=== PATIENT | female | born 1960 | race Caucasian/White ===

== ENCOUNTER 2020-07-22 14:02 | Inpatient (IN) | payer SELFPAY ==
[2020-07-22 17:37] VITALS: BMI 22.3
[2020-07-22] MEDS ORDERED: Morphine 4 MG/ML VIAL SLOW IVP PRN (17:53)
[2020-07-22] MEDS ORDERED: Dextrose 5% in Water 1,000 ML IV PRN (17:53)
[2020-07-22] MEDS ORDERED: Morphine 2 MG/ML VIAL SLOW IVP PRN (17:53)
[2020-07-22] MEDS ORDERED: Ondansetron PF 4 MG/2 ML Vial IVP PRN (17:53)
[2020-07-22] MEDS ORDERED: Promethazine HCl 25 MG/ML VIAL IM PRN (17:53)
[2020-07-22] MEDS ORDERED: Dextrose 50% Abboject 50 ML SYRINGE SLOW IVP PRN (17:53)
[2020-07-22] MEDS: Sodium Chloride 0.9% 1,000 ML IV SCH ×2 (18:00→21:10)
[2020-07-22] MEDS ORDERED: Cyclobenzaprine 10 MG TAB PO PRN (18:03)
[2020-07-22] MEDS ORDERED: traMADol HCl 50 MG TAB PO PRN ×2 (18:06)
[2020-07-22] MEDS ORDERED: Ibuprofen 200 MG TAB PO PRN (18:28)
[2020-07-22] MEDS ORDERED: Acetaminophen 325 MG TAB PO SCH ×2 (18:30→21:00)
--- NOTE | 2020-07-22 20:16 | HP ---
REQUESTING PROVIDER: [facility]. ATTENDING PHYSICIAN: Dr. Azevedo. CONSULTS: Orthopedic Surgery, Dr. Nice. CHIEF COMPLAINT: Fall from ladder, approximately 3 feet with delayed presentation; right knee pain. HISTORY OF PRESENT ILLNESS: This is a 60-year-old female who was on a ladder putting up Dre lights yesterday evening when she fell to the ground. The patient denies feeling weak or dizzy or lightheaded prior to falling. Patient did drink alcohol prior to climbing on the ladder. The patient also does report methamphetamine use. The patient denies any loss of consciousness. The patient states that she was home alone when this happened and did not think that her leg was broke. She thought she just had a sprain. The patient was unable to ambulate after falling. The patient presented to the [facility] the next day as she had persistent pain. The patient states that she took a muscle relaxer for the pain last night. The patient was evaluated at [facility] and found to have a comminuted displaced fracture of the proximal tibia and fibula. The patient was transferred to [facility] for definitive care. REVIEW OF SYSTEMS: A 10-point review of systems is negative unless otherwise indicated in the above HPI. PAST MEDICAL HISTORY: Cerebrovascular accident one year ago, reports occasional speech deficit, coronary artery disease, stent placement x1, hyperlipidemia, high cholesterol, and hypertension. PAST SURGICAL HISTORY: Denies. ALLERGIES: IODINE. MEDICATIONS: 1. Coreg 6.25 mg b.i.d. 2. Atorvastatin 20 mg daily. 3. Plavix 75 mg once a day. 4. Prilosec 20 mg daily. 5. Spironolactone 25 mg once a day. 6. Aspirin 81 mg once a day. 7. Folic acid daily. 8. Vitamin B daily. SOCIAL HISTORY: Drinks 3 to 4 wine coolers a day, smokes almost one pack a day, methamphetamine and marijuana use. OBJECTIVE: VITAL SIGNS: Temperature 98.6, pulse 100, respirations 16, SpO2 of 92% on 2 L nasal cannula, blood pressure 132/78. GENERAL: Middle-age female, older than stated age, awake and alert, no distress. HEENT: Mucous membranes moist. Head is atraumatic and normocephalic. Trachea midline, midface stable, oropharynx exam normal. NECK: No cervical spine tenderness, normal range of motion of neck, trachea midline. RESPIRATORY: Respirations are even and nonlabored. Bilateral breath sounds clear. No wheezing, rales, or rhonchi. CARDIAC: Regular rate, regular rhythm. No murmurs. No pedal edema. ABDOMEN: Soft, nontender, nondistended. PELVIS: Stable, no tenderness. EXTREMITIES: Moves all extremities, neurovascularly intact x4. Right lower extremity in a knee immobilizer. NEUROLOGIC: GCS 15, no focal deficits. LABORATORY DATA: WBC 11.5, RBC 4.38, hemoglobin 13.4, hematocrit 41.8, platelets 225. Sodium 136, potassium 3.8, chloride 99, BUN 12, creatinine 0.84, estimated GFR 69, glucose 118, calcium 9.4, AST 18, ALT 15, alkaline phos 96. CK 134, albumin 4.0. Urinalysis unremarkable. Toxicology, positive for opioids, amphetamines, and methamphetamines. DIAGNOSTIC DATA: Cervical spine CT; impression, no evidence of acute cervical fracture. Right knee x-ray; impression, comminuted displaced fracture of proximal tibia and fibula. Chest x-ray; impression, cardiomegaly, nipple shadows versus pulmonary parenchymal masses. Recommend a repeat chest x-ray with nipple markers. Brain CT; impression, no evidence of acute intracranial abnormality. ASSESSMENT: 1. Status post fall from ladder, approximately 3 feet with delayed presentation. 2. Right proximal tibia-fibula fracture. 3. Acute traumatic pain. 4. History of polysubstance abuse, coronary artery disease, cerebrovascular accident, and hypotension. PLAN: Admit to the surgical floor. Heart healthy diet. N.p.o. after midnight with medications and sips of water. Maintenance IV fluids, normal saline at 100 mL an hour. Orthopedic Surgery likely will take the patient to the OR tomorrow for repair of her right proximal tib-fib fracture. We will have PT and OT evaluate and treat postop. We will place a rehab screen just in case the patient needs additional rehab. Pain control. The plan was discussed with the attending. The plan was discussed with the patient who agrees. Job ID: [id number]
[2020-07-22] MEDS: Famotidine 20 MG TAB PO SCH (21:10)
[2020-07-22] MEDS: Senokot S 8.6-50 MG TAB PO SCH (21:11)
[2020-07-23] MEDS: Acetaminophen 325 MG TAB PO SCH ×5 (02:01→20:26)
[2020-07-23] MEDS ORDERED: Morphine 2 MG/ML VIAL SLOW IVP PRN (02:11)
--- NOTE | 2020-07-23 04:29 | PRG ---
DATE OF SERVICE: SUBJECTIVE: The patient was seen this evening during rounds. She was lying in bed, resting comfortably and asleep with no signs of acute distress. Nursing reported no acute events. OBJECTIVE: VITAL SIGNS: Temperature 98.3, pulse 88, respirations 14, oxygen saturation 92% on 2 L nasal cannula, and blood pressure 124/74. GENERAL: Well-appearing elderly female, lying in bed, resting comfortably and asleep with no signs of acute distress. PULMONARY: Equal chest rise and fall. No signs of acute respiratory distress. ASSESSMENT: 1. Status post fall from ladder. 2. Right tib-fib fracture. 3. History of coronary artery disease, cardiac stents, hypertension, methamphetamine use, alcohol abuse, and previous cerebrovascular accident. PLAN: Continue n.p.o. with normal saline at 100 an hour. Start Serax, multivitamins, thiamine, and folic acid. Start scheduled nebs. The patient is pending OR tomorrow with Dr. Nice. Job ID: [id number]
[2020-07-23 05:36] LABS: #Basophils 0.1 thou/uL (0.0-0.2); #Eosinphils 0.5 thou/uL (0.0-0.7); #Lymphocytes 2.5 thou/uL (1.20-3.40); #Monocytes 0.8 thou/uL (0.11-0.59); #Neutrophils 6.8 thou/uL (1.40-6.50); %Basophils 0.7 % (0.0-1.0); %Eosinophils 4.9 % (0.0-10.0); %Lymphocytes 23.3 % (21.0-51.0); %Monocytes 7.4 % (0.0-10.0); %Neutrophils 63.6 % (42.0-75.0); Hemoglobin 10.9 g/dL (12.0-16.0); Mean Corpuscular HGB CONC 33.3 g/dL (32.0-36.0); Mean Corpuscular Hemoglobin 32.3 pg (27.0-31.0); Mean Corpuscular Volume 96.9 fL (78.0-98.0); Mean Platelet Volume 8.6 fL (7.4-10.4); Platelet Count 175 thou/uL (130-400); RBC Distribution Width 11.7 % (11.5-14.5); Red Blood Cell (RBC) Count 3.38 mill/uL (4.20-5.40); White Blood Cell (WBC) Count 10.7 thou/uL (4.8-10.8)
[2020-07-23 05:38] LABS: Prothrombin Time 13.5 sec (12.0-14.7)
[2020-07-23 05:39] LABS: PTT 37.7 sec (22.9-36.1)
[2020-07-23 05:52] LABS: Phosphorus 2.6 mg/dL (2.3-4.7)
[2020-07-23 05:55] LABS: Anion Gap 11 mmol/L (10-20); BUN (Urea Nitrogen) 10 mg/dL (9.8-20.1); Calc. Creatinine Clearance 62 mL/min (70-130); Calcium 8.1 mg/dL (7.8-10.44); Carbon Dioxide 23 mmol/L (23-31); Chloride 106 mmol/L (98-107); Estimated GFR-MDRD 74; Glucose 106 mg/dL (80-115); Magnesium 1.8 mg/dL (1.6-2.6); Potassium 4.2 mmol/L (3.5-5.1); Sodium 136 mmol/L (136-145)
[2020-07-23] MEDS: Oxazepam 10 MG CAP PO SCH ×3 (06:28→20:26)
[2020-07-23] MEDS ORDERED: Magnesium 2 GM/50 ML 2 GM in Premix Bag 1 BAG IVPB SCH (07:30)
[2020-07-23] MEDS ORDERED: Potassium Phosphate 9 MMOL in Sodium Chloride 0.9% 100 ML IVPB SCH (07:30)
[2020-07-23] MEDS ORDERED: CEFAZOLIN 2 GM in Premix Bag 1 BAG IVPB SCH (07:45)
[2020-07-23] MEDS ORDERED: Sodium Phosphate 30 MMOL in Sodium Chloride 0.9% 250 ML 250 ML IVPB SCH (08:00)
--- NOTE | 2020-07-23 08:16 | CON ---
DATE OF CONSULTATION: 07/23/2020 This is Jory Godinez PA-C dictating a report for William Nice MD. REQUESTING PHYSICIAN: Trauma Services. CONSULTING PHYSICIAN: William Niec MD REASON FOR CONSULTATION: Right tibial plateau fracture. HISTORY OF PRESENT ILLNESS: This is a 60-year-old female who presented to the [facility] yesterday after a fall from a ladder while putting up Dre lights the previous day on 07/21/2020. The patient states she was drinking alcohol prior to climbing on the ladder and then fell. She believed at the time that she had a knee sprain, but was unable to ambulate. She also reports methamphetamine use. The patient denied any loss consciousness or head injury. Workup in the [place] [facility] revealed a right tibial plateau fracture. The patient was transferred to our facility for higher level of care and orthopedic surgery. Currently, at bedside, the patient does answer all questions. She is drowsy and falls asleep quickly. Much of her history has been obtained from records due to this. PAST MEDICAL HISTORY: Cerebrovascular accident one year ago, occasional speech deficit, coronary artery disease, stent placement x1, hyperlipidemia, high cholesterol, and hypertension. PAST SURGICAL HISTORY: The patient denies. ALLERGIES: IODINE. FAMILY HISTORY: Unavailable. SOCIAL HISTORY: The patient states that she lives at home with a sibling and a nephew. She ambulates independently. She does report half pack per day smoking history and 2 to 3 wine coolers per day. Also reports methamphetamine abuse. REVIEW OF SYSTEMS: Ten-point review of systems conducted and otherwise negative except for stated above. PHYSICAL EXAMINATION: VITAL SIGNS: Show current vital signs including temperature of 98, pulse of 75, respiratory rate of 14, O2 saturation of 96% on 2 L nasal cannula, and blood pressure 108/68. GENERAL: The patient is awake. She is drowsy at this time. She does follow commands and answer questions. She is in no apparent distress. HEENT: Head is normocephalic and atraumatic. NECK: Supple. Trachea midline. LUNGS: Breathing is nonlabored. EXTREMITIES: Evaluation of the patient's bilateral lower extremity shows the right lower extremity to be in a knee immobilizer. This was opened for evaluation of her skin and swelling. Skin is intact of the lower extremity. She does have minimal to moderate soft tissue swelling without any ecchymosis or fracture blistering at this time. She is able to move her ankle and foot. Distal neurovascular status intact. Dorsalis pedis pulses are present and palpable. Range of motion, not assessed. Log roll evaluation of the hip intact without any hip pain. Left lower extremity and bilateral upper extremity show to be atraumatic. No signs of obvious deformity or injury. RADIOGRAPHIC IMAGING: Available for review today taken yesterday in the [place] facility of the right knee shows evidence of a proximal tibia fracture of the plateau. This is comminuted with displacement. Slightly depressed on the lateral aspect. ASSESSMENT: Status post fall from ladder with right tibial plateau fracture. PLAN: At this point, the patient has been n.p.o. overnight. We will plan for surgical intervention this afternoon in order to restore her anatomic alignment and promote function and mobility. We will plan for ORIF right proximal tibia. The patient is admitted to the Trauma Service. Postoperatively, she will return to her room for pain control and physical therapy. She will be nonweightbearing postoperatively. Plan of care discussed with the patient today. She verbalized understanding and is amenable to this plan of care. Job ID: [id number] [facility]
[2020-07-23] MEDS ORDERED: Sodium Phosphate 20 MMOL, Magnesium Sulfate 2 GM in Sodium Chloride 0.9% 250 ML 250 ML IVPB SCH ×2 (08:45→18:00)
[2020-07-23] MEDS: Polyethylene Glycol 3350 17 GM Packet PO SCH (09:00)
[2020-07-23] MEDS ORDERED: FLU VACC QS2020-21(6MOS UP)/PF 60 MCG/0.5 ML SYRINGE IM ONE (09:00)
[2020-07-23] MEDS: Folic Acid 1 MG TAB PO SCH (09:00)
[2020-07-23] MEDS: Multivitamin W/ Minerals 1 TAB PO SCH (09:00)
[2020-07-23] MEDS: Famotidine 20 MG TAB PO SCH ×2 (09:00→20:27)
[2020-07-23] MEDS ORDERED: Magnesium Sulfate 2 GM in Sodium Chloride 0.9% 100 ML IVPB SCH (09:00)
[2020-07-23] MEDS: Thiamine 100 MG TAB PO SCH (09:01)
[2020-07-23] MEDS: Senokot S 8.6-50 MG TAB PO SCH ×2 (09:01→20:26)
[2020-07-23] MEDS ORDERED: PHENYLEPHRINE-NS 100 MCG/ML 10 ML SYRINGE ONE (11:29)
[2020-07-23] MEDS ORDERED: Lidocaine 1% PF 5 ML VIAL ONE (11:29)
[2020-07-23] MEDS ORDERED: Bupivacaine HCl 0.5%/Epinephrine 1:200,000/PF 30 ml Vial ONE (11:29)
[2020-07-23] MEDS ORDERED: PROPOFOL 200 MG/20 ML VIAL ONE (11:29)
[2020-07-23] MEDS ORDERED: Dexamethasone 20 MG/5 ML VIAL ONE (11:29)
--- NOTE | 2020-07-23 11:30 | RAD ---
EXAM: Chest 2 views: HISTORY: Bilateral lower lobe infiltrates versus nipple shadows. COMPARISON: 07/22/2020 FINDINGS: There is a normal-sized cardiomediastinal silhouette. Nipple marker is seen on the right. No definit e left nipple marker is seen. Opacity projecting over both lung bases are not in the region of the nipple marker on the right and appears more medial than the breast shadow suggesting that the abnorma lity is not a nipple shadow on the left. Trace pleural effusions may be present. Degenerative changes are seen in the spine. IMPRESSION: Bibasilar infiltrates
[2020-07-23 12:10] LABS: SARS-CoV-2 NAA Rapid Test Not Detected (NotDetected)
[2020-07-23] MEDS: traMADol HCl 50 MG TAB PO SCH ×2 (12:31→17:07)
[2020-07-23] MEDS ORDERED: Fentanyl 100 MCG/2 ML VIAL ONE ×2 (13:01→15:05)
[2020-07-23] MEDS ORDERED: Ondansetron HCl/PF 4 MG/2 ML Vial IVP PRN (14:46)
[2020-07-23] MEDS ORDERED: Promethazine HCl 25 MG/ML VIAL SLOW IVP PRN (14:46)
[2020-07-23] MEDS ORDERED: Promethazine HCl 25 MG/ML VIAL IM PRN (14:46)
--- NOTE | 2020-07-23 15:12 | RAD ---
RIGHT KNEE: 07/23/20 Two fluoroscopic images are presented from OR. INDICATIONS: Open reduction and internal fixation with fluoroscopic imaging. FINDINGS/IMPRESSION: these images show fixation of the proximal tibia with plate and screws. POS: [facility]
[2020-07-23] MEDS: Sodium Chloride 0.9% 1,000 ML IV SCH (15:28)
--- NOTE | 2020-07-23 17:59 | OP ---
DATE OF PROCEDURE: 07/23/2020 PROCEDURE PERFORMED: Open reduction and internal fixation of right proximal tibial plateau fracture. PREOPERATIVE DIAGNOSIS: Right lateral tibial plateau fracture with split and depression. POSTOPERATIVE DIAGNOSIS: Right lateral tibial plateau fracture with split and depression. COMPLICATIONS: None. ESTIMATED BLOOD LOSS: 100 mL. TANK CARPENTER: Jose Nino PA-C IMPLANTS: Synthes proximal tibial plateau plate 3.5 mm with multiple locking and nonlocking screws. INDICATIONS: Ms. Young is a 60-year-old female who has fallen and fractured her right proximal tibial plateau. She has been indicated for open reduction and internal fixation of the proximal tibia to restore anatomic alignment and promote healing. Risks have been reviewed in detail. She has elected to proceed with the operation. Goal of surgery is to promote healing in an anatomic fashion and prevent posttraumatic complications. DESCRIPTION OF PROCEDURE: Ms. Young was identified in the preoperative holding area. Her correct extremity was marked. She was carried to the operating room. She was positioned supine. General anesthesia was induced. A multidisciplinary time-out was performed. The right lower extremity was prepped and draped in a sterile fashion. We began the procedure with anterolateral approach to the proximal tibia. We dissected down through the subcutaneous tissues to the fascia, which was opened. We then exposed the underlying tibial plateau. The fascia was elevated proximally and distally. We exposed the underlying fracture. We elevated the tibial plateau laterally. At this point, we exposed the underlying joint and thoroughly irrigated. There was some comminution and depressed fragments. These were elevated back into their anatomic position with a hemostat. We held these with K-wire fixation. We then reduced the main fracture fragment with the lateral split. This was held with a reduction clamp. We applied a lateral plate. We held this again with a K-wire for stability. Next, we placed a distal screw followed by multiple locking screws proximally and distally, this locked the plate to the bone and held our reduction. We maintained anatomic reduction. At this point, we took final images. We thoroughly irrigated with copious lavage. We then repaired the perimeniscal tissues back to the proximal tibia plateau and then completed a layered closure. A sterile dressing was applied. The patient was taken to the recovery room in good condition. The behavioral modification assistant surgeon was responsible for positioning the patient, preparing the injured extremity, applying the tourniquet, and assisting in preparation for surgery. The behavioral modification assistant was instrumental in reducing the injured limb by applying traction and reduction maneuvers as well as holding retractors and reduction tools. The behavioral modification assistant also was instrumental in assisting in exposure throughout the operation using appropriate retractors. The behavioral modification assistant participated in closure of the operative site as well as dressing application and splint application. Job ID: [id number]
--- NOTE | 2020-07-23 18:44 | PRG ---
DATE OF SERVICE: 07/23/2020 SUBJECTIVE: The patient was seen during morning rounds with Dr. Azevedo. The patient is awake, alert, in no distress. The patient has been n.p.o. after midnight with plans for Orthopedic Surgery to repair her right proximal tibial plateau fracture. The patient's pain is well controlled at this time. OBJECTIVE: VITAL SIGNS: Blood pressure 142/84, temperature 98.2, pulse 68, respirations 16, SpO2 of 96% on 2 L nasal cannula. GENERAL: Middle-age female, appears comfortable, in no acute distress. PULMONARY: Good inspiratory and expiratory effort, respirations are even and nonlabored. CARDIAC: Regular rate, regular rhythm, no pedal edema. ABDOMEN: Soft, nontender, nondistended. EXTREMITIES: Moves all extremities, neurovascularly intact x4, right lower extremity in a knee immobilizer. NEUROLOGIC: No focal deficits. LABORATORY DATA: WBC 10.7, RBC 3.38, hemoglobin 10.9, hematocrit 32.8. PT 13.5, INR 1.0, aPTT 37.7. Sodium 136, potassium 4.2, chloride 106, BUN 10, creatinine 0.79, estimated GFR 74, glucose 106, calcium 8.1, phosphorus 2.6, magnesium 1.8. DIAGNOSTICS: There are no new diagnostics to review today. ASSESSMENT: 1. Status post fall from ladder. 2. Right tibial plateau fracture. 3. History of coronary artery disease, cardiac stents, hypertension, methamphetamine abuse, alcohol abuse, and previous cerebrovascular accident. PLAN: Regular diet as tolerated. Pain control and supportive care. Physical and Occupational Therapy to evaluate and treat postop. We will place a rehab screen as the patient may likely need additional physical therapy. We will continue alcohol withdrawal medications. The plan was discussed with the patient, who agrees. The patient was seen by Dr. Azevedo. Job ID: [id number]
[2020-07-23] MEDS: Fenofibrate Nanocrystallized 145 MG TAB PO SCH (20:25)
[2020-07-23] MEDS: CEFAZOLIN 2 GM in Premix Bag 1 BAG IVPB SCH (20:27)
[2020-07-24] MEDS: traMADol HCl 50 MG TAB PO SCH ×5 (00:27→23:58)
--- NOTE | 2020-07-24 02:54 | PRG ---
DATE OF SERVICE: 07/23/2020 SUBJECTIVE: The patient was seen this evening during rounds. She is lying in bed, resting comfortably and asleep with no signs of acute distress. Nursing reported no acute events. OBJECTIVE: VITAL SIGNS: Temperature 97.7, pulse 93, respirations 19, oxygen saturation 95% on room air, and blood pressure 126/76. ASSESSMENT: 1. Status post fall from ladder, on Plavix. 2. Right proximal tibial plateau fracture, status post repair. 3. History of coronary artery disease, cardiac stents, hypertension, polysubstance abuse, and cerebrovascular accident. PLAN: Continue current diet and pain regimen. Continue physical and occupational therapy. Continue supportive care. The patient is pending discharge to acute rehab facility. Job ID: [id number]
[2020-07-24] MEDS: Acetaminophen 325 MG TAB PO SCH ×4 (04:31→21:46)
[2020-07-24 05:25] LABS: Hemoglobin 10.9 g/dL (12.0-16.0); Mean Corpuscular HGB CONC 31.2 g/dL (32.0-36.0); Mean Corpuscular Hemoglobin 30.3 pg (27.0-31.0); Mean Platelet Volume 9.1 fL (7.4-10.4); Platelet Count 188 thou/uL (130-400); RBC Distribution Width 11.9 % (11.5-14.5); Red Blood Cell (RBC) Count 3.61 mill/uL (4.20-5.40); White Blood Cell (WBC) Count 11.7 thou/uL (4.8-10.8)
[2020-07-24] MEDS: Oxazepam 10 MG CAP PO SCH ×3 (05:38→21:47)
[2020-07-24] MEDS: CEFAZOLIN 2 GM in Premix Bag 1 BAG IVPB SCH (05:39)
[2020-07-24 05:58] LABS: Anion Gap 11 mmol/L (10-20); BUN (Urea Nitrogen) 9 mg/dL (9.8-20.1); Calc. Creatinine Clearance 69 mL/min (70-130); Calcium 8.5 mg/dL (7.8-10.44); Carbon Dioxide 26 mmol/L (23-31); Chloride 104 mmol/L (98-107); Estimated GFR-MDRD 83; Glucose 116 mg/dL (80-115); Magnesium 2.2 mg/dL (1.6-2.6); Phosphorus 3.4 mg/dL (2.3-4.7); Sodium 137 mmol/L (136-145)
[2020-07-24] MEDS: Lisinopril/Hydrochlorothiazide 20 mg/12.5 mg Tablet PO SCH (08:32)
[2020-07-24] MEDS: Famotidine 20 MG TAB PO SCH (08:32)
[2020-07-24] MEDS: Senokot S 8.6-50 MG TAB PO SCH ×2 (08:33→21:45)
[2020-07-24] MEDS: Polyethylene Glycol 3350 17 GM Packet PO SCH (08:33)
[2020-07-24] MEDS: Multivitamin W/ Minerals 1 TAB PO SCH (08:33)
[2020-07-24] MEDS: Thiamine 100 MG TAB PO SCH (08:33)
[2020-07-24] MEDS: Folic Acid 1 MG TAB PO SCH (08:33)
[2020-07-24] MEDS: Enoxaparin Sodium 40 MG/0.4 ML SYRINGE SC SCH (11:16)
[2020-07-24] MEDS: Gabapentin 300 MG CAP PO SCH ×2 (14:32→21:47)
--- NOTE | 2020-07-24 18:42 | PRG ---
DATE OF SERVICE: 07/24/2020 SUBJECTIVE: The patient was seen during morning rounds with Dr. Azevedo. Awake, alert, sitting up in bed. The patient is in moderate distress due to pain in her right leg. The patient also reports some pain to her right foot. The patient has no obvious deformities and has good range of motion. A sputum culture was obtained yesterday, which reveals normal respiratory rio. The patient continues to have a chronic cough. The patient is postop day #1 status post open reduction and internal fixation of her right proximal tibial plateau fracture. The patient is only able to pull 1000 mL on her incentive spirometer. OBJECTIVE: VITAL SIGNS: Temperature 98.6, pulse 92, respirations 18, SpO2 of 97% on 2 L nasal cannula, blood pressure 164/86, repeat later in the day 117/65. GENERAL: Middle-age female, moderate distress due to pain. PULMONARY: Good inspiratory and expiratory effort, respirations are even and nonlabored, chronic productive cough. CARDIAC: Regular rate, regular rhythm. No pedal edema. ABDOMEN: Soft, nontender, nondistended. EXTREMITIES: Moves all extremities. Neurovascularly intact x4. Right lower extremity is in a splint. Pain to right foot, no obvious injuries and good range of motion. NEUROLOGIC: No focal deficits. LABORATORY DATA: WBC 11.7, RBC 3.61, hemoglobin 10.9, hematocrit 35.0, platelets 188. Sodium 137, potassium 4.0, BUN 9, creatinine 0.71, estimated GFR 83, glucose 116, calcium 8.5, phosphorus 3.4, magnesium 2.2. DIAGNOSTICS: No new diagnostics to review today. ASSESSMENT: 1. Status post fall from ladder. 2. Right tibial plateau fracture, postop day #1. Status post open reduction and internal fixation. 3. History of coronary artery disease, cardiac stents. 4. Hypertension. 5. Methamphetamine abuse. 6. Alcohol abuse. 7. Previous cerebrovascular accident. PLAN: Continue diet as tolerated. Continue aggressive pulmonary toilet with the use incentive spirometer every hour while awake. Increase pain regimen. We will add gabapentin 300 mg 3 times a day. We will also start patient on chemical VTE prophylaxis. We will continue physical and occupational therapy. Unfortunately, patient has no insurance and this will be difficult to get the patient placed into rehab. The patient is nonweightbearing, right lower extremity. We will have the patient work with physical therapy and once the patient is safe ambulating, the patient can be discharged home. The plan was discussed with the patient who agrees. The patient was examined by Dr. Azevedo. Job ID: [id number]
[2020-07-24] MEDS: Fenofibrate Nanocrystallized 145 MG TAB PO SCH (21:46)
--- NOTE | 2020-07-25 02:06 | PRG ---
DATE OF SERVICE: 07/25/2020 SUBJECTIVE: The patient was seen this evening during rounds. She was lying in bed, resting comfortably and asleep with no signs of acute distress. OBJECTIVE: VITAL SIGNS: Temperature 98, pulse 99, respirations 18, oxygen saturation 93% on room air, and blood pressure 146/89. ASSESSMENT: 1. Status post fall from ladder, on Plavix. 2. Right proximal tibial plateau fracture, status post repair. 3. History of coronary artery disease, cardiac stents, hypertension, polysubstance abuse, and cerebrovascular accident. PLAN: Continue current diet and pain regimen. Continue physical and occupational therapy. The patient is pending discharge home when safe, but she has no insurance. She is ready for discharge whenever deemed appropriate by Physical Therapy. Job ID: [id number]
[2020-07-25] MEDS: Acetaminophen 325 MG TAB PO SCH ×5 (03:22→21:25)
[2020-07-25] MEDS: traMADol HCl 50 MG TAB PO SCH ×3 (04:24→18:26)
[2020-07-25] MEDS: Oxazepam 10 MG CAP PO SCH ×3 (06:07→21:24)
[2020-07-25 06:14] LABS: Hemoglobin 10.1 g/dL (12.0-16.0); Mean Corpuscular Hemoglobin 32.3 pg (27.0-31.0); Mean Platelet Volume 8.9 fL (7.4-10.4); Platelet Count 202 thou/uL (130-400); RBC Distribution Width 12.1 % (11.5-14.5); Red Blood Cell (RBC) Count 3.14 mill/uL (4.20-5.40); White Blood Cell (WBC) Count 11.3 thou/uL (4.8-10.8)
[2020-07-25] MEDS: Lisinopril/Hydrochlorothiazide 20 mg/12.5 mg Tablet PO SCH (08:13)
[2020-07-25] MEDS: Folic Acid 1 MG TAB PO SCH (08:13)
[2020-07-25] MEDS: Senokot S 8.6-50 MG TAB PO SCH ×2 (08:13→21:24)
[2020-07-25] MEDS: Multivitamin W/ Minerals 1 TAB PO SCH (08:13)
[2020-07-25] MEDS: Gabapentin 300 MG CAP PO SCH ×3 (08:13→21:53)
[2020-07-25] MEDS: Thiamine 100 MG TAB PO SCH (08:13)
[2020-07-25] MEDS: Polyethylene Glycol 3350 17 GM Packet PO SCH (08:14)
[2020-07-25] MEDS: Enoxaparin Sodium 40 MG/0.4 ML SYRINGE SC SCH (08:14)
[2020-07-25] MEDS ORDERED: traMADol HCl 50 MG TAB PO PRN (10:55)
[2020-07-25] MEDS: Bisacodyl 10 MG SUPP PR SCH ×2 (11:36→18:28)
--- NOTE | 2020-07-25 13:51 | PRG ---
DATE OF SERVICE: 07/25/2020 SUBJECTIVE: Ms. Young is a 60-year-old female, who is postop day 2 for an ORIF of right tibia and fibular fracture after a fall from a ladder. The patient reports her right knee is in a lot of pain and does not feel that her pain is well controlled. Otherwise, she is eating well and comfortable on room air. She has not had a bowel movement, but she is passing gas. OBJECTIVE: VITAL SIGNS: Temperature 97.7, pulse 98, respirations 18, O2 saturation 92 on room air, and blood pressure 119/77. GENERAL: Middle-aged female, comfortable in bed. PULMONARY: Good inspiratory and expiratory effort. Respirations are even and nonlabored. CARDIAC: Regular rate and rhythm. Moderate edema of right foot. ABDOMEN: Soft, nontender, and nondistended. EXTREMITIES: Moving all extremities well. Right lower extremity is in a splint. NEUROLOGICAL: No focal deficits. LABORATORY DATA: White blood count is 11.3, hemoglobin is 10.1, hematocrit is 30.7, and platelets are 202. ASSESSMENT: 1. Status post fall from ladder. 2. Right tibial plateau fracture postop day 2, status post open reduction and internal fixation. 3. History of coronary artery disease and cardiac stents. 4. Hypertension. 5. Methamphetamine use. 6. Alcohol abuse. 7. Previous cerebrovascular accident. PLAN: 1. Increase the patient's tramadol from 50 mg b.i.d. to 100 mg b.i.d. 2. The patient does not have insurance, will likely not be approved for rehab placement. The patient will continue to work with PT and OT and we will await their evaluation for when she may be stable to be discharged home. The patient was seen and evaluated by Dr. Azevedo during morning rounds. Discussed plan and care with the patient and family, who are in agreement. Job ID: [id number]
[2020-07-25] MEDS ORDERED: Amoxicillin/Potassium Clav 875 MG TAB PO SCH (17:00)
[2020-07-25] MEDS: Amoxicillin/Potassium Clav 875 MG TAB PO SCH (21:24)
[2020-07-25] MEDS: Fenofibrate Nanocrystallized 145 MG TAB PO SCH (21:24)
[2020-07-26] MEDS: traMADol HCl 50 MG TAB PO SCH ×3 (02:02→12:21)
[2020-07-26] MEDS: Acetaminophen 325 MG TAB PO SCH ×3 (05:32→14:31)
[2020-07-26] MEDS: Oxazepam 10 MG CAP PO SCH ×2 (06:28→14:31)
[2020-07-26] MEDS: Lisinopril/Hydrochlorothiazide 20 mg/12.5 mg Tablet PO SCH (09:33)
[2020-07-26] MEDS: Senokot S 8.6-50 MG TAB PO SCH (09:33)
[2020-07-26] MEDS: Multivitamin W/ Minerals 1 TAB PO SCH (09:34)
[2020-07-26] MEDS: Thiamine 100 MG TAB PO SCH (09:35)
[2020-07-26] MEDS: Gabapentin 300 MG CAP PO SCH ×2 (09:35→14:31)
[2020-07-26] MEDS: Folic Acid 1 MG TAB PO SCH (09:35)
[2020-07-26] MEDS: Polyethylene Glycol 3350 17 GM Packet PO SCH (09:35)
[2020-07-26] MEDS: Amoxicillin/Potassium Clav 875 MG TAB PO SCH (09:35)
[2020-07-26] MEDS: Enoxaparin Sodium 40 MG/0.4 ML SYRINGE SC SCH (09:35)
[2020-07-26] MEDS: Bisacodyl 10 MG SUPP PR SCH (09:36)
[2020-07-26 11:33] VITALS: BP 121/73; TEMP 97.9
--- NOTE | 2020-07-26 14:41 | DIS ---
DATE OF ADMISSION: 07/22/2020 DATE OF DISCHARGE: 07/26/2020 DISCHARGE ATTENDING: Dr. Azevedo. CONSULTS: Orthopedic Surgery, Dr. Nice. PROCEDURES: On 07/22/2020, open reduction and internal fixation for right proximal tibial plateau fracture by Dr. Nice. PRIMARY DIAGNOSES: 1. Status post fall from ladder, approximately 3 feet with delayed presentation. 2. Right proximal tibia plateau fracture. 3. Acute traumatic pain secondary to injury. 4. Pneumonia, positive culture, presumptive strep pneumoniae, treated with Augmentin. SECONDARY DIAGNOSES: 1. History of polysubstance abuse. 2. Coronary artery disease. 3. Cerebral vascular accident. 4. Hypertension. DISCHARGE MEDICATIONS: 1. Acetaminophen 650 mg p.o. q.6 hours. Please continue with medications. 2. Amoxicillin 875 mg p.o. q.12 hours for nine days, #17. 3. Flexeril 10 mg p.o. 3 times a day p.r.n. muscle spasms, #20, no refills. 4. Gabapentin 300 mg p.o. q.6 hours three times a day as needed for pain, #60 with one refill. 5. Fenofibrate 145 mg p.o. at bedtime. 6. Ibuprofen 400 mg p.o. q.8 hours p.r.n. breakthrough pain. 7. Lisinopril/hydrochlorothiazide 20 mg/12.5 mg one tablet p.o. daily. 8. Multivitamin daily. 9. Senokot and MiraLAX as needed for constipation. 10. Tramadol 50 mg q.6 hours 1 to 2 tabs p.r.n. pain #60 with one refill. 11. Vitamin C 1000 mg p.o. daily. 12. Dulcolax suppository as needed for constipation. 13. Calcium carbonate/vitamin D3 one tablet daily. 14. Potassium gluconate 500 mg p.o. daily. 15. No discontinued medications. HISTORY OF PRESENT ILLNESS AND HOSPITAL COURSE: This is a 60-year-old female who was on a ladder putting up [place] lights the evening before presenting to the emergency room when she fell, landing on the ground. The patient denied feeling weak, dizzy, or lightheaded prior to falling. The patient did report consuming alcohol prior to climbing the ladder. The patient also does report methamphetamine use. The patient denies any loss of consciousness. The patient states that she had right leg pain after falling, but thought it was just a sprain. The patient continued to drink to help with pain control and decided to be seen the next morning as she continued to have pain and difficulty ambulating. The patient presented to the [facility] the next morning in which she was examined and found to have a left proximal tibial plateau fracture. The patient also states that she took muscle relaxers the night before for the pain. The patient was transferred to [facility] for definitive care. The patient did have some pain control issues preop and postop. The patient reported a chronic productive cough. She smokes daily. Sputum cultures were obtained and the patient had presumptive strep pneumoniae and was treated with Augmentin. The patient eventually was able to ambulate using a walker. Ideally, the patient would have benefitted from rehab, but unfortunately patient is uninsured. The patient did have an extended length of stay for additional physical therapy. On the day of discharge, the patient's vital signs were stable and her exam was unremarkable including cardiopulmonary and GI exam. The patient was deemed safe for discharge home with family. DISPOSITION: Stable. DISCHARGE INSTRUCTIONS: 1. Location: Home. 2. Diet: Regular diet as tolerated. 3. Activity: Orthopedic limitations, nonweightbearing. Left lower extremity with a knee immobilizer in place at all times. The patient is to use a walker to ambulate. 4. Follow up: Follow up with Dr. Nice [facility] in 2 weeks. Follow up with primary care physician within seven days. No need to follow up with Trauma Services, Dr. Azevedo. Please call for any questions. The plan was discussed with the patient who agrees. The prescription monitoring program was accessed and appropriate. This is just a summary of the patient's hospital visit. Please see the entire chart for details. Job ID: [id number]
== END 2020-07-26 15:37 | disposition home or self-care (01) | DRG 492 ==
LOC: SURG B 14:02 → OBSVTOIN 17:53
PROVIDERS: ADMIT Surgery; ATTEND Surgery
PROC: 0QSG04Z Reposition Right Tibia with Internal Fixation Device, Open Approach (ICD-10-PCS; principal; 2020-07-23)
DX: S82.141A Displaced bicondylar fracture of right tibia, initial encounter for closed fracture (principal); J13 Pneumonia due to Streptococcus pneumoniae; Z20.828 Contact with and (suspected) exposure to other viral communicable diseases; W11.XXXA Fall on and from ladder, initial encounter; I25.10 Atherosclerotic heart disease of native coronary artery without angina pectoris; E78.5 Hyperlipidemia, unspecified; E78.00 Pure hypercholesterolemia, unspecified; I10 Essential (primary) hypertension; F15.10 Other stimulant abuse, uncomplicated; F10.10 Alcohol abuse, uncomplicated; Z23 Encounter for immunization; Z91.041 Radiographic dye allergy status; Z79.899 Other long term (current) drug therapy; I69.328 Other speech and language deficits following cerebral infarction; Z95.5 Presence of coronary angioplasty implant and graft
CPT/HCPCS: 36415; 71046; 76000; 80048; 83735; 84100; 85025; 85027; 85610; 85730; 87070; 87077; 87186; 87205; 94640; C1713; J0690; J1100; J1650; J2270; J2704; J3010; J3475; J3490; J7050; J7620; U0002

== ENCOUNTER 2020-08-11 21:54 | Inpatient (IN) | payer SELFPAY ==
--- NOTE | 2020-08-11 22:40 | RAD ---
XR Chest 1 View Portable History: Shortness of breath Comparison: Radiograph August 22, 2020 Findings: Partially resolved lower lobe airspace opacities. New right upper lobe airspace opacity. No pneumothorax. No effusion. Heart size is similar. Impression: Partial resolution of lower lobe with the right upper lobe airspace opacity can be seen w ith organizing pneumonia.
[2020-08-11 23:11] LABS: Anion Gap 18 mmol/L (10-20); Carbon Dioxide 27 mmol/L (23-31); Chloride 96 mmol/L (98-107); Potassium 5.2 mmol/L (3.5-5.1); Sodium 136 mmol/L (136-145)
[2020-08-11 23:13] LABS: BUN (Urea Nitrogen) 34 mg/dL (9.8-20.1); Bilirubin, Total 0.5 mg/dL (0.2-1.2); Calc. Creatinine Clearance 0 mL/min (70-130); Calcium 9.9 mg/dL (7.8-10.44); Glucose 107 mg/dL (80-115); Protein, Total 8.2 g/dL (5.8-8.1)
[2020-08-11 23:14] LABS: ALT (SGPT) 11 U/L (8-55); AST (SGOT) 20 U/L (5-34); Alkaline Phosphatase 154 U/L (40-110); Globulin 4.2 g/dL (2.4-3.5)
[2020-08-11] MEDS ORDERED: Piperacillin/Tazobactam 4.5 GM VIAL ONE (23:14)
[2020-08-11 23:20] LABS: Hemoglobin 11.9 g/dL (12.0-16.0); Mean Corpuscular Hemoglobin 30.1 pg (27.0-31.0); Mean Corpuscular Volume 93.8 fL (78.0-98.0); Red Blood Cell (RBC) Count 3.95 mill/uL (4.20-5.40); White Blood Cell (WBC) Count 20.6 thou/uL (4.8-10.8)
[2020-08-11 23:22] LABS: Manual Diff?? YES; Mean Corpuscular HGB CONC 32.1 g/dL (32.0-36.0); Mean Platelet Volume 8.1 fL (7.4-10.4); Platelet Count 526 thou/uL (130-400); RBC Distribution Width 11.9 % (11.5-14.5)
[2020-08-11 23:24] LABS: Band 36 % (5-11); Eosinophils 5 % (0-10); Lymphocytes 5 % (21-51); Metamyelocyte 1 % (0-0); Monocytes 2 % (0-10); Neutrophil 51 % (42-75)
[2020-08-11 23:27] LABS: MDiff Complete? YES
--- NOTE | 2020-08-11 23:56 | CT ---
CTA Angio Chest W WO Con History: Dyspnea Comparison: Radiograph chest same day. Findings: CT angiogram chest performed after the intravenous administration of contrast. 3-D renderin g provided. No proximal segmental pulmonary arterial filling defect. Small volume pericardial fluid. Moderate sli ding hiatal hernia. Reactive mediastinal lymph nodes. Abnormal right upper lobe parenchymal opacity with some foci of stefanie tral necrosis. Mild tubular bronchiectasis left lower lobe with peripheral consolidation and likely developing scar. Mild right lower lobe bronchiectasis. No pneumothorax. Thoracic spine is intact. Old right-sided rib fractures. No new acute rib fracture. Impression: 1. No pulmonary embolism. 2. Right upper lobe pneumonia with small foci of central necrosis. 3. Moderate left lower lobe tubular bronchiectasis with inspissated peripheral debris and developing scar likely sequelae of healing response to recent pneumonia. 4. Mild tubular bronchiectasis right lower lobe. 5. Follow-up radiograph after treatment recommended. Given the central necrosis in close proximity of the right upper lobe pneumonia with the adjacent bronchi, bronchoscopic evaluation may be beneficial. 6. Moderate hiatal hernia.
[2020-08-12] MEDS ORDERED: Lorazepam 2 MG/ML VIAL ONE (00:37)
[2020-08-12] MEDS ORDERED: Succinylcholine 200 MG/10 ml SYRINGE FS ONE (00:40)
[2020-08-12] MEDS ORDERED: Fentanyl 100 MCG/2 ML VIAL ONE (01:03)
[2020-08-12] MEDS ORDERED: Midazolam HCl 2 mg/2 ml Vial ONE (01:08)
[2020-08-12] MEDS ORDERED: Electrolyte Replacement Protocol 1 EACH IVPB PRN (01:17)
[2020-08-12] MEDS ORDERED: Acetaminophen 325 MG Suppository PR PRN (01:17)
[2020-08-12] MEDS ORDERED: Acetaminophen 650 MG Suppository ONE ×2 (01:27→01:38)
[2020-08-12] MEDS ORDERED: Vancomycin 1 GM/200 ML BAG ONE (01:27)
[2020-08-12] MEDS ORDERED: methylPREDNISolone Sod Succ/PF 125 MG/2 ML VIAL ONE (01:27)
[2020-08-12] MEDS ORDERED: Ventilator Sedation Protocol 1 EACH FS SCH (01:30)
[2020-08-12] MEDS ORDERED: VANCOMYCIN IVPB PRN (01:36)
[2020-08-12 01:45] LABS: Actual Bicarbonate (HCO3a) 21.5 mEq/L (22-28); Analyzer IN Cardio ER; Base Excess (BEa) -6.1 mEq/L (-2.0 to +3.0); CO2 Tension 52.6 mmHg (35.0-45.0); Calcium, Ionized (arterial) 1.14 mmol/L (1.12-1.30); Carboxyhemoglobin (COHb) 0.3 gm% (0.0-3.0); Hemoglobin (Hb) 10.4 g/dL (12.0-16.0); O2 Tension (PaO2), arterial 130.6 mmHg (> 80.0); Potassium - ABG Lab 4.72 mmol/L (3.70-5.30)
[2020-08-12] MEDS ORDERED: Lorazepam 2 MG/ML VIAL SLOW IVP PRN (01:45)
[2020-08-12] MEDS ORDERED: DISCONTINUE PREVIOUS NARCOTIC PAIN MEDICATIONS AND BENZODIAZEPINES FS SCH (01:45)
[2020-08-12] MEDS ORDERED: Fentanyl BOLUS 250 ML IVPB PRN (01:45)
[2020-08-12] MEDS ORDERED: Morphine 2 MG/ML VIAL SLOW IVP PRN (01:45)
[2020-08-12] MEDS ORDERED: Cefepime 2 GM in Sodium Chloride 0.9% 100 ML IVPB SCH (01:45)
[2020-08-12] MEDS ORDERED: Propofol BOLUS 1,000 MG/100 ML VIAL IV PRN (01:45)
--- NOTE | 2020-08-12 01:49 | PDOC.BPN ---
- Brief Progress Note [id number] HP dictated
[2020-08-12] MEDS ORDERED: Norepinephrine 8 MG/0.9% NS 250 ML ONE (02:10)
[2020-08-12 02:47] LABS: SARS-CoV-2 NAA Rapid Test Not Detected (NotDetected)
[2020-08-12 03:33] LABS: Bilirubin Negative (Negative); Blood, Urine Negative (Negative); Clarity Clear (Clear); Glucose, Urine (Dipstick) Normal (Negative); Ketone, Urine Negative (Negative); Leukocyte Negative Leu/uL (Negative); Nitrite Negative (Negative); Protein, Urine (Dipstick) 20 mg/dL (Neg-Trace); Urobilinogen Normal mg/dL (Less than 2)
[2020-08-12 03:36] LABS: Lactic Acid 1.8 mmol/L (0.5-2.2)
[2020-08-12 03:36] LABS: Specific Gravity, Urine 1.046 (1.002-1.036)
[2020-08-12 03:47] LABS: Vancomycin, Trough 30.8 ug/mL
[2020-08-12 04:15] LABS: Lactic Acid 0.9 mmol/L (0.5-2.2)
--- NOTE | 2020-08-12 04:55 | HP ---
CHIEF COMPLAINT: Shortness of breath and chest pain. HISTORY OF PRESENT ILLNESS: Ms. Young is a 60-year-old female with past medical history of polysubstance abuse as per records, coronary artery disease, CVA, hypertension, presented to the emergency room with shortness of breath, left posterior chest pain, generalized weakness for the last few days. The patient was recently admitted to the hospital after she had a fractured tibia and fibula surgery, and developed pneumonia. The patient was discharged on amoxicillin. The patient reports that she has had shortness of breath since she was discharged from the hospital on July 26. She denies nausea, vomiting, diarrhea, abdominal pain, fever, or chills. While in the emergency room, patient's respiratory condition deteriorated, became more hypoxic with increased work of breathing, requiring the patient to be intubated and mechanically ventilated. No further history can be obtained at this time. Currently, patient is intubated and sedated. PAST MEDICAL HISTORY: As mentioned above in history of present illness. PAST SURGICAL HISTORY: Tib-fib surgery. PAST PSYCHIATRIC HISTORY: Anxiety. SOCIAL HISTORY: The patient currently uses drugs, abuses marijuana, abuses methamphetamine. The patient also currently smokes half pack a day. Denies alcohol use as per records. FAMILY HISTORY: Reviewed and noncontributory. ALLERGIES: ALLERGIC TO IODINE. HOME MEDICATIONS: See home medication reconciliation form for updated medications. REVIEW OF SYSTEMS: Unable to obtain. The patient is currently intubated, sedated, mechanically ventilated. PHYSICAL EXAMINATION: GENERAL: The patient is intubated and sedated, mechanically ventilated. VITAL SIGNS: Current vital signs on ventilator, blood pressure is 100/60, pulse is 130, respiratory rate is 22, oxygen saturation is 96% on the ventilator, temperature 99.2. HEAD AND NECK: Normocephalic. Neck is supple. CHEST: Coarse bilateral breath sounds/bilateral expiratory wheeze. HEART: S1, S2. Regular. Tachycardic. ABDOMEN: Soft. Bowel sounds present. NEURO: Intubated, sedated, unable to assess. EXTREMITIES: The right knee is immobilized, recent surgery. PSYCH: Unable to assess. EXTREMITIES: No clubbing or cyanosis. LABORATORY DATA/IMAGING: As mentioned above in history of present illness. CTA of the chest showed right upper lobe pneumonia with small foci of central necrosis. No pulmonary embolism. There is moderate left lower tubular bronchiectasis and also mild tubular bronchiectasis in right lower lobe. Troponin 0.01. Sodium 136, potassium 5.2, BUN is 34, creatinine 1.1. WBC 20.6, hemoglobin 11.9, platelets 526. ASSESSMENT: 1. Acute hypoxic respiratory failure. 2. Pneumonia? Healthcare associated/community-acquired? 3. Sepsis secondary to pneumonia. 4. History of polysubstance abuse. 5. Recent orthopedic surgery/recent trauma. 6. History of coronary artery disease. 7. History of cerebrovascular accident. PLAN: 1. Admit to CCU. 2. Continue full ventilator support. 3. Septic workup done in the ED. 4. Broad-spectrum IV antibiotics. 5. Bronchodilators as needed. 6. IV steroids. 7. Keep n.p.o. for now. 8. Consult Pulmonary/Water Taxi Operator for critical care/vent management. 9. Reconcile home medications. 10. DVT prophylaxis as appropriate. 11. GI prophylaxis as appropriate. 12. The patient's condition is critical. 13. Expected length of stay, 3 midnights or more. Job ID: [id number]
[2020-08-12] MEDS: Sodium Chloride 0.9% 1,000 ML IV SCH ×2 (06:12→14:22)
[2020-08-12] MEDS: Azithromycin 500 MG in Sodium Chloride 0.9% 250 ML 250 ML IVPB SCH (06:12)
[2020-08-12] MEDS: methylPREDNISolone Sod Succ 40 MG VIAL IVP SCH ×3 (06:41→17:10)
[2020-08-12 07:49] LABS: Actual Bicarbonate (HCO3a) 19.2 mEq/L (22-28); Base Excess (BEa) -4.9 mEq/L (-2.0 to +3.0); CO2 Tension 32.2 mmHg (35.0-45.0); Calcium, Ionized (arterial) 1.16 mmol/L (1.12-1.30); Carboxyhemoglobin (COHb) 0.1 gm% (0.0-3.0); Hemoglobin (Hb) 10.4 g/dL (12.0-16.0); O2 Tension (PaO2), arterial 114.6 mmHg (> 80.0); pH, Arterial 7.39 (7.35-7.45)
[2020-08-12 07:50] LABS: Puncture Site LRA
--- NOTE | 2020-08-12 07:54 | RAD ---
Portable frontal chest radiograph: 08/12/2020 COMPARISON: 08/11/2020 HISTORY: Dyspnea, shortness of breath FINDINGS: New endotracheal tube in proper position. There is a nasogastric tube present, distal tip p roximal to the gastroesophageal junction. Nasogastric tube should be advanced. Worsening linear opacity in the medial left base suggests left lower lobe infectious pneumonitis or aspiration with pr obable associated bronchiectasis. Focal opacity in the right perihilar region noted, slightly worsened, better assessed on CT examination performed 08/11/2020. Supine imaging limits assessment for pneumothorax and pleural fluid. IMPRESSION: Nonspecific focal opacity in the right perihilar region and increased linear density in t he medial left base. Lines and tubes as detailed above. Recommend advancing the nasogastric tube.
[2020-08-12] MEDS: Famotidine/PF 20 mg/2ml Vial SLOW IVP SCH (08:02)
[2020-08-12] MEDS ORDERED: Heparin 5,000 UNITS/ML VIAL SC SCH (09:00)
[2020-08-12] MEDS ORDERED: Norepinephrine 8 MG/0.9% NS 250 ML IVPB SCH (09:45)
[2020-08-12] MEDS ORDERED: Nicotine 21 MG PATCH TOP SCH (12:00)
[2020-08-12] MEDS: Cefepime 2 GM in Sodium Chloride 0.9% 100 ML IVPB SCH (14:26)
[2020-08-12] MEDS: fentaNYL Citrate/PF 2,000 MCG in Sodium Chloride 0.9% 60 ML IV SCH (15:29)
[2020-08-12 16:19] LABS: Amphetamine Not Detected (NotDetected); Barbiturates Screen Not Detected (NotDetected); Benzodiazepine Screen Detected (NotDetected); Cocaine Metabolite Screen Not Detected (NotDetected); Medtox Control Line Valid? VALID (VALID); Medtox Reader # READER 4; Methadone Not Detected (NotDetected); Methamphetamine Detected (NotDetected); Opiate Screen Not Detected (NotDetected); Oxycodone Screen Not Detected (NotDetected); Phencyclidine (PCP) Not Detected (NotDetected); THC/Cannabinoid Screen Not Detected (NotDetected); Tricyclic Screen Not Detected (NotDetected)
[2020-08-12 16:23] LABS: Anion Gap 13 mmol/L (10-20); BUN (Urea Nitrogen) 24 mg/dL (9.8-20.1); Calc. Creatinine Clearance 78 mL/min (70-130); Calcium 8.6 mg/dL (7.8-10.44); Carbon Dioxide 20 mmol/L (23-31); Chloride 108 mmol/L (98-107); Glucose 134 mg/dL (80-115); Magnesium 1.6 mg/dL (1.6-2.6); Potassium 4.2 mmol/L (3.5-5.1); Sodium 137 mmol/L (136-145)
[2020-08-12 16:27] LABS: Troponin I 0.875 ng/mL (< 0.028)
[2020-08-12] MEDS ORDERED: Magnesium 2 GM/50 ML 2 GM in Premix Bag 1 BAG IVPB SCH (16:45)
[2020-08-12] MEDS ORDERED: Enoxaparin Sodium 60 MG/0.6 ML SYRINGE SC SCH (17:00)
[2020-08-12] MEDS: Propofol 1,000 MG/100 ML VIAL IV PRN (17:09)
[2020-08-12] MEDS ORDERED: Aspirin 325 MG TAB PO SCH (17:15)
--- NOTE | 2020-08-12 18:49 | PDOC.HOSPP ---
- Subjective Encounter Date: 08/12/20 Encounter Time: 14:00 Subjective: Patient was seen and examined in ICU. She was intubatedcould not communicate. She was admitted on account of pneumonia and started antibiotics. Nurse called me to inform me that she was having bigeminy Ordered troponin 0.87 from 0.013 at presentation. Magnesium was also slightly result 1.6. Started on aspirin and Lovenox Replace magnesium Consulted cardiology. Patient had oozing from the site of femoral line. Platelets were above 500,000 in a.m.repeat CBC We will however continue with Lovenox and aspirin follow-up for NSTEMI Monitor. - Objective Vital Signs & Weight: Vital Signs (12 hours) Temp Pulse Resp Pulse Ox 08/12/20 18:00 20 08/12/20 16:00 20 08/12/20 14:00 20 08/12/20 13:51 93 08/12/20 12:00 20 08/12/20 10:58 93 08/12/20 10:00 20 08/12/20 08:00 20 99 08/12/20 07:38 75 08/12/20 07:00 99.8 F H Weight Admit Weight 128 lb Weight 128 lb 8.472 oz Most Recent Monitor Data Heart Rate from ECG 66 NIBP 101/61 NIBP BP-Mean 74 Respiration from ECG 20 SpO2 98 I&O: 08/11/20 08/12/20 08/13/20 06:59 06:59 06:59 Intake Total 1229.5 Output Total 60 760 Balance -60 469.5 Result Diagrams: 08/11/20 22:31 08/12/20 15:49 Hospitalist ROS - Medication Medications: Active Medications Generic Name Dose Route Start Last Admin Trade Name Freq PRN Reason Stop Dose Admin Aspirin 325 mg 08/12/20 17:15 08/12/20 17:43 Aspirin 325 Mg Tab PO 08/12/20 19:15 325 mg NOW MARCUS Administration Enoxaparin Sodium 60 mg 08/12/20 17:00 08/12/20 17:43 Enoxaparin Sodium 60 Mg/0.6 Ml Syringe SC 08/12/20 19:00 60 mg NOW MARCUS Administration Famotidine 20 mg 08/12/20 09:00 08/12/20 08:02 Famotidine/Pf 20 Mg/2ml Vial SLOW IVP 20 mg 0900 MARCUS Administration Fentanyl Citrate 2,000 mcg/ 100 mls @ 0 mls/hr 08/12/20 01:15 08/12/20 15:29 Sodium Chloride IV 09/11/20 01:15 100 mls INF MARCUS Administration Protocol Per Protocol Cefepime HCl 2 gm/ Sodium 100 mls @ 200 mls/hr 08/12/20 14:00 08/12/20 14:26 Chloride IVPB 100 mls 0200,1400 MARCUS Administration Azithromycin 500 mg/ Sodium 250 mls @ 250 mls/hr 08/12/20 01:30 08/12/20 06:12 Chloride IVPB Not Given Q24HR MARCUS Sodium Chloride 1,000 mls @ 75 mls/hr 08/12/20 01:30 08/12/20 14:22 Normal Saline 0.9% IV 1,000 mls .[id number] MARCUS Administration Methylprednisolone Sodium Succinate 40 mg 08/12/20 06:00 08/12/20 17:10 Methylprednisolone Sod Succ 40 Mg Vial IVP 40 mg Q6HR MARCUS Administration Nicotine 21 mg 08/12/20 12:00 08/12/20 12:43 Nicotine 21 Mg Patch TOP 21 mg Q24HR MARCUS Administration Propofol 1,000 mg 08/12/20 01:45 08/12/20 17:09 Propofol 1,000 Mg/100 Ml Vial IV 09/11/20 01:45 1,000 mg INF PRN Administration TO ACHIEVE GOAL RASS Protocol
--- NOTE | 2020-08-12 19:07 | CON ---
DATE OF CONSULTATION: 08/12/2020 HISTORY OF PRESENT ILLNESS: Nicky Young is a 60-year-old female who was intubated in the emergency department. She was in the hospital last month here, but has not been in the hospital before that. She apparently fell off a ladder at that time and was reported as using methamphetamine and alcohol prior to falling off the ladder. She had a tib-fib displaced fracture. According to those records, she drinks 3 to 4 wine coolers a day and smokes a pack a day. Uses methamphetamine and marijuana. She was hospitalized from the and was discharged on the . She did have a chest x-ray during that admission that showed actually bibasilar infiltrates. She was discharged on Augmentin for 9 more days after discharge. It appears from reviewing all records that she has had a CVA in the past. She has a history of hypertension. She has a history of coronary artery disease. FAMILY HISTORY: Negative for lung disease in early age according to old records. REVIEW OF SYSTEMS: Not obtainable. PHYSICAL EXAMINATION: VITAL SIGNS: Heart rate is 93, blood pressure 104/66, respiratory rate is 20, FiO2 is at 40%. HEENT: Pupils are reactive. Sclerae are anicteric. NECK: Supple. LUNGS: Remarkable for distant breath sounds with prolonged expiratory phase. HEART: Regular rhythm. S1 and S2 are normal. ABDOMEN: Soft and nontender without guarding or masses. EXTREMITIES: Without clubbing, cyanosis, or edema. ASSESSMENT AND PLAN: Chest CT is reviewed showing a small area of alveolar infiltrate with central necrosis. It is not very large. This would not explain her shortness of breath. It is more likely that her shortness of breath would be related to an airway issue such as chronic obstructive pulmonary disease or asthma given her prolonged expiratory phase. I will repeat a drug screen while she is here. We will continue with mechanical ventilation for now. She is not weanable today, but we will reassess her in the morning. Looking at her blood gas, her pH is 7.39, pCO2 is 32, and pO2 is 114. She did not have an acid-base disorder on presentation that would explain tachypnea. She did have a high serum protein and globulin. There is no lab for comparison with regard to this well, but I will doubt that is secondary to intravascular volume depletion with her drinking and drug history. We will follow the other physicians caring for. CRITICAL CARE TIME: 30 minutes. Job ID: [id number] MTDD
[2020-08-12 21:44] LABS: Critical Call Chem Troponin I RESULT DECREASING; Troponin I 0.776 ng/mL (< 0.028)
[2020-08-12 22:15] LABS: Band 27 % (5-11); Hemoglobin 9.5 g/dL (12.0-16.0); Lymphocytes 9 % (21-51); MDiff Complete? YES; Mean Corpuscular Hemoglobin 30.8 pg (27.0-31.0); Mean Corpuscular Volume 96.5 fL (78.0-98.0); Mean Platelet Volume 8.2 fL (7.4-10.4); Neutrophil 64 % (42-75); Platelet Count 418 thou/uL (130-400); RBC Distribution Width 11.9 % (11.5-14.5); Red Blood Cell (RBC) Count 3.08 mill/uL (4.20-5.40)
--- NOTE | 2020-08-12 22:26 | CON ---
DATE OF CONSULTATION: HISTORY OF PRESENT ILLNESS: Nicky Roe is a 60-year-old white female who currently is intubated and sedated in the ICU. History is obtained from reviewing her recent admission. She apparently has coronary artery disease and stent placement x1; although, no particulars regarding when that was done are available. She also had history of cerebrovascular accident one year ago. She was admitted here on July 22 after she fell off a ladder while putting up [place] lights. She went to the [place] ER the next day due to persistent pain and found to have a comminuted displaced fracture of the proximal tibia and fibula. She then underwent open reduction, internal fixation of the right proximal tibial plateau fracture. It is of note that she was on Plavix 75 daily and aspirin 81 daily. However, neither one of those medications were on her discharge medicine list. She was discharged on July 26. Also during that admission, she did develop pneumonia and was treated with antibiotics. She then presented early this morning again to the emergency room complaining of increased shortness of breath. She also had some left posterior chest pain. In emergency room, her respiratory status deteriorated. She became more hypoxic and was intubated and is currently sedated. She currently is on norepinephrine and propofol. PAST MEDICAL HISTORY: Cerebrovascular accident 1 year ago, history of coronary artery disease with stent placement, unknown date, hypercholesterolemia, hypertension. OPERATIONS: ORIF of right proximal tibial plateau fracture. Coronary artery stent placement. MEDICATIONS: 1. Augmentin 875 mg b.i.d. 2. Dulcolax p.r.n. 3. Flexeril 10 mg t.i.d. p.r.n. 4. Fenofibrate 145 at bedtime. 5. Gabapentin 300 t.i.d. 6. Ibuprofen 400 q.8 hours p.r.n. 7. Lisinopril/hydrochlorothiazide daily. 8. Potassium gluconate 500 mg daily. 9. Senokot. 10. Ultram. 11. (Also of note is that she was on carvedilol 6.25 b.i.d. when first admitted and this was not on her discharge medicine list). ALLERGIES: IODINE, UNKNOWN REACTION. SOCIAL HISTORY: She smokes one pack per day. She uses methamphetamine and marijuana. Drinks 3-4 wine coolers per day. REVIEW OF SYSTEMS: Unobtainable. PHYSICAL EXAMINATION: VITAL SIGNS: Blood pressure 104/64, pulse of 71, occasional PVCs. HEENT: PERRL. NECK: Supple. CHEST: Clear. CARDIAC: S1 and S2 normal without any S3, S4, or murmurs. ABDOMEN: Normal bowel sounds without tenderness. EXTREMITIES: Reveal no clubbing, cyanosis, or edema. NEUROLOGICAL: Patient is sedated. LABORATORY DATA: Initial EKG revealed sinus tachycardia, 134 per minute with anterior infarction, low voltage. Subsequent EKG reveals normal sinus rhythm with low voltage and new anterolateral T-wave changes consistent with ischemia. Hemoglobin 11.9, hematocrit 37.1, white count 20,600, platelets 526. Ph 7.39, pCO2 32.2, PO2 114.6. Sodium 137, potassium 4.2, chloride 108, carbon dioxide 20, BUN 24, creatinine 0.69. Troponin I is up to 0.875. IMPRESSION: 1. Acute hypoxic respiratory failure. 2. Possible pneumonia with sepsis related to this. 3. History of polysubstance abuse with methamphetamines in the urine. 4. History of coronary artery disease status post stent placement. She was on aspirin and Plavix at the time of her admission with her leg fracture and apparently this was never restarted at time of discharge. 5. New anterolateral T changes consistent with ischemia, NSTEMI type 1. 6. Hypertension 7. Hypercholesterolemia 8. Smoker. 9. History of cerebrovascular accident. PLAN: Aspirin has been restarted, also restart her on Plavix since I am uncertain when her coronary artery stent was placed. Once we are able to get a better history, we will try to get records from when she had her CVA as well as when she had coronary artery stent placed. She will continue with broad-spectrum antibiotics. Echocardiogram has been ordered. Job ID: [id number] [facility]
--- NOTE | 2020-08-13 00:03 | PDOC.EVN ---
Event Note - Event Note Event Note: Nursing reports bleeding from femoral central line site, oral cavity and NGT. Patient intubated, on levophed, VSS. Patient on LMWH 1mg/kg and ASA. Hold anticoagulation, check DIC panel, T&S. Recent H/H drop 2 points compared to previous day. Will recheck H/H at 0100. Discussed with Dr. Spangler.
[2020-08-13 00:18] LABS: Fibrinogen 572 mg/dL (253-463); INR-International Normal Ratio 1.3
[2020-08-13 00:19] LABS: D-Dimer Test 1.59 *mcg/mL (0.27-0.43)
[2020-08-13 00:42] LABS: FSP-Qualitative Normal (Normal)
[2020-08-13 00:46] LABS: Platelet Count 409 thou/uL (130-400)
[2020-08-13 00:49] LABS: Puncture Site LRA; pH, Arterial 7.23 (7.35-7.45)
[2020-08-13] MEDS: Propofol 1,000 MG/100 ML VIAL IV PRN (01:05)
[2020-08-13] MEDS: methylPREDNISolone Sod Succ 40 MG VIAL IVP SCH ×5 (01:06→23:32)
[2020-08-13] MEDS: Azithromycin 500 MG in Sodium Chloride 0.9% 250 ML 250 ML IVPB SCH (01:45)
[2020-08-13 01:55] LABS: Troponin I 0.816 ng/mL (< 0.028)
[2020-08-13] MEDS ORDERED: Vancomycin 1 GM in Premix Bag 1 BAG IVPB SCH (02:00)
[2020-08-13] MEDS: Cefepime 2 GM in Sodium Chloride 0.9% 100 ML IVPB SCH ×2 (04:17→14:00)
[2020-08-13 05:03] LABS: ALT (SGPT) 9 U/L (8-55); AST (SGOT) 22 U/L (5-34); Albumin 2.9 g/dL (3.4-4.8); Alkaline Phosphatase 121 U/L (40-110); Anion Gap 13 mmol/L (10-20); BUN (Urea Nitrogen) 25 mg/dL (9.8-20.1); Bilirubin, Total 0.2 mg/dL (0.2-1.2); Calc. Creatinine Clearance 74 mL/min (70-130); Carbon Dioxide 21 mmol/L (23-31); Chloride 107 mmol/L (98-107); Globulin 3.2 g/dL (2.4-3.5); Glucose 157 mg/dL (80-115); Potassium 4.1 mmol/L (3.5-5.1); Protein, Total 6.1 g/dL (6.0-8.3); Sodium 137 mmol/L (136-145)
[2020-08-13 05:36] LABS: Hemoglobin 9.2 g/dL (12.0-16.0); Mean Corpuscular Hemoglobin 31.4 pg (27.0-31.0); Mean Corpuscular Volume 98.2 fL (78.0-98.0); Mean Platelet Volume 8.6 fL (7.4-10.4); Platelet Count 389 thou/uL (130-400); RBC Distribution Width 11.9 % (11.5-14.5); Red Blood Cell (RBC) Count 2.92 mill/uL (4.20-5.40); White Blood Cell (WBC) Count 25.5 thou/uL (4.8-10.8)
[2020-08-13 05:51] LABS: Band 40 % (5-11); Lymphocytes 4 % (21-51); MDiff Complete? YES; Monocytes 1 % (0-10); Neutrophil 55 % (42-75)
[2020-08-13] MEDS: Sodium Chloride 0.9% 1,000 ML IV SCH ×2 (06:36→17:55)
--- NOTE | 2020-08-13 08:02 | RAD ---
Portable frontal chest radiograph: 08/13/2020 COMPARISON: 08/12/2020 HISTORY: Ventilated CCU patient FINDINGS: Focal opacity in the right perihilar region persists. There is hazy linear increased densit y again noted within the left lung base as well. Endotracheal tube and nasogastric tube are unchanged. IMPRESSION: No significant interval change. Continued follow-up to resolution advised.
[2020-08-13 08:15] LABS: Base Excess (BEa) 0.4 mEq/L (-2.0 to +3.0); CO2 Tension 34.7 mmHg (35.0-45.0); Calcium, Ionized (arterial) 1.23 mmol/L (1.12-1.30); Carboxyhemoglobin (COHb) 0.3 gm% (0.0-3.0); Hemoglobin (Hb) 9.5 g/dL (12.0-16.0); O2 Tension (PaO2), arterial 136.8 mmHg (> 80.0); Potassium - ABG Lab 4.05 mmol/L (3.70-5.30); pH, Arterial 7.46 (7.35-7.45)
[2020-08-13 08:16] LABS: Puncture Site LRA
[2020-08-13 08:18] LABS: ALV-art Gradient 105.025 mmHg (0-20)
[2020-08-13] MEDS: fentaNYL Citrate/PF 2,000 MCG in Sodium Chloride 0.9% 60 ML IV SCH ×2 (08:26→23:12)
[2020-08-13] MEDS ORDERED: Enoxaparin Sodium 60 MG/0.6 ML SYRINGE SC SCH (09:00)
[2020-08-13] MEDS: Famotidine/PF 20 mg/2ml Vial SLOW IVP SCH ×2 (09:00→20:55)
[2020-08-13] MEDS ORDERED: Aspirin 81 mg Enteric Coated Tablet PO SCH ×2 (09:00)
[2020-08-13] MEDS ORDERED: Aspirin 325 MG TAB PO SCH (09:00)
[2020-08-13 17:24] LABS: Hemoglobin 8.3 g/dL (12.0-16.0)
--- NOTE | 2020-08-13 17:25 | PDOC.HOSPP ---
- Subjective Encounter Date: 08/13/20 Encounter Time: 11:00 Subjective: Patient was seen and examined in bed. She remained in ICU on ventilator support. She had oozing of blood from her right groin catheter placement site and threw him off overnight. DIC panel ordered and were all negative. Her Lovenox was stopped as well as aspirin - Objective Vital Signs & Weight: Vital Signs (12 hours) Temp Pulse Resp Pulse Ox 08/13/20 14:00 14 08/13/20 13:41 70 08/13/20 12:00 98.9 F 14 08/13/20 10:39 74 08/13/20 10:00 14 08/13/20 09:00 98.8 F 08/13/20 08:09 73 08/13/20 08:00 14 100 08/13/20 06:00 20 Weight Admit Weight 128 lb Weight 126 lb 8.725 oz Most Recent Monitor Data Heart Rate from ECG 74 NIBP 115/65 NIBP BP-Mean 81 Respiration from ECG 18 SpO2 99 I&O: 08/12/20 08/13/20 08/14/20 06:59 06:59 06:59 Intake Total 2606.5 Output Total 60 2305 515 Balance -60 301.5 -515 Result Diagrams: 08/13/20 14:13 08/13/20 04:10 Hospitalist ROS - Medication Medications: Active Medications Generic Name Dose Route Start Last Admin Trade Name Freq PRN Reason Stop Dose Admin Albuterol/Ipratropium 3 ml 08/12/20 19:00 08/13/20 13:41 Ipratropium/Albuterol Sulfate 3 Ml Neb NEB 3 ml [id number] MARCUS Administration Fentanyl Citrate 2,000 mcg/ 100 mls @ 0 mls/hr 08/12/20 01:15 08/13/20 08:26 Sodium Chloride IV 09/11/20 01:15 100 mls INF MARCUS Administration Protocol Per Protocol Cefepime HCl 2 gm/ Sodium 100 mls @ 200 mls/hr 08/12/20 14:00 08/13/20 04:17 Chloride IVPB 100 mls 0200,1400 MARCUS Administration Azithromycin 500 mg/ Sodium 250 mls @ 250 mls/hr 08/12/20 01:30 08/13/20 01:45 Chloride IVPB 250 mls Q24HR MARCUS Administration Sodium Chloride 1,000 mls @ 75 mls/hr 08/12/20 01:30 08/13/20 06:36 Normal Saline 0.9% IV 1,000 mls .[id number] MARCUS Administration Vancomycin HCl 1 gm/ Device 200 mls @ 200 mls/hr 08/13/20 02:00 08/13/20 01:06 IVPB 200 mls 0200 MARCUS Administration Lorazepam 2 mg 08/12/20 01:45 08/13/20 11:02 Lorazepam 2 Mg/Ml Vial SLOW IVP 09/11/20 01:45 2 mg Q1H PRN Administration Breakthrough agitation Methylprednisolone Sodium Succinate 40 mg 08/12/20 06:00 08/13/20 12:35 Methylprednisolone Sod Succ 40 Mg Vial IVP 40 mg Q6HR MARCUS Administration Propofol 1,000 mg 08/12/20 01:45 08/13/20 01:05 Propofol 1,000 Mg/100 Ml Vial IV 09/11/20 01:45 1,000 mg INF PRN Administration TO ACHIEVE GOAL RASS Protocol - Exam General - other findings: Patient in bed, on ventilator support. Eye: anicteric sclera Eye - other findings: Pupils reactive bilaterally Heart: RRR, no murmur, no gallops Respiratory - other findings: Mechanical breath sounds bilaterally, occasional wheezing. No event Gastrointestinal: soft, non-distended, normal bowel sounds Extremities: no cyanosis, no clubbing, no edema Extremities - other findings: Catheter site right groin oozing blood Neurological - other findings: Patient obtunded on ventilator Psychiatric - other findings: Unable to assess Hosp A/P - Plan This is a 60-year-old female patient recent admission on account of right lower limb fracture status post surgery, presents with worsening shortness of breath and admitted for severe pneumonia required intubation. She also has a history of CVA and CAD status post stenting. On 08/12/2020 while on intubation in ICU she developed bigeminy and troponins were elevatedwas started on Lovenox and aspirin however these have been discontinued on account of bleeding. Acute hypoxic respiratory failure Secondary to pneumonia PE ruled out with CTA Continue on ventilator support Appreciate pulmonology input Pneumonia Continue antibioticsazithromycin and cefepime and vancomycin Pulmonology following. NSTEMI Bigeminy with elevated troponin a day ago Echocardiogram shows an akinetic wall motion Started on Lovenox however discontinued account of increasing bleeding. Aspirin was also discontinued Cardiology following. Bleeding Patient bleeding from right groin femoral access Also bleeding noted from mouth She does not appear to be coagulopathic however Hold Lovenox and monitor. GI consulted for possible GI bleed evaluation. Right lower limb fracture Status post ORIF We will consult orthopedics once stable History of CVA Continue monitoring Carotid artery disease Status post stenting Awaiting transfer of information CODE STATUSto be discussed. VTE prophylaxisSCD on account of bleeding
--- NOTE | 2020-08-13 18:53 | PRG ---
DATE OF SERVICE: 08/13/2020 SUBJECTIVE: Nicky Young remains mechanically ventilated. She has been oozing from all puncture sites. Surprisingly, yesterday her coags were normal. I have given her plasma today. She has had bleeding in her mouth, bleeding from her femoral line. She has an adequate number of platelets. OBJECTIVE: LUNGS: Remarkable for coarse equal breath sounds. HEART: Regular rhythm. ABDOMEN: Soft. Her hemodynamics are stable. IMPRESSION: 1. Pneumonia. 2. Probable chronic obstructive pulmonary disease. 3. Apparently, the family has relayed to the nursing staff that she is an extremely heavy drinker. She has been told in the past that if she does not quit drinking, she is not going to live another year. We are at a one year point from when she was told that. She was given Lovenox yesterday, which may have contributed to her oozing. Hopefully, the plasma will help. She will continue with steroids and nebulizer treatments. Steroid dosing will be decreased in the morning and we will continue to make slow changes in ventilatory support. Blood cultures are negative. I see no reason to continue vancomycin. Critical care time, 30 minutes. Job ID: [id number]
[2020-08-13 19:45] LABS: Hemoglobin 6.9 g/dL (12.0-16.0)
[2020-08-14 00:17] LABS: Hemoglobin 7.9 g/dL (12.0-16.0)
[2020-08-14] MEDS: Cefepime 2 GM in Sodium Chloride 0.9% 100 ML IVPB SCH ×2 (00:39→14:21)
[2020-08-14 02:08] LABS: Vancomycin, Trough 7.4 ug/mL
--- NOTE | 2020-08-14 04:20 | CON ---
DATE OF CONSULTATION: 08/13/2020 REASON FOR CONSULTATION: GI bleeding. HISTORY OF PRESENT ILLNESS: Ms. Nicky Young is a 60-year-old female seen in the ER last night with dyspnea on chest pain. Since admission, the patient was seen by Dr. Vance Galicia and Dr. Maksim See. Apparently, she was in respiratory failure and respiratory distress and was intubated. She is on the ventilator. She had an NG tube, which is draining dark blood. Also, nurse has been suctioning the throat very frequently. There was fresh blood clots. Not very sure if the blood is coming from the mouth or if she has some upper GI bleeding. The patient's history is not available. The patient apparently was seen here three weeks ago with fracture of the right tibia and fibula and had a surgery by Dr. Nice. I was not able to obtain medical history. Apparently, one of the nurses spoke to her daughter and daughter told the nurses that she has had coronary stent placement a few months ago at [place]. She also was told to have liver cirrhosis and also stopped drinking. Apparently, the patient is drinking very heavily and as per daughter, she continues to drink heavy alcohol. There is no history of GI bleeding before she came to the hospital. There is also history of polysubstance abuse in the past. She has history of coronary artery disease, CVA, hypertension, etc. The patient had a colonoscopy in 2016, and has had polyps removed. Her vital signs are actually stable. Her pulse is 86, blood pressure 148/78. Her lab data shows anemia. The hemoglobin on admission 11.9, hematocrit 37.1, platelet count 526,000, WBC 20,600, it has been dropping down slowly. The most recent hemoglobin has dropped to 6.9 tonight. She has had no melena. No relevant history overall. MEDICAL ILLNESSES: 1. Hypertension. 2. Coronary artery disease. 3. CVA. 4. Colon polyp. 5. History of coronary stent placement few months ago in [place]. 6. Liver cirrhosis for the family. 7. History of recent fracture of the right leg and surgery. 8. History of anxiety. SOCIAL HISTORY: As per admitting history and physical, apparently she uses methamphetamine and also uses drugs like marijuana, etc. She smoked half a packet of cigarettes per day. As per daughter, she has history of chronic alcohol abuse. ALLERGIES: IODINE. REVIEW OF SYSTEMS: Unfortunately, 12-point system review could not be obtained. PHYSICAL EXAMINATION: GENERAL: She is on the ventilator, sedated. VITAL SIGNS: Stable as mentioned earlier. HEENT: Conjunctivae clear. CARDIOVASCULAR: Normal heart sounds. LUNGS: Clear to auscultation. ABDOMEN: Soft and nondistended. Abdomen is nontender. EXTREMITIES: In the right leg, she has leg stabilizer and some screws. CLINICAL IMPRESSION: 1. Gastrointestinal bleeding, etiology unclear, possibilities include esophageal varices, erosive gastritis, bleeding ulcer, etc. 2. Pneumonia. 3. Possible chronic obstructive pulmonary disease. 4. Hypertension. 5. Status post cerebrovascular accident recovery. 6. Coronary artery disease, status post stent placement few months ago. 7. History of liver cirrhosis for the family. PLAN: 1. Continue to follow the labs. 2. Transfuse p.r.n. 3. Emergent EGD tonight and I will make further recommendations. As per the consult by Dr. Galicia, she has possible anterolateral T-wave changes consistent with ischemia and possibly non-STEMI type 1. Job ID: [id number]
[2020-08-14] MEDS: Propofol 1,000 MG/100 ML VIAL IV PRN ×2 (04:46→19:00)
--- NOTE | 2020-08-14 04:46 | OP ---
DATE OF PROCEDURE: 08/13/2020 OPERATIVE PROCEDURE: Esophagogastroduodenoscopy. PREOPERATIVE DIAGNOSIS: Suspected gastrointestinal bleeding as she has had constant suctioning of throat with blood clots and fresh blood coming up. The NG tube also showed some coffee-ground material. POSTOPERATIVE DIAGNOSES: 1. Normal esophageal mucosa. No heme staining noted. No esophageal varices seen. 2. She had a distal esophageal ring nonobstructing. 3. Gastric polyps and polyps in the duodenum. There was no fresh blood or any active bleeding seen in the stomach. Although, she had diffuse coating of the gastric mucosa, some coffee-ground material. DESCRIPTION OF PROCEDURE: The patient was already on the ventilator. She was given a propofol bolus at 10 cc increment. Total was 30 cc. A bite block was placed. The patient on the left lateral position. A [employer]ax videogastroscope under direct vision passed down the oropharynx, past the GE junction into the stomach. The esophageal mucosa appears completely normal. There was no heme staining seen. There was no coffee-ground coating of the mucosa seen. There was no esophageal varices seen. The GE junction showed an esophageal ring nonobstructing. Upon entering the stomach, the patient was found to have diffuse coating of the gastric mucosa with coffee-ground material. There were some clots seen. There was no fresh blood seen. Water was irrigated and washed . There were some gastric polyps on the gastric body. The incisura angularis, gastric antrum, and duodenum, descending colon, no pathology. She had some duodenal polyp. The scope was carefully withdrawn and examination of the posterior pharynx does show some fresh blood and clots. IMPRESSION: Bleeding appears to be more from the oral cavity and posterior pharynx. RECOMMENDATION: 1. Consider ENT input. 2. Her blood count has been dropping down to 6.9 from 11. We plan to transfuse 2 units of packed RBCs today and let us check the blood count tomorrow morning. Job ID: [id number]
[2020-08-14 05:06] LABS: ALT (SGPT) 9 U/L (8-55); AST (SGOT) 14 U/L (5-34); Alkaline Phosphatase 87 U/L (40-110); Anion Gap 12 mmol/L (10-20); BUN (Urea Nitrogen) 25 mg/dL (9.8-20.1); Bilirubin, Total 0.3 mg/dL (0.2-1.2); Calc. Creatinine Clearance 83 mL/min (70-130); Calcium 8.8 mg/dL (7.8-10.44); Carbon Dioxide 25 mmol/L (23-31); Cardiac Risk 4.8 (Less than 4.5); Chloride 108 mmol/L (98-107); Cholesterol 158 mg/dl (< 200 Desired); Globulin 2.8 g/dL (2.4-3.5); Glucose 121 mg/dL (80-115); HDL Cholesterol 33 mg/dL (>60 Neg Risk); LDL Cholesterol, Calculated 98 mg/dL; Potassium 4.3 mmol/L (3.5-5.1); Protein, Total 5.8 g/dL (6.0-8.3); Sodium 141 mmol/L (136-145); Triglycerides 133 mg/dL (Less than 150)
[2020-08-14] MEDS: methylPREDNISolone Sod Succ 40 MG VIAL IVP SCH ×4 (05:14→23:05)
[2020-08-14 05:39] LABS: Band 20 % (5-11); Hemoglobin 8.9 g/dL (12.0-16.0); Lymphocytes 4 % (21-51); MDiff Complete? YES; Mean Corpuscular HGB CONC 34.3 g/dL (32.0-36.0); Mean Corpuscular Hemoglobin 32.5 pg (27.0-31.0); Mean Corpuscular Volume 94.7 fL (78.0-98.0); Mean Platelet Volume 8.9 fL (7.4-10.4); Monocytes 6 % (0-10); Myelocyte 1 % (0-0); Neutrophil 69 % (42-75); Platelet Count 248 thou/uL (130-400); RBC Distribution Width 11.8 % (11.5-14.5); Red Blood Cell (RBC) Count 2.75 mill/uL (4.20-5.40); White Blood Cell (WBC) Count 18.7 thou/uL (4.8-10.8)
[2020-08-14 07:51] LABS: Actual Bicarbonate (HCO3a) 23.6 mEq/L (22-28); CO2 Tension 38.2 mmHg (35.0-45.0); Calcium, Ionized (arterial) 1.26 mmol/L (1.12-1.30); Carboxyhemoglobin (COHb) 0.3 gm% (0.0-3.0); Hemoglobin (Hb) 7.5 g/dL (12.0-16.0); O2 Tension (PaO2), arterial 61.2 mmHg (> 80.0); Potassium - ABG Lab 4.11 mmol/L (3.70-5.30); pH, Arterial 7.41 (7.35-7.45)
[2020-08-14 08:01] LABS: Puncture Site RRA
[2020-08-14] MEDS: Famotidine/PF 20 mg/2ml Vial SLOW IVP SCH ×2 (09:00→20:08)
--- NOTE | 2020-08-14 09:08 | RAD ---
PORTABLE CHEST: Date: 08/14/2020 HISTORY: Respiratory distress. FINDINGS: Endotracheal and NG tubes remain in satisfactory position. Right upper lobe parenchymal changes are s table as compared to the prior exam. IMPRESSION: Essentially stable chest. POS: ABI
[2020-08-14] MEDS: Sodium Chloride 0.9% 1,000 ML IV SCH ×2 (12:00→23:06)
[2020-08-14] MEDS ORDERED: Vecuronium 10 MG VIAL IV SCH (13:00)
[2020-08-14 13:12] LABS: Hemoglobin 8.3 g/dL (12.0-16.0)
[2020-08-14] MEDS: fentaNYL Citrate/PF 2,000 MCG in Sodium Chloride 0.9% 60 ML IV SCH (14:31)
--- NOTE | 2020-08-14 17:02 | PRG ---
DATE OF SERVICE: 08/14/2020 SUBJECTIVE: Hannah remains mechanically ventilated. Her upper airway bleeding has apparently stopped. Dr. Swann assisted with this and appreciate that. OBJECTIVE: VITAL SIGNS: Blood pressure 118/67, heart rate 67, and respiratory rates in the teens. LUNGS: Distant and clear. HEART: Regular rhythm. ABDOMEN: Soft. EXTREMITIES: Without asymmetry. DIAGNOSTIC STUDIES: Chest x-ray shows persistent right upper lobe infiltrate. She underwent endoscopy today, showing no varices. She did have polyps in her duodenum and her stomach. No bleeding was identified. White count 18.7, hemoglobin 8.9 this morning and 8.3 this afternoon, and platelets 248. Electrolytes are unremarkable, creatinine 0.6. IMPRESSION: 1. Respiratory failure secondary to pneumonia and chronic obstructive pulmonary disease. 2. History of heavy alcohol use. 3. Upper airway bleeding, now stopped after Nose and Throat evaluation. 4. Tib-fib fracture after falling off a ladder. 5. Drug screen positive for methamphetamines again this admission. PLAN: Continue ventilatory support with slow weaning. Critical care time 35 min. Job ID: [id number] MTDD
--- NOTE | 2020-08-14 19:13 | PDOC.HOSPP ---
- Subjective non-verbal - Objective Vital Signs & Weight: Vital Signs (12 hours) Temp Pulse Resp BP Pulse Ox 08/14/20 19:00 98.8 F 08/14/20 18:43 66 111/64 08/14/20 18:00 14 08/14/20 16:00 98.5 F 14 08/14/20 14:55 67 118/67 08/14/20 14:00 14 08/14/20 12:01 82 98/52 L 08/14/20 12:00 98.5 F 14 08/14/20 10:00 14 08/14/20 08:00 14 99 08/14/20 07:41 68 98/54 L Weight Admit Weight 128 lb Weight 132 lb 11.492 oz Most Recent Monitor Data Heart Rate from ECG 66 NIBP 108/62 NIBP BP-Mean 77 Respiration from ECG 14 SpO2 98 I&O: 08/13/20 08/14/20 08/15/20 06:59 06:59 06:59 Intake Total 2606.5 3356 1102 Output Total 2305 1755 295 Balance 301.5 1601 807 Result Diagrams: 08/14/20 12:45 08/14/20 04:00 Hospitalist ROS - Medication Medications: Active Medications Generic Name Dose Route Start Last Admin Trade Name Freq PRN Reason Stop Dose Admin Albuterol/Ipratropium 3 ml 08/12/20 19:00 08/14/20 18:41 Ipratropium/Albuterol Sulfate 3 Ml Neb NEB 3 ml [id number] MARCUS Administration Famotidine 20 mg 08/13/20 21:00 08/14/20 09:00 Famotidine/Pf 20 Mg/2ml Vial SLOW IVP 20 mg BID MARCUS Administration Fentanyl Citrate 2,000 mcg/ 100 mls @ 0 mls/hr 08/12/20 01:15 08/14/20 14:31 Sodium Chloride IV 09/11/20 01:15 100 mls INF MARCUS Administration Protocol Per Protocol Cefepime HCl 2 gm/ Sodium 100 mls @ 200 mls/hr 08/12/20 14:00 08/14/20 14:21 Chloride IVPB 100 mls 0200,1400 MARCUS Administration Sodium Chloride 1,000 mls @ 75 mls/hr 08/12/20 01:30 08/14/20 12:00 Normal Saline 0.9% IV 1,000 mls .[id number] MARCUS Administration Norepinephrine Bitartrate 250 mls @ 0 mls/hr 08/12/20 09:45 08/13/20 17:56 Levophed IVPB 250 mls INF MARCUS Administration Protocol Titrate Lorazepam 2 mg 08/12/20 01:45 08/13/20 11:02 Lorazepam 2 Mg/Ml Vial SLOW IVP 09/11/20 01:45 2 mg Q1H PRN Administration Breakthrough agitation Methylprednisolone Sodium Succinate 40 mg 08/12/20 06:00 08/14/20 18:05 Methylprednisolone Sod Succ 40 Mg Vial IVP 40 mg Q6HR MARCUS Administration Propofol 1,000 mg 08/12/20 01:45 08/14/20 19:00 Propofol 1,000 Mg/100 Ml Vial IV 09/11/20 01:45 1,000 mg INF PRN Administration TO ACHIEVE GOAL RASS Protocol - Exam General Appearance: NAD General - other findings: Intubated and sedated Heart: RRR, no murmur, no gallops, no rubs, normal peripheral pulses Respiratory: CTAB, no wheezes, no rales, no ronchi, normal chest expansion Gastrointestinal: soft, non-tender, non-distended, normal bowel sounds, no palpable masses, no hepatomegaly, no splenomegaly, no bruit Extremities: no cyanosis, no clubbing, no edema Extremities - other findings: Right knee brace Hosp A/P (1) Acute respiratory failure with hypoxia Code(s): J96.01 - ACUTE RESPIRATORY FAILURE WITH HYPOXIA Status: Acute (2) Oral bleeding Code(s): K13.79 - OTHER LESIONS OF ORAL MUCOSA Status: Acute (3) Tibial plateau fracture, right Code(s): S82.141A - DISPLACED BICONDYLAR FRACTURE OF RIGHT TIBIA, INIT Status: Acute (4) NSTEMI (non-ST elevated myocardial infarction) Code(s): I21.4 - NON-ST ELEVATION (NSTEMI) MYOCARDIAL INFARCTION Status: Acute (5) Carotid stenosis Code(s): I65.29 - OCCLUSION AND STENOSIS OF UNSPECIFIED CAROTID ARTERY Status: Acute (6) History of CVA (cerebrovascular accident) Code(s): Z86.73 - PRSNL HX OF TIA (TIA), AND CEREB INFRC W/O RESID DEFICITS Status: Acute (7) Pneumonia Code(s): J18.9 - PNEUMONIA, UNSPECIFIED ORGANISM Status: Acute (8) Coagulopathy Status: Acute - Plan This is a 60-year-old female patient recent admission on account of right lower limb fracture status post surgery, presents with worsening shortness of breath and admitted for severe pneumonia required intubation. She also has a history of CVA and CAD status post stenting. On 08/12/2020 while on intubation in ICU she developed bigeminy and troponins were elevatedwas started on Lovenox and aspirin however these have been discontinued on account of bleeding. Acute hypoxic respiratory failure Secondary to pneumonia PE ruled out with CTA Continue on ventilator support Appreciate pulmonology input Pneumonia Continue antibioticsazithromycin and cefepime and vancomycin Pulmonology following. NSTEMI Bigeminy with elevated troponin a day ago Echocardiogram shows an akinetic wall motion Started on Lovenox however discontinued account of increasing bleeding. Aspirin was also discontinued Cardiology following. Bleeding Patient bleeding from right groin femoral access Also bleeding noted from mouth She does not appear to be coagulopathic however Hold Lovenox and monitor. GI consulted and EGD performed. Negative findings for oral bleeding. ENT consulted. Exam revealed no specific source of the oral bleeding. Oral bleeding stopped on 08/14/2020. Right lower limb fracture Status post ORIF We will consult orthopedics once stable History of CVA Continue monitoring Carotid artery disease Status post stenting Awaiting transfer of information CODE STATUSto be discussed. VTE prophylaxisSCD on account of bleeding
[2020-08-15] MEDS: Cefepime 2 GM in Sodium Chloride 0.9% 100 ML IVPB SCH ×2 (01:04→14:37)
[2020-08-15] MEDS: methylPREDNISolone Sod Succ 40 MG VIAL IVP SCH ×3 (05:23→18:08)
[2020-08-15] MEDS: fentaNYL Citrate/PF 2,000 MCG in Sodium Chloride 0.9% 60 ML IV SCH ×2 (05:23→21:54)
[2020-08-15] MEDS: Propofol 1,000 MG/100 ML VIAL IV PRN ×3 (05:34→21:56)
[2020-08-15 05:37] LABS: Band 8 % (5-11); Hemoglobin 8.4 g/dL (12.0-16.0); Lymphocytes 6 % (21-51); MDiff Complete? YES; Mean Corpuscular HGB CONC 32.8 g/dL (32.0-36.0); Mean Corpuscular Volume 94.7 fL (78.0-98.0); Monocytes 5 % (0-10); Neutrophil 81 % (42-75); Platelet Count 249 thou/uL (130-400); Platelet Morphology Comment Appears Adequate; RBC Distribution Width 12.4 % (11.5-14.5); Red Blood Cell (RBC) Count 2.71 mill/uL (4.20-5.40)
[2020-08-15 05:41] LABS: ALT (SGPT) 7 U/L (8-55); AST (SGOT) 10 U/L (5-34); Albumin 2.9 g/dL (3.4-4.8); Alkaline Phosphatase 83 U/L (40-110); Anion Gap 12 mmol/L (10-20); BUN (Urea Nitrogen) 28 mg/dL (9.8-20.1); Bilirubin, Total 0.2 mg/dL (0.2-1.2); Calc. Creatinine Clearance 83 mL/min (70-130); Calcium 8.4 mg/dL (7.8-10.44); Carbon Dioxide 26 mmol/L (23-31); Chloride 108 mmol/L (98-107); Globulin 2.7 g/dL (2.4-3.5); Glucose 147 mg/dL (80-115); Potassium 4.1 mmol/L (3.5-5.1); Protein, Total 5.6 g/dL (6.0-8.3); Sodium 142 mmol/L (136-145)
[2020-08-15 06:56] LABS: Actual Bicarbonate (HCO3a) 25.7 mEq/L (22-28); Base Excess (BEa) 1.2 mEq/L (-2.0 to +3.0); CO2 Tension 40.3 mmHg (35.0-45.0); Calcium, Ionized (arterial) 1.25 mmol/L (1.12-1.30); Carboxyhemoglobin (COHb) 0.2 gm% (0.0-3.0); Hemoglobin (Hb) 8.4 g/dL (12.0-16.0); O2 Tension (PaO2), arterial 70.6 mmHg (> 80.0); pH, Arterial 7.42 (7.35-7.45)
[2020-08-15 07:39] LABS: ALV-art Gradient 92.925 mmHg (0-20); Puncture Site RRA
--- NOTE | 2020-08-15 08:52 | RAD ---
PORTABLE CHEST: Date: 08/15/2020 HISTORY: Respiratory distress. COMPARISON: Prior day's exam. FINDINGS: Endotracheal and NG tubes are in satisfactory position. The right mid lung field changes are stable a s compared to the prior study. Some retrocardiac parenchymal changes also appear unchanged. IMPRESSION: Essentially stable exam. POS: AH
[2020-08-15] MEDS: Famotidine/PF 20 mg/2ml Vial SLOW IVP SCH ×2 (09:37→21:55)
--- NOTE | 2020-08-15 09:39 | PRG ---
DATE OF SERVICE: 08/15/2020 SUBJECTIVE: Nicky Young remains mechanically ventilated. She is sedated. Her hemodynamics have been stable. OBJECTIVE: LUNGS: Distant and clear with end-expiratory wheezes. HEART: Regular rhythm. ABDOMEN: Soft. EXTREMITIES: Without asymmetry. She does have 1+ edema. Labs have been reviewed. X-rays have been reviewed. IMPRESSION: 1. Respiratory failure associated with pneumonia and probable chronic obstructive pulmonary disease exacerbation. 2. Anemia of chronic disease. 3. History of extremely heavy alcohol use. PLAN: We will continue supportive care, slow weaning. Critical care time was 30 min. Job ID: [id number] MTDD
[2020-08-15] MEDS: Sodium Chloride 0.9% 1,000 ML IV SCH ×2 (14:09→17:10)
--- NOTE | 2020-08-15 17:42 | PDOC.HOSPP ---
- Subjective Encounter Date: 08/15/20 non-verbal - Objective Vital Signs & Weight: Vital Signs (12 hours) Temp Pulse Resp Pulse Ox 08/15/20 16:00 12 08/15/20 14:00 98.1 F 13 08/15/20 13:15 75 08/15/20 12:00 12 08/15/20 10:19 70 08/15/20 10:00 12 08/15/20 08:00 11 L 97 08/15/20 07:40 66 08/15/20 07:00 98.6 F 08/15/20 06:00 14 Weight Admit Weight 128 lb Weight 132 lb 7.965 oz Most Recent Monitor Data Heart Rate from ECG 70 NIBP 101/58 NIBP BP-Mean 72 Respiration from ECG 12 SpO2 96 I&O: 08/14/20 08/15/20 08/16/20 06:59 06:59 06:59 Intake Total 3356 2561.7 90 Output Total 1755 865 460 Balance 1601 1696.7 -370 Result Diagrams: 08/15/20 04:16 08/15/20 04:16 Additional Labs: Accuchecks 08/14/20 23:49 POC Glucose 102 H Hospitalist ROS - Medication Medications: Active Medications Generic Name Dose Route Start Last Admin Trade Name Freq PRN Reason Stop Dose Admin Albuterol/Ipratropium 3 ml 08/12/20 19:00 08/15/20 13:15 Ipratropium/Albuterol Sulfate 3 Ml Neb NEB 3 ml [id number] MARCUS Administration Famotidine 20 mg 08/13/20 21:00 08/15/20 09:37 Famotidine/Pf 20 Mg/2ml Vial SLOW IVP 20 mg BID MARCUS Administration Fentanyl Citrate 2,000 mcg/ 100 mls @ 0 mls/hr 08/12/20 01:15 08/15/20 05:23 Sodium Chloride IV 09/11/20 01:15 100 mls INF MARCUS Administration Protocol Per Protocol Cefepime HCl 2 gm/ Sodium 100 mls @ 200 mls/hr 08/12/20 14:00 08/15/20 14:37 Chloride IVPB 100 mls 0200,1400 MARCUS Administration Sodium Chloride 1,000 mls @ 75 mls/hr 08/12/20 01:30 08/15/20 17:10 Normal Saline 0.9% IV 1,000 mls .[id number] MARCUS Administration Norepinephrine Bitartrate 250 mls @ 0 mls/hr 08/12/20 09:45 08/13/20 17:56 Levophed IVPB 250 mls INF MARCUS Administration Protocol Titrate Lorazepam 2 mg 08/12/20 01:45 08/13/20 11:02 Lorazepam 2 Mg/Ml Vial SLOW IVP 09/11/20 01:45 2 mg Q1H PRN Administration Breakthrough agitation Methylprednisolone Sodium Succinate 40 mg 08/12/20 06:00 08/15/20 12:38 Methylprednisolone Sod Succ 40 Mg Vial IVP 40 mg Q6HR MARCUS Administration Propofol 1,000 mg 08/12/20 01:45 08/15/20 14:37 Propofol 1,000 Mg/100 Ml Vial IV 09/11/20 01:45 1,000 mg INF PRN Administration TO ACHIEVE GOAL RASS Protocol - Exam General Appearance: NAD General - other findings: Intubated and sedated Heart: RRR, no murmur, no gallops, no rubs, normal peripheral pulses Respiratory: CTAB, no wheezes, no rales, no ronchi, normal chest expansion, no tachypnea, normal percussion Gastrointestinal: soft, non-distended, normal bowel sounds, no palpable masses Extremities: no cyanosis, no clubbing, no edema Extremities - other findings: Right knee brace Skin: normal turgor Hosp A/P (1) Acute respiratory failure with hypoxia Code(s): J96.01 - ACUTE RESPIRATORY FAILURE WITH HYPOXIA Status: Acute (2) Oral bleeding Code(s): K13.79 - OTHER LESIONS OF ORAL MUCOSA Status: Acute (3) Tibial plateau fracture, right Code(s): S82.141A - DISPLACED BICONDYLAR FRACTURE OF RIGHT TIBIA, INIT Status: Acute (4) NSTEMI (non-ST elevated myocardial infarction) Code(s): I21.4 - NON-ST ELEVATION (NSTEMI) MYOCARDIAL INFARCTION Status: Acute (5) Carotid stenosis Code(s): I65.29 - OCCLUSION AND STENOSIS OF UNSPECIFIED CAROTID ARTERY Status: Acute (6) History of CVA (cerebrovascular accident) Code(s): Z86.73 - PRSNL HX OF TIA (TIA), AND CEREB INFRC W/O RESID DEFICITS Status: Acute (7) Pneumonia Code(s): J18.9 - PNEUMONIA, UNSPECIFIED ORGANISM Status: Acute (8) Coagulopathy Status: Acute - Plan This is a 60-year-old female patient recent admission on account of right lower limb fracture status post surgery, presents with worsening shortness of breath and admitted for severe pneumonia required intubation. She also has a history of CVA and CAD status post stenting. On 08/12/2020 while on intubation in ICU she developed bigeminy and troponins were elevatedwas started on Lovenox and aspirin however these have been discontinued on account of bleeding. Acute hypoxic respiratory failure Secondary to pneumonia PE ruled out with CTA Continue on ventilator support Appreciate pulmonology input Pneumonia Continue antibioticsazithromycin, cefepime and vancomycin Pulmonology following. NSTEMI Bigeminy with elevated troponin Echocardiogram shows an akinetic wall motion Started on Lovenox however discontinued due to increasing bleeding. Aspirin was also discontinued Cardiology following. Bleeding Patient bleeding from right groin femoral access Also bleeding noted from mouth She does not appear to be coagulopathic however Hold Lovenox and monitor. GI consulted and EGD performed. Negative findings for oral bleeding. ENT consulted. Exam revealed no specific source of the oral bleeding. Oral bleeding stopped on 08/14/2020. Right lower limb fracture Status post ORIF We will consult orthopedics once stable History of CVA Continue monitoring Carotid artery disease Status post stenting Awaiting transfer of information CODE STATUSto be discussed. VTE prophylaxisSCD on account of bleeding
[2020-08-15] MEDS: Atorvastatin Calcium 40 MG TAB PER TUBE SCH (21:55)
[2020-08-16] MEDS: Sodium Chloride 0.9% 1,000 ML IV SCH ×3 (00:23→20:39)
[2020-08-16] MEDS: methylPREDNISolone Sod Succ 40 MG VIAL IVP SCH ×4 (00:26→23:47)
[2020-08-16] MEDS: Propofol 1,000 MG/100 ML VIAL IV PRN (00:26)
[2020-08-16] MEDS: Cefepime 2 GM in Sodium Chloride 0.9% 100 ML IVPB SCH ×2 (01:34→14:34)
[2020-08-16 05:46] LABS: ALT (SGPT) 8 U/L (8-55); AST (SGOT) 18 U/L (5-34); Albumin 2.8 g/dL (3.4-4.8); Alkaline Phosphatase 157 U/L (40-110); Anion Gap 9 mmol/L (10-20); BUN (Urea Nitrogen) 30 mg/dL (9.8-20.1); Bilirubin, Total Less than 0.2 mg/dL (0.2-1.2); Calc. Creatinine Clearance 90 mL/min (70-130); Calcium 8.3 mg/dL (7.8-10.44); Carbon Dioxide 28 mmol/L (23-31); Chloride 105 mmol/L (98-107); Globulin 3.2 g/dL (2.4-3.5); Glucose 152 mg/dL (80-115); Potassium 4.4 mmol/L (3.5-5.1); Sodium 138 mmol/L (136-145)
[2020-08-16 06:03] LABS: Band 3 % (5-11); Hemoglobin 7.9 g/dL (12.0-16.0); Hypochromia SLIGHT = 6-15 cells (100X) (0-5/hpf); Lymphocytes 4 % (21-51); MDiff Complete? YES; Mean Corpuscular HGB CONC 31.9 g/dL (32.0-36.0); Mean Corpuscular Hemoglobin 30.3 pg (27.0-31.0); Mean Corpuscular Volume 94.9 fL (78.0-98.0); Mean Platelet Volume 8.7 fL (7.4-10.4); Metamyelocyte 3 % (0-0); Monocytes 22 % (0-10); Neutrophil 68 % (42-75); Platelet Count 237 thou/uL (130-400); Platelet Morphology Comment Appears Adequate; RBC Distribution Width 12.1 % (11.5-14.5); Red Blood Cell (RBC) Count 2.59 mill/uL (4.20-5.40)
[2020-08-16 06:51] LABS: Actual Bicarbonate (HCO3a) 27.4 mEq/L (22-28); Base Excess (BEa) 2.9 mEq/L (-2.0 to +3.0); CO2 Tension 41.7 mmHg (35.0-45.0); Calcium, Ionized (arterial) 1.22 mmol/L (1.12-1.30); Carboxyhemoglobin (COHb) 0.6 gm% (0.0-3.0); Hemoglobin (Hb) 7.4 g/dL (12.0-16.0); O2 Tension (PaO2), arterial 80.4 mmHg (> 80.0); Potassium - ABG Lab 4.28 mmol/L (3.70-5.30); pH, Arterial 7.44 (7.35-7.45)
[2020-08-16 07:41] LABS: Puncture Site RBA
[2020-08-16 07:42] LABS: ALV-art Gradient 81.375 mmHg (0-20)
[2020-08-16] MEDS: Famotidine/PF 20 mg/2ml Vial SLOW IVP SCH ×2 (08:18→20:33)
--- NOTE | 2020-08-16 08:49 | RAD ---
PORTABLE CHEST 1 VIEW: Date: 08/16/2020 Time: 0549 hours HISTORY: Respiratory failure. FINDINGS/IMPRESSION: Comparison made with exam of previous day. Endotracheal and nasogastric tubes remain in place. Opacity in the right mid lung is stable. No pneum othoraces are seen. A small left pleural effusion is noted. POS: OFF
--- NOTE | 2020-08-16 15:06 | PDOC.HOSPP ---
- Subjective Encounter Date: 08/16/20 Subjective: Patient is extubated. She appears generally confused and continues to say help me. She tends to understand a little bit of my explanation to her as to what has been happening with her but then again just goes back to saying "help me". - Objective Vital Signs & Weight: Vital Signs (12 hours) Temp Pulse Resp Pulse Ox 08/16/20 13:15 88 19 100 08/16/20 11:15 100 08/16/20 08:00 98.5 F 17 08/16/20 07:42 88 08/16/20 07:40 85 15 100 08/16/20 07:22 100 08/16/20 06:00 12 08/16/20 04:00 98.4 F 14 Weight Admit Weight 128 lb Weight 133 lb 13.129 oz Most Recent Monitor Data Heart Rate from ECG 96 NIBP 122/62 NIBP BP-Mean 82 Respiration from ECG 17 SpO2 93 I&O: 08/15/20 08/16/20 08/17/20 06:59 06:59 06:59 Intake Total 2561.7 2424.7 Output Total 865 1037 450 Balance 1696.7 1387.7 -450 Result Diagrams: 08/16/20 04:07 08/16/20 04:07 Hospitalist ROS - Medication Medications: Active Medications Generic Name Dose Route Start Last Admin Trade Name Freq PRN Reason Stop Dose Admin Albuterol/Ipratropium 3 ml 08/12/20 19:00 08/16/20 13:15 Ipratropium/Albuterol Sulfate 3 Ml Neb NEB 3 ml [id number] MARCUS Administration Atorvastatin Calcium 40 mg 08/15/20 21:00 08/15/20 21:55 Atorvastatin Calcium 40 Mg Tab PER TUBE 40 mg HS MARCUS Administration Famotidine 20 mg 08/13/20 21:00 08/16/20 08:18 Famotidine/Pf 20 Mg/2ml Vial SLOW IVP 20 mg BID MARCUS Administration Fentanyl Citrate 2,000 mcg/ 100 mls @ 0 mls/hr 08/12/20 01:15 08/15/20 21:54 Sodium Chloride IV 09/11/20 01:15 100 mls INF MARCUS Administration Protocol Per Protocol Cefepime HCl 2 gm/ Sodium 100 mls @ 200 mls/hr 08/12/20 14:00 08/16/20 14:34 Chloride IVPB 100 mls 0200,1400 MARCUS Administration Sodium Chloride 1,000 mls @ 75 mls/hr 08/12/20 01:30 08/16/20 12:23 Normal Saline 0.9% IV Not Given .[id number] MARCUS Norepinephrine Bitartrate 250 mls @ 0 mls/hr 08/12/20 09:45 08/13/20 17:56 Levophed IVPB 250 mls INF MARCUS Administration Protocol Titrate Dexmedetomidine HCl 400 mcg/ 100 mls @ 0 mls/hr 08/16/20 12:00 08/16/20 12:11 Sodium Chloride IVPB 100 mls INF MARCUS Administration Protocol Titrate Lorazepam 2 mg 08/12/20 01:45 08/13/20 11:02 Lorazepam 2 Mg/Ml Vial SLOW IVP 09/11/20 01:45 2 mg Q1H PRN Administration Breakthrough agitation Methylprednisolone Sodium Succinate 40 mg 08/12/20 06:00 08/16/20 11:12 Methylprednisolone Sod Succ 40 Mg Vial IVP 40 mg Q6HR MARCUS Administration Propofol 1,000 mg 08/12/20 01:45 08/16/20 00:26 Propofol 1,000 Mg/100 Ml Vial IV 09/11/20 01:45 1,000 mg INF PRN Administration TO ACHIEVE GOAL RASS Protocol - Exam General Appearance: NAD, awake alert Heart: RRR, no murmur, no gallops, no rubs, normal peripheral pulses Respiratory: CTAB, no wheezes, no rales, no ronchi, normal chest expansion Respiratory - other findings: Mild tachypnea Gastrointestinal: soft, non-tender, non-distended, normal bowel sounds, no palpable masses, no hepatomegaly, no splenomegaly, no bruit Extremities: no cyanosis, no clubbing, no edema Extremities - other findings: Right knee brace Musculoskeletal: normal tone, normal strength Psychiatric: not oriented Hosp A/P (1) Acute respiratory failure with hypoxia Code(s): J96.01 - ACUTE RESPIRATORY FAILURE WITH HYPOXIA Status: Acute (2) Oral bleeding Code(s): K13.79 - OTHER LESIONS OF ORAL MUCOSA Status: Acute (3) Tibial plateau fracture, right Code(s): S82.141A - DISPLACED BICONDYLAR FRACTURE OF RIGHT TIBIA, INIT Status: Acute (4) NSTEMI (non-ST elevated myocardial infarction) Code(s): I21.4 - NON-ST ELEVATION (NSTEMI) MYOCARDIAL INFARCTION Status: Acute (5) Carotid stenosis Code(s): I65.29 - OCCLUSION AND STENOSIS OF UNSPECIFIED CAROTID ARTERY Status: Acute (6) History of CVA (cerebrovascular accident) Code(s): Z86.73 - PRSNL HX OF TIA (TIA), AND CEREB INFRC W/O RESID DEFICITS Status: Acute (7) Pneumonia Code(s): J18.9 - PNEUMONIA, UNSPECIFIED ORGANISM Status: Acute (8) Coagulopathy Status: Acute (9) Alcohol abuse Code(s): F10.10 - ALCOHOL ABUSE, UNCOMPLICATED Status: Acute (10) Acute metabolic encephalopathy Code(s): G93.41 - METABOLIC ENCEPHALOPATHY Status: Acute - Plan This is a 60-year-old female patient recent admission on account of right lower limb fracture status post surgery, presents with worsening shortness of breath and admitted for severe pneumonia required intubation. She also has a history of CVA and CAD status post stenting. On 08/12/2020 while on intubation in ICU she developed bigeminy and troponins were elevatedwas started on Lovenox and aspirin however these have been discontinued on account of bleeding. Acute hypoxic respiratory failure Secondary to pneumonia and COPD. PE ruled out with CTA On ventilator support until extubated on 08/16/2020. Appreciate pulmonology input Pneumonia Continue antibioticsazithromycin, cefepime and vancomycin Pulmonology following. NSTEMI Bigeminy with elevated troponin Echocardiogram shows an akinetic wall Started on Lovenox, however, discontinued due to increasing bleeding. Aspirin was also discontinued Cardiology following. Bleeding Patient bleeding from right groin femoral access Also bleeding noted from mouth Appears to have mild coagulopathy. Lovenox was held. GI consulted and EGD performed. Negative findings for oral bleeding. ENT consulted. Exam revealed no specific source of the oral bleeding. Oral bleeding stopped on 08/14/2020. Lovenox resumed on 08-16-2020 following extubation. Right lower limb fracture Status post ORIF of right tibial plateau fracture. We will consider consult orthopedics once stable high risk for DVT, therefore Lovenox resumed on 08-16-2020 in spite of prior bleeding. History of CVA Continue monitoring Carotid artery disease Status post stenting at outside facility. details not known. History of drug/alcohol abuse: Thiamine and folate. Acute metabolic encephalopathy: Likely multifactorial. Could be related to some element of withdrawal. CODE STATUSto be discussed. VTE prophylaxisLovenox until it was held. Then she was placed on SCDs. Lovenox resumed on 08-16-2020.
[2020-08-16] MEDS ORDERED: Enoxaparin Sodium 40 MG/0.4 ML SYRINGE SC SCH (15:15)
[2020-08-16] MEDS: Folic Acid 1 MG TAB PO SCH ×2 (15:50→15:54)
[2020-08-16] MEDS: Thiamine 100 MG TAB PO SCH ×2 (15:50→15:54)
--- NOTE | 2020-08-16 17:05 | PRG ---
DATE OF SERVICE: 08/16/2020 SUBJECTIVE: Ms. Young has been receiving ventilatory support in CPAP mode with spontaneous volumes about 600 to 650 and good saturation on FiO2 of 30%. She follows commands and following assessment was extubated. PHYSICAL EXAMINATION: VITAL SIGNS: Blood pressure 131/76, heart rate 101, and oxygen saturation 95% following extubation. She is afebrile. GENERAL: She responds appropriately, nods her head, and answers simple questions. LUNGS: Show rhonchi, but no wheezing. HEART: Regular rate and rhythm. ABDOMEN: Soft. There is no organomegaly. EXTREMITIES: Her right lower leg is in a splint following recent tib-fib fracture. LABORATORY DATA: White count today 19,000, hemoglobin 7.9 down from 8.4 yesterday, and platelet count 237,000. Differential includes 68 segs and 3 bands. Electrolytes include sodium 138, potassium 4.4, chloride 105, CO2 is 28, BUN 30, and creatinine 0.6. Liver tests are normal except for a low albumin. Blood gas includes pH 7.44, CO2 of 41.2, bicarbonate 27, and PO2 of 84. IMPRESSION: 1. Respiratory failure secondary to pneumonia and chronic obstructive pulmonary disease. 2. History of alcohol abuse without apparent delirium tremens. 3. Status post recent right tib-fib fracture with repair. PLAN: Medically, she is stable and extubated today. We will advance post ventilator care as tolerated including swallowing assessment and initiation of therapy. She needs to remain on anticoagulant therapy due to high risk of DVT/PE due to her recent leg fracture. Critical care, 31 minutes. Job ID: [id number]
[2020-08-16] MEDS: Atorvastatin Calcium 40 MG TAB PER TUBE SCH (20:33)
[2020-08-17] MEDS: Cefepime 2 GM in Sodium Chloride 0.9% 100 ML IVPB SCH ×2 (01:44→13:06)
[2020-08-17 03:42] LABS: Band 4 % (5-11); Hemoglobin 8.7 g/dL (12.0-16.0); Lymphocytes 15 % (21-51); MDiff Complete? YES; Mean Corpuscular HGB CONC 34.6 g/dL (32.0-36.0); Mean Corpuscular Hemoglobin 31.7 pg (27.0-31.0); Mean Corpuscular Volume 91.6 fL (78.0-98.0); Metamyelocyte 2 % (0-0); Monocytes 9 % (0-10); Neutrophil 70 % (42-75); Platelet Count 230 thou/uL (130-400); Platelet Morphology Comment Appears Adequate; RBC Distribution Width 11.9 % (11.5-14.5); Red Blood Cell (RBC) Count 2.76 mill/uL (4.20-5.40)
[2020-08-17 04:10] LABS: ALT (SGPT) 9 U/L (8-55); AST (SGOT) 14 U/L (5-34); Alkaline Phosphatase 80 U/L (40-110); Anion Gap 14 mmol/L (10-20); BUN (Urea Nitrogen) 21 mg/dL (9.8-20.1); Bilirubin, Total 0.4 mg/dL (0.2-1.2); Calc. Creatinine Clearance 95 mL/min (70-130); Calcium 8.1 mg/dL (7.8-10.44); Carbon Dioxide 25 mmol/L (23-31); Chloride 101 mmol/L (98-107); Globulin 2.6 g/dL (2.4-3.5); Glucose 106 mg/dL (80-115); Potassium 3.7 mmol/L (3.5-5.1); Protein, Total 5.6 g/dL (6.0-8.3); Sodium 136 mmol/L (136-145)
[2020-08-17] MEDS: methylPREDNISolone Sod Succ 40 MG VIAL IVP SCH ×5 (06:57→23:33)
[2020-08-17] MEDS: Thiamine 100 MG TAB PO SCH (08:30)
[2020-08-17] MEDS: Enoxaparin Sodium 40 MG/0.4 ML SYRINGE SC SCH (08:30)
[2020-08-17] MEDS: Famotidine/PF 20 mg/2ml Vial SLOW IVP SCH ×2 (08:30→20:44)
[2020-08-17] MEDS: Folic Acid 1 MG TAB PO SCH (08:30)
--- NOTE | 2020-08-17 09:53 | RAD ---
PORTABLE CHEST 1 VIEW: Date: 08/17/2020 Time: 0452 hours HISTORY: Respiratory distress. FINDINGS/IMPRESSION: There has been interval removal of the endotracheal and nasogastric tubes since the previous day's ex am. Opacity in the right mid lung is stable. Small pleural effusions cannot be excluded. No pneumotho races are seen. POS: OFF
--- NOTE | 2020-08-17 12:54 | PRG ---
DATE OF SERVICE: 08/17/2020 SUBJECTIVE: She has been successfully extubated without difficulty yesterday. She is answering a few questions, but still not extremely verbal. OBJECTIVE: VITAL SIGNS: Blood pressure is 126/82, heart rate is 89, respiratory rate 17, and saturation 100%. GENERAL: She is receiving intermittent Precedex. LUNGS: Show rhonchi. HEART: Regular rate and rhythm. There is no audible murmur. ABDOMEN: Soft. There is no organomegaly. EXTREMITIES: She has no edema. The right leg is in a splint from subacute tib-fib fracture. LABORATORY DATA: White count today 25,000, hemoglobin is 8.7 with hematocrit 25.2. Chemistries include sodium 136, potassium 3.7, chloride 101, CO2 is 25, BUN 21, and creatinine 0.6. Chest x-ray today is interpreted by me is demonstrating area of rounded consolidation versus mass in the superior right hilum. There is no effusion or pneumothorax. When compared to earlier films from this admission, the density is unchanged. It is new compared to a month ago, which emphasis the likelihood of consolidation rather than malignancy. IMPRESSION: 1. Pneumonia with sepsis and respiratory failure, requiring temporary ventilation, now extubated. 2. Recent right tib-fib fracture. PLAN: We will continue current medicines including anticoagulation and antibiotics. I would like to think that we can get her off Precedex. She should be able to transfer out of the ICU to the intermediate care unit or the floor in the next 24 hours. Job ID: [id number]
[2020-08-17] MEDS: Sodium Chloride 0.9% 1,000 ML IV SCH (14:17)
--- NOTE | 2020-08-17 14:57 | PDOC.HOSPP ---
- Subjective Encounter Date: 08/17/20 Subjective: Patient indicates she is feeling okay today. Denies any specific concerns or needs. - Objective Vital Signs & Weight: Vital Signs (12 hours) Temp Pulse Ox 08/17/20 12:00 98.0 F 08/17/20 08:00 98.3 F 08/17/20 07:16 98 08/17/20 04:00 99 F Weight Admit Weight 128 lb Weight 2.123 oz Most Recent Monitor Data Heart Rate from ECG 96 NIBP 133/80 NIBP BP-Mean 97 Respiration from ECG 22 SpO2 96 I&O: 08/16/20 08/17/20 08/18/20 06:59 06:59 06:59 Intake Total 2424.7 2402.9 Output Total 1037 1905 2065 Balance 1387.7 497.9 -2065 Result Diagrams: 08/17/20 03:19 08/17/20 03:19 Hospitalist ROS - Medication Medications: Active Medications Generic Name Dose Route Start Last Admin Trade Name Freq PRN Reason Stop Dose Admin Albuterol/Ipratropium 3 ml 08/12/20 19:00 08/17/20 14:03 Ipratropium/Albuterol Sulfate 3 Ml Neb NEB Not Given [id number] MARCUS Atorvastatin Calcium 40 mg 08/15/20 21:00 08/16/20 20:33 Atorvastatin Calcium 40 Mg Tab PER TUBE 40 mg HS MARCUS Administration Enoxaparin Sodium 40 mg 08/17/20 09:00 08/17/20 08:30 Enoxaparin Sodium 40 Mg/0.4 Ml Syringe SC 40 mg 0900 MARCUS Administration Famotidine 20 mg 08/13/20 21:00 08/17/20 08:30 Famotidine/Pf 20 Mg/2ml Vial SLOW IVP 20 mg BID MARCUS Administration Folic Acid 1 mg 08/17/20 09:00 08/17/20 08:30 Folic Acid 1 Mg Tab PO 1 mg DAILY MARCUS Administration Fentanyl Citrate 2,000 mcg/ 100 mls @ 0 mls/hr 08/12/20 01:15 08/15/20 21:54 Sodium Chloride IV 09/11/20 01:15 100 mls INF MARCUS Administration Protocol Per Protocol Cefepime HCl 2 gm/ Sodium 100 mls @ 200 mls/hr 08/12/20 14:00 08/17/20 13:06 Chloride IVPB 100 mls 0200,1400 MARCUS Administration Sodium Chloride 1,000 mls @ 75 mls/hr 08/12/20 01:30 08/17/20 14:17 Normal Saline 0.9% IV Not Given .[id number] MARCUS Norepinephrine Bitartrate 250 mls @ 0 mls/hr 08/12/20 09:45 08/13/20 17:56 Levophed IVPB 250 mls INF MARCUS Administration Protocol Titrate Dexmedetomidine HCl 400 mcg/ 100 mls @ 0 mls/hr 08/16/20 12:00 08/16/20 12:11 Sodium Chloride IVPB 100 mls INF MARCUS Administration Protocol Titrate Lorazepam 2 mg 08/12/20 01:45 08/13/20 11:02 Lorazepam 2 Mg/Ml Vial SLOW IVP 09/11/20 01:45 2 mg Q1H PRN Administration Breakthrough agitation Methylprednisolone Sodium Succinate 40 mg 08/12/20 06:00 08/17/20 11:56 Methylprednisolone Sod Succ 40 Mg Vial IVP 40 mg Q6HR MARCUS Administration Propofol 1,000 mg 08/12/20 01:45 08/16/20 00:26 Propofol 1,000 Mg/100 Ml Vial IV 09/11/20 01:45 1,000 mg INF PRN Administration TO ACHIEVE GOAL RASS Protocol Thiamine HCl 100 mg 08/17/20 09:00 08/17/20 08:30 Thiamine 100 Mg Tab PO 100 mg DAILY MARCUS Administration - Exam General Appearance: NAD, awake alert Heart: RRR, no murmur, no gallops, no rubs, normal peripheral pulses Respiratory: CTAB, no wheezes, no rales, no ronchi, normal chest expansion, no tachypnea Respiratory - other findings: Diminished Gastrointestinal: soft, non-tender, non-distended, normal bowel sounds, no palpable masses, no hepatomegaly, no splenomegaly, no bruit Extremities: no cyanosis, no clubbing, no edema Skin: normal turgor Neurological: no focal deficits Musculoskeletal: generalized weakness Psychiatric: normal affect, normal behavior, oriented to person, oriented to time (2-month) Psychiatric - other findings: Patient stated she was in a medical supply store Hosp A/P (1) Acute respiratory failure with hypoxia Code(s): J96.01 - ACUTE RESPIRATORY FAILURE WITH HYPOXIA Status: Acute (2) Oral bleeding Code(s): K13.79 - OTHER LESIONS OF ORAL MUCOSA Status: Acute (3) Tibial plateau fracture, right Code(s): S82.141A - DISPLACED BICONDYLAR FRACTURE OF RIGHT TIBIA, INIT Status: Acute (4) NSTEMI (non-ST elevated myocardial infarction) Code(s): I21.4 - NON-ST ELEVATION (NSTEMI) MYOCARDIAL INFARCTION Status: Acute (5) Carotid stenosis Code(s): I65.29 - OCCLUSION AND STENOSIS OF UNSPECIFIED CAROTID ARTERY Status: Acute (6) History of CVA (cerebrovascular accident) Code(s): Z86.73 - PRSNL HX OF TIA (TIA), AND CEREB INFRC W/O RESID DEFICITS Status: Acute (7) Pneumonia Code(s): J18.9 - PNEUMONIA, UNSPECIFIED ORGANISM Status: Acute (8) Coagulopathy Status: Acute (9) Alcohol abuse Code(s): F10.10 - ALCOHOL ABUSE, UNCOMPLICATED Status: Acute (10) Acute metabolic encephalopathy Code(s): G93.41 - METABOLIC ENCEPHALOPATHY Status: Acute - Plan This is a 60-year-old female patient recent admission on account of right lower limb fracture status post surgery, presents with worsening shortness of breath and admitted for severe pneumonia required intubation. She also has a history of CVA and CAD status post stenting. On 08/12/2020 while on intubation in ICU she developed bigeminy and troponins were elevatedwas started on Lovenox and aspirin however these have been discontinued on account of bleeding. Acute hypoxic respiratory failure Secondary to pneumonia and COPD. PE ruled out with CTA On ventilator support until extubated on 08/16/2020. Effectively wean down subsequent to extubation. Appreciate pulmonology input Pneumonia Continue antibiotics Deescalated to cefepime Pulmonology following. NSTEMI Bigeminy with elevated troponin Echocardiogram shows an akinetic wall Started on Lovenox, however, discontinued due to increasing bleeding. Resumed on 08/16/2020. Aspirin was also discontinued due to bleeding. With no signs of bleeding with resumption of the Lovenox will be resumed on 08/18/2020. Cardiology following. Bleeding Patient bleeding from right groin femoral access Also bleeding noted from mouth Appears to have mild coagulopathy. Lovenox was held. GI consulted and EGD performed. Negative findings for oral bleeding. ENT consulted. Exam revealed no specific source of the oral bleeding. Oral bleeding stopped on 08/14/2020. Lovenox resumed on 08-16-2020 following extubation. Right lower limb fracture Status post ORIF of right tibial plateau fracture. We will consider consult orthopedics once stable high risk for DVT, therefore Lovenox resumed on 08-16-2020 in spite of prior bleeding. History of CVA Continue monitoring Carotid artery disease Status post stenting at outside facility. details not known. History of drug/alcohol abuse: Thiamine and folate. Acute metabolic encephalopathy: Likely multifactorial. Could be related to some element of withdrawal. CODE STATUSto be discussed. VTE prophylaxisLovenox until it was held. Then she was placed on SCDs. Lovenox resumed on 08-16-2020.
[2020-08-17] MEDS: Atorvastatin Calcium 40 MG TAB PER TUBE SCH (20:44)
[2020-08-18] MEDS: Cefepime 2 GM in Sodium Chloride 0.9% 100 ML IVPB SCH ×2 (02:57→13:37)
[2020-08-18 03:39] LABS: ALT (SGPT) 15 U/L (8-55); AST (SGOT) 17 U/L (5-34); Albumin 3.1 g/dL (3.4-4.8); Alkaline Phosphatase 85 U/L (40-110); Anion Gap 18 mmol/L (10-20); BUN (Urea Nitrogen) 19 mg/dL (9.8-20.1); Bilirubin, Total 0.5 mg/dL (0.2-1.2); Calc. Creatinine Clearance 0 mL/min (70-130); Calcium 8.3 mg/dL (7.8-10.44); Carbon Dioxide 23 mmol/L (23-31); Chloride 97 mmol/L (98-107); Globulin 2.8 g/dL (2.4-3.5); Glucose 98 mg/dL (80-115); Potassium 3.5 mmol/L (3.5-5.1); Protein, Total 5.9 g/dL (6.0-8.3); Sodium 134 mmol/L (136-145)
[2020-08-18 04:02] LABS: Band 3 % (5-11); Hemoglobin 10.2 g/dL (12.0-16.0); Hypochromia SLIGHT = 6-15 cells (100X) (0-5/hpf); Lymphocytes 13 % (21-51); MDiff Complete? YES; Mean Corpuscular HGB CONC 33.8 g/dL (32.0-36.0); Mean Corpuscular Hemoglobin 31.4 pg (27.0-31.0); Mean Corpuscular Volume 92.8 fL (78.0-98.0); Mean Platelet Volume 9.1 fL (7.4-10.4); Monocytes 17 % (0-10); Neutrophil 67 % (42-75); Platelet Count 229 thou/uL (130-400); Platelet Morphology Comment Appears Adequate; RBC Distribution Width 12.2 % (11.5-14.5); Red Blood Cell (RBC) Count 3.24 mill/uL (4.20-5.40); White Blood Cell (WBC) Count 23.5 thou/uL (4.8-10.8)
[2020-08-18] MEDS: Sodium Chloride 0.9% 1,000 ML IV SCH (04:18)
[2020-08-18] MEDS: methylPREDNISolone Sod Succ 40 MG VIAL IVP SCH ×2 (06:20→20:46)
[2020-08-18] MEDS ORDERED: Clopidogrel Bisulfate 300 MG TAB PO SCH (07:45)
[2020-08-18] MEDS: Potassium Chloride 20 MEQ in Premix Bag 1 BAG IVPB SCH (07:46)
--- NOTE | 2020-08-18 08:10 | RAD ---
XR Chest 1 View Portable History: Ventilated patient Comparison: Radiograph prior day Findings: Lungs are clear. No pneumothorax or effusion. Cardiac silhouette and mediastinal contours a re within normal limits. Mild midthoracic spine degenerative changes. Mild vascular calcifications. Impression: No acute intrathoracic abnormality. The previous noted right perihilar opacity is not wel l delineated.
[2020-08-18] MEDS: Famotidine/PF 20 mg/2ml Vial SLOW IVP SCH ×2 (08:37→20:46)
[2020-08-18] MEDS: Folic Acid 1 MG TAB PO SCH (08:37)
[2020-08-18] MEDS: Thiamine 100 MG TAB PO SCH (08:37)
[2020-08-18] MEDS: Aspirin 81 mg Enteric Coated Tablet PO SCH (08:37)
[2020-08-18] MEDS: Enoxaparin Sodium 40 MG/0.4 ML SYRINGE SC SCH (08:37)
[2020-08-18] MEDS ORDERED: Potassium Chloride 20 MEQ TAB PO SCH (10:30)
--- NOTE | 2020-08-18 11:20 | PRG ---
DATE OF SERVICE: 08/18/2020 SUBJECTIVE: The patient is feeling very well. She has been extubated for couple of days now. She is off the Precedex. OBJECTIVE: VITAL SIGNS: Temperature 98.3, pulse 86, blood pressure 119/82, O2 saturation 97%. HEENT: Unremarkable. NECK: No adenopathy or JVD. LUNGS: Clear. CARDIAC: S1 and S2. Regular. ABDOMEN: Soft. EXTREMITIES: No edema. IMAGING: Her x-ray is clear. LABORATORY DATA: White blood cell count 23.5, hematocrit 30, platelet count 229. Sodium 134, potassium 3.5, chloride 97, CO2 of 23, BUN 19, creatinine 0.6, glucose 98. ASSESSMENT: 1. Pneumonia with sepsis. 2. Recent right-sided rib fracture. 3. Recent respiratory failure requiring mechanical ventilation. PLAN: 1. Transfer to telemetry. 2. Continue antibiotics. 3. Reduce steroid doses that may be affecting her white blood cell count. Job ID: [id number]
--- NOTE | 2020-08-18 16:52 | PDOC.HOSPP ---
- Subjective Encounter Date: 08/18/20 Subjective: Says she feels well. Denies any specific problems. - Objective Vital Signs & Weight: Vital Signs (12 hours) Temp Pulse Resp Pulse Ox 08/18/20 16:00 98.8 F 08/18/20 13:55 100 18 96 08/18/20 12:00 98.5 F 08/18/20 08:10 93 L 08/18/20 08:09 83 24 H 93 L 08/18/20 07:26 97 08/18/20 07:00 98.3 F Weight Admit Weight 128 lb Weight 126 lb 5.198 oz Most Recent Monitor Data Heart Rate from ECG 96 NIBP 128/83 NIBP BP-Mean 98 Respiration from ECG 21 SpO2 98 I&O: 08/17/20 08/18/20 08/19/20 06:59 06:59 06:59 Intake Total 2402.9 2096.8 781.8 Output Total 1905 4905 295 Balance 497.9 -2808.2 486.8 Result Diagrams: 08/18/20 03:01 08/18/20 03:01 Hospitalist ROS - Medication Medications: Active Medications Generic Name Dose Route Start Last Admin Trade Name Freq PRN Reason Stop Dose Admin Albuterol/Ipratropium 3 ml 08/12/20 19:00 08/18/20 13:55 Ipratropium/Albuterol Sulfate 3 Ml Neb NEB 3 ml [id number] MARCUS Administration Aspirin 81 mg 08/18/20 09:00 08/18/20 08:37 Aspirin 81 Mg Enteric Coated Tablet PO 81 mg DAILY MARCUS Administration Atorvastatin Calcium 40 mg 08/15/20 21:00 08/17/20 20:44 Atorvastatin Calcium 40 Mg Tab PER TUBE 40 mg HS MARCUS Administration Enoxaparin Sodium 40 mg 08/17/20 09:00 08/18/20 08:37 Enoxaparin Sodium 40 Mg/0.4 Ml Syringe SC 40 mg 0900 MARCUS Administration Famotidine 20 mg 08/13/20 21:00 08/18/20 08:37 Famotidine/Pf 20 Mg/2ml Vial SLOW IVP 20 mg BID MARCUS Administration Folic Acid 1 mg 08/17/20 09:00 08/18/20 08:37 Folic Acid 1 Mg Tab PO 1 mg DAILY MARCUS Administration Cefepime HCl 2 gm/ Sodium 100 mls @ 200 mls/hr 08/12/20 14:00 08/18/20 13:37 Chloride IVPB 100 mls 0200,1400 MARCUS Administration Sodium Chloride 10 ml 08/18/20 09:00 08/18/20 10:57 Flush - Normal Saline 10 Ml Syringe IVF 10 ml Q12HR MARCUS Administration Thiamine HCl 100 mg 08/17/20 09:00 08/18/20 08:37 Thiamine 100 Mg Tab PO 100 mg DAILY MARCUS Administration - Exam General Appearance: NAD, awake alert General - other findings: Appears as though she may have had fecal incontinence in the bed Heart: RRR, no murmur, no gallops, no rubs, normal peripheral pulses Respiratory: CTAB, no wheezes, no rales, no ronchi, normal chest expansion, no tachypnea, normal percussion Gastrointestinal: soft, non-tender, non-distended, normal bowel sounds, no palpable masses, no hepatomegaly, no splenomegaly, no bruit Extremities: no cyanosis, no clubbing, no edema Musculoskeletal: normal tone Psychiatric: normal affect Psychiatric - other findings: She does know she is at [facility] today. Hosp A/P (1) Acute respiratory failure with hypoxia Code(s): J96.01 - ACUTE RESPIRATORY FAILURE WITH HYPOXIA Status: Acute (2) Oral bleeding Code(s): K13.79 - OTHER LESIONS OF ORAL MUCOSA Status: Acute (3) Tibial plateau fracture, right Code(s): S82.141A - DISPLACED BICONDYLAR FRACTURE OF RIGHT TIBIA, INIT Status: Acute (4) NSTEMI (non-ST elevated myocardial infarction) Code(s): I21.4 - NON-ST ELEVATION (NSTEMI) MYOCARDIAL INFARCTION Status: Acute (5) Carotid stenosis Code(s): I65.29 - OCCLUSION AND STENOSIS OF UNSPECIFIED CAROTID ARTERY Status: Acute (6) History of CVA (cerebrovascular accident) Code(s): Z86.73 - PRSNL HX OF TIA (TIA), AND CEREB INFRC W/O RESID DEFICITS Status: Acute (7) Pneumonia Code(s): J18.9 - PNEUMONIA, UNSPECIFIED ORGANISM Status: Acute (8) Coagulopathy Status: Acute (9) Alcohol abuse Code(s): F10.10 - ALCOHOL ABUSE, UNCOMPLICATED Status: Acute (10) Acute metabolic encephalopathy Code(s): G93.41 - METABOLIC ENCEPHALOPATHY Status: Acute - Plan This is a 60-year-old female patient recent admission on account of right lower limb fracture status post surgery, presents with worsening shortness of breath and admitted for severe pneumonia required intubation. She also has a history of CVA and CAD status post stenting. On 08/12/2020 while on intubation in ICU she developed bigeminy and troponins were elevatedwas started on Lovenox and aspirin however these have been discontinued on account of bleeding. Acute hypoxic respiratory failure Secondary to pneumonia and COPD. PE ruled out with CTA On ventilator support until extubated on 08/16/2020. Effectively wean down to room air subsequent to extubation. Appreciate pulmonology input Pneumonia Continue antibiotics Deescalated to cefepime Pulmonology following. NSTEMI Bigeminy with elevated troponin Echocardiogram shows an akinetic wall Started on Lovenox, however, discontinued due to increasing bleeding. Resumed Lovenox on 08/16/2020. Aspirin was also discontinued due to bleeding. With no signs of bleeding with resumption of the Lovenox will be resumed on 08/18/2020. Plavix resumed on 08/18/2020. Cardiology following. Bleeding Patient bleeding from right groin femoral access Also bleeding noted from mouth Appears to have mild coagulopathy. Lovenox was held. GI consulted and EGD performed. Negative findings for oral bleeding. ENT consulted. Exam revealed no specific source of the oral bleeding. Oral bleeding stopped on 08/14/2020. Lovenox resumed on 08-16-2020 following extubation. Right lower limb fracture Status post ORIF of right tibial plateau fracture. We will consider consult orthopedics once stable high risk for DVT, therefore Lovenox resumed on 08-16-2020 in spite of prior bleeding. Will obtain physical therapy consult on 08/18/2020 History of CVA Continue monitoring Carotid artery disease Status post stenting at outside facility. details not known. History of drug/alcohol abuse: Thiamine and folate. Acute metabolic encephalopathy: Likely multifactorial. Could be related to some element of withdrawal. CODE STATUSto be discussed. VTE prophylaxisLovenox until it was held. Then she was placed on SCDs. Lovenox resumed on 08-16-2020.
[2020-08-18] MEDS: Atorvastatin Calcium 40 MG TAB PER TUBE SCH (20:45)
[2020-08-19] MEDS: Cefepime 2 GM in Sodium Chloride 0.9% 100 ML IVPB SCH (01:41)
[2020-08-19 04:17] LABS: Anion Gap 12 mmol/L (10-20); BUN (Urea Nitrogen) 22 mg/dL (9.8-20.1); Calc. Creatinine Clearance 76 mL/min (70-130); Calcium 8.5 mg/dL (7.8-10.44); Carbon Dioxide 27 mmol/L (23-31); Chloride 99 mmol/L (98-107); Glucose 95 mg/dL (80-115); Potassium 3.8 mmol/L (3.5-5.1); Sodium 134 mmol/L (136-145)
[2020-08-19] MEDS: Potassium Chloride 20 MEQ in Premix Bag 1 BAG IVPB SCH (07:09)
--- NOTE | 2020-08-19 08:01 | PRG ---
DATE OF SERVICE: 08/19/2020 SUBJECTIVE: The patient has not slept well and is requesting sleeping pill and a nicotine patch. She is also wanting to go home, but I think she still has some issues that need to be clarified. OBJECTIVE: VITAL SIGNS: Temperature 97.9, pulse is 99, blood pressure 113/68, O2 saturation 98%. 24-hour intake 1121, output 1645. HEENT: Unremarkable. NECK: No adenopathy or JVD. LUNGS: Clear anteriorly. CARDIAC: S1, S2. Regular. ABDOMEN: Soft. EXTREMITIES: No edema. LABORATORY DATA: Sodium 134, potassium 3.8, chloride 99, CO2 of 27, BUN 22, creatinine 0.7, glucose 95. ASSESSMENT: 1. Pneumonia-resolving. 2. Right-sided rib fractures. 3. Status post respiratory failure requiring mechanical ventilation. 4. Methamphetamine abuse. PLAN: 1. She can switch over to oral antibiotics. 2. Increase activity. 3. Nicoderm patch. 4. Restoril at night as needed for sleep. 5. I think it would be safe to go ahead and stop her steroids. 6. Possible cardiac catheterization later this week per Cardiology. Job ID: [id number]
[2020-08-19] MEDS: Thiamine 100 MG TAB PO SCH (08:54)
[2020-08-19] MEDS: Aspirin 81 mg Enteric Coated Tablet PO SCH (08:54)
[2020-08-19] MEDS: Folic Acid 1 MG TAB PO SCH (08:54)
[2020-08-19] MEDS: Clopidogrel Bisulfate 75 MG TAB PO SCH (08:54)
[2020-08-19] MEDS: Cefdinir 300 MG CAP PO SCH (08:55)
[2020-08-19] MEDS: Enoxaparin Sodium 40 MG/0.4 ML SYRINGE SC SCH (08:55)
[2020-08-19] MEDS: methylPREDNISolone Sod Succ 40 MG VIAL IVP SCH (08:55)
[2020-08-19] MEDS: Famotidine/PF 20 mg/2ml Vial SLOW IVP SCH (08:55)
[2020-08-19] MEDS: Nicotine 14 MG PATCH TD SCH (08:56)
[2020-08-19] MEDS: Temazepam 15 MG CAP PO PRN ×2 (09:59→20:59)
--- NOTE | 2020-08-19 13:53 | CT ---
CT HEAD WITHOUT IV CONTRAST COMPARISON: 07/22/2020 HISTORY: Unwitnessed fall. TECHNIQUE: Axial CT imaging at 5 mm intervals from vertex through skull base without contrast FINDINGS: There is appearance of encephalomalacia and diminished attenuation left anterior frontal lobe likely to prior area of infarction just superior to the level of the sylvian fissure. Minimal scattered areas of diminished attenuation are seen in periventricular white matter which are nonspecific but li alex reflective of mild chronic small vessel ischemic changes. There is no evidence of an acute cortical infarction, hemorrhage, mass effect, or midline shift. Mild cerebral volume loss is present. The ventricular system is normal in size, shape, and position. Skull base has a normal CT appearance. Mucosal thickening is seen in a few posterior left ethmoidal air cells with trace mucosal thickening left sphenoid sinus. Mastoid air cells are clear. Osseous structures appear intact. IMPRESSION: 1. No acute intracranial abnormality demonstrated. 2. Stable chronic findings.
--- NOTE | 2020-08-19 15:35 | RAD ---
Exam: XR Knee Rt 4 View STANDARD HISTORY: Injury after fall. COMPARISON: 07/22/2020 and fluoroscopic images right knee 07/23/2020 FINDINGS: A lateral plate and multiple screws again transfix the comminuted fracture involving the proximal rig ht tibial fracture with fractures involving the lateral and medial tibial plateaus. Fracture lucencies do persist. No hardware complication is seen. Mildly comminuted fracture fibular head is ag ain seen and unchanged. No new fracture or dislocation is appreciated. No other findings. IMPRESSION: 1. Postoperative changes related to internal fixation of comminuted proximal right tibial fracture wi th intra-articular extension. 2. Stable comminuted fracture right fibular head. 3. No acute osseous abnormality.
--- NOTE | 2020-08-19 17:37 | PDOC.HOSPP ---
- Subjective Encounter Date: 08/19/20 Subjective: Patient reports generally she is doing well. This morning she was insisting on leaving AGAINST MEDICAL ADVICE but was convinced to stay primarily because her family indicated they would not come get her. She was subsequently transferred to the medical telemetry floor. Soon thereafter she was found on the floor. The patient is adamant that she simply slid down and did not fall. She denies any injury to her head or to her knee. She was not thrilled about getting the CT scan and said that she deserved a hamburger and fries from [employer] for her efforts. She denied any other problems. - Objective Vital Signs & Weight: Vital Signs (12 hours) Temp Pulse Resp BP Pulse Ox 08/19/20 15:05 98.4 F 100 20 126/75 98 08/19/20 13:53 97.9 F 103 H 20 110/60 95 08/19/20 11:13 97.6 F 105 H 22 H 100/57 L 97 08/19/20 08:00 97.8 F 96 Weight Admit Weight 128 lb Weight 124 lb 8.979 oz Most Recent Monitor Data Heart Rate from ECG 113 NIBP 131/85 NIBP BP-Mean 100 Respiration from ECG 24 SpO2 98 I&O: 08/18/20 08/19/20 08/20/20 06:59 06:59 06:59 Intake Total 2096.8 1121.8 300 Output Total 4905 1645 0 Balance -2808.2 -523.2 300 Result Diagrams: 08/18/20 03:01 08/19/20 03:35 Additional Labs: Accuchecks 08/19/20 13:29 POC Glucose 94 Hospitalist ROS - Medication Medications: Active Medications Generic Name Dose Route Start Last Admin Trade Name Freq PRN Reason Stop Dose Admin Albuterol/Ipratropium 3 ml 08/12/20 19:00 08/19/20 13:36 Ipratropium/Albuterol Sulfate 3 Ml Neb NEB Not Given [id number] MARCUS Aspirin 81 mg 08/18/20 09:00 08/19/20 08:54 Aspirin 81 Mg Enteric Coated Tablet PO 81 mg DAILY MARCUS Administration Atorvastatin Calcium 40 mg 08/15/20 21:00 08/18/20 20:45 Atorvastatin Calcium 40 Mg Tab PER TUBE 40 mg HS MARCUS Administration Cefdinir 600 mg 08/19/20 09:00 08/19/20 08:55 Cefdinir 300 Mg Cap PO 600 mg DAILY MARCUS Administration Clopidogrel Bisulfate 75 mg 08/19/20 09:00 08/19/20 08:54 Clopidogrel Bisulfate 75 Mg Tab PO 75 mg DAILY MARCUS Administration Folic Acid 1 mg 08/17/20 09:00 08/19/20 08:54 Folic Acid 1 Mg Tab PO 1 mg DAILY MARCUS Administration Nicotine 14 mg 08/19/20 08:00 08/19/20 08:56 Nicotine 14 Mg Patch TD 14 mg Q24HR MARCUS Administration Sodium Chloride 10 ml 08/18/20 09:00 08/19/20 08:55 Flush - Normal Saline 10 Ml Syringe IVF 10 ml Q12HR MARCUS Administration Temazepam 15 mg 08/19/20 07:37 08/19/20 09:59 Temazepam 15 Mg Cap PO 15 mg HSPRN PRN Administration Insomnia Thiamine HCl 100 mg 08/17/20 09:00 08/19/20 08:54 Thiamine 100 Mg Tab PO 100 mg DAILY MARCUS Administration - Exam General Appearance: NAD, awake alert Heart: RRR, no murmur, no gallops, no rubs, normal peripheral pulses Respiratory: CTAB, no wheezes, no rales, no ronchi, normal chest expansion, no tachypnea, normal percussion Gastrointestinal: soft, non-tender, non-distended, normal bowel sounds, no palpable masses, no hepatomegaly, no splenomegaly, no bruit Extremities: no cyanosis, no clubbing, no edema Extremities - other findings: Right knee brace with postoperative skin changes Musculoskeletal: normal tone, normal strength, no muscle wasting Psychiatric: normal affect, normal behavior Hosp A/P (1) Acute respiratory failure with hypoxia Code(s): J96.01 - ACUTE RESPIRATORY FAILURE WITH HYPOXIA Status: Acute (2) Oral bleeding Code(s): K13.79 - OTHER LESIONS OF ORAL MUCOSA Status: Acute (3) Tibial plateau fracture, right Code(s): S82.141A - DISPLACED BICONDYLAR FRACTURE OF RIGHT TIBIA, INIT Status: Acute (4) NSTEMI (non-ST elevated myocardial infarction) Code(s): I21.4 - NON-ST ELEVATION (NSTEMI) MYOCARDIAL INFARCTION Status: Acute (5) Carotid stenosis Code(s): I65.29 - OCCLUSION AND STENOSIS OF UNSPECIFIED CAROTID ARTERY Status: Acute (6) History of CVA (cerebrovascular accident) Code(s): Z86.73 - PRSNL HX OF TIA (TIA), AND CEREB INFRC W/O RESID DEFICITS Status: Acute (7) Pneumonia Code(s): J18.9 - PNEUMONIA, UNSPECIFIED ORGANISM Status: Acute (8) Coagulopathy Status: Acute (9) Alcohol abuse Code(s): F10.10 - ALCOHOL ABUSE, UNCOMPLICATED Status: Acute (10) Acute metabolic encephalopathy Code(s): G93.41 - METABOLIC ENCEPHALOPATHY Status: Acute (11) Methamphetamine abuse Code(s): F15.10 - OTHER STIMULANT ABUSE, UNCOMPLICATED Status: Acute - Plan This is a 60-year-old female patient recent admission on account of right lower limb fracture status post surgery, presents with worsening shortness of breath and admitted for severe pneumonia required intubation. She also has a history of CVA and CAD status post stenting. On 08/12/2020 while on intubation in ICU she developed bigeminy and troponins were elevatedwas started on Lovenox and aspirin however these have been discontinued on account of bleeding. Acute hypoxic respiratory failure Secondary to pneumonia and COPD. PE ruled out with CTA On ventilator support until extubated on 08/16/2020. Effectively wean down to room air subsequent to extubation. Subsequently doing well on room air. Appreciate pulmonology input Pneumonia Continue antibiotics Deescalated to cefepime and then to Omnicef p.o. Pulmonology following. NSTEMI Bigeminy with elevated troponin Echocardiogram shows an akinetic wall Started on Lovenox, however, discontinued due to increasing bleeding. Resumed Lovenox on 08/16/2020. Aspirin was also discontinued due to bleeding. With no signs of bleeding with resumption of the Lovenox will be resumed on 08/18/2020. Plavix resumed on 08/18/2020. Cardiology following. Now that the patient is more stable from a pulmonary standpoint will need to determine if there is an additional plan from cardiology for further work-up. Bleeding Patient bleeding from right groin femoral access Also bleeding noted from mouth Appears to have mild coagulopathy. Lovenox was held. GI consulted and EGD performed. Negative findings for oral bleeding. ENT consulted. Exam revealed no specific source of the oral bleeding. Oral bleeding stopped on 08/14/2020. Lovenox resumed on 08-16-2020 following extubation. Aspirin Plavix also resumed. No further evidence of bleeding. Right lower limb fracture Status post ORIF of right tibial plateau fracture. We will consider consult orthopedics once stable high risk for DVT, therefore Lovenox resumed on 08-16-2020 in spite of prior bleeding. Will obtain physical therapy consult on 08/18/2020 This was miguel-rayed after an unwitnessed fall/slide to the ground on 08/19/2020. Appears intact. History of CVA Continue monitoring Carotid artery disease Status post stenting at outside facility. details not known. History of drug (methamphetamine)/alcohol abuse: Thiamine and folate. Acute metabolic encephalopathy: Likely multifactorial. Could be related to some element of withdrawal. Significantly improved post extubation. CODE STATUSto be discussed. VTE prophylaxisLovenox until it was held. Then she was placed on SCDs. Lovenox resumed on 08-16-2020. Disposition: We will ask physical therapy to see if we get the patient moving. We will see if cardiology has any additional plans for further work-up or evaluation at this particular time. If not the patient will likely be ready for discharge soon assuming she is functional with therapy.
[2020-08-19] MEDS: Atorvastatin Calcium 40 MG TAB PER TUBE SCH (20:58)
[2020-08-19] MEDS: Famotidine 20 MG TAB PO SCH (20:58)
[2020-08-20] MEDS: Thiamine 100 MG TAB PO SCH (05:40)
[2020-08-20] MEDS: Cefdinir 300 MG CAP PO SCH (05:40)
[2020-08-20] MEDS: Aspirin 81 mg Enteric Coated Tablet PO SCH (05:40)
[2020-08-20] MEDS: Famotidine 20 MG TAB PO SCH ×2 (05:40→21:21)
[2020-08-20] MEDS: Folic Acid 1 MG TAB PO SCH (05:40)
[2020-08-20] MEDS ORDERED: Sodium Chloride 0.9% 1,000 ML IV SCH ×2 (06:00→08:39)
[2020-08-20] MEDS ORDERED: Heparin 10,000 UNITS/ 10 ML VIAL ONE (06:43)
[2020-08-20] MEDS ORDERED: Fentanyl 100 MCG/2 ML VIAL ONE (07:27)
[2020-08-20] MEDS ORDERED: Midazolam HCl 2 mg/2 ml Vial ONE (07:28)
[2020-08-20] MEDS ORDERED: Bivalirudin 250 MG VIAL ONE (08:00)
[2020-08-20] MEDS ORDERED: Nitroglycerin 100MG/250ML BOT 250 ML ONE (08:02)
[2020-08-20] MEDS ORDERED: Morphine 4 MG/ML VIAL SLOW IVP PRN (08:37)
[2020-08-20] MEDS ORDERED: Morphine 2 MG/ML VIAL SLOW IVP PRN (08:37)
[2020-08-20] MEDS: Clopidogrel Bisulfate 75 MG TAB PO SCH (09:00)
[2020-08-20] MEDS ORDERED: Iopamidol 370 76% 50 ML VIAL FS ONE (09:34)
[2020-08-20] MEDS ORDERED: Iopamidol 370 76% 100 ML VIAL ONE (09:34)
[2020-08-20] MEDS ORDERED: Morphine 4 MG/ML VIAL ONE (10:20)
[2020-08-20] MEDS: Nicotine 14 MG PATCH TD SCH (13:42)
[2020-08-20 13:53] VITALS: BMI 22.1
[2020-08-20] MEDS ORDERED: Carvedilol 3.125 MG TAB PO SCH (17:00)
[2020-08-20] MEDS: Atorvastatin Calcium 40 MG TAB PER TUBE SCH (21:21)
[2020-08-20] MEDS: Temazepam 15 MG CAP PO PRN (21:22)
--- NOTE | 2020-08-20 22:46 | PDOC.HOSPP ---
- Subjective Encounter Date: 08/20/20 Encounter Time: 14:30 Subjective: Patient seen and examined for respiratory failure with non-ST elevation [place]. Denies any chest pain or shortness of breath - Objective Vital Signs & Weight: Vital Signs (12 hours) Temp Pulse Resp BP BP BP Pulse Ox 08/20/20 19:18 98.3 F 100 18 100/63 98 08/20/20 19:05 84 16 08/20/20 15:59 96 F L 100 20 126/58 L 96 08/20/20 13:24 92 14 08/20/20 12:30 96.6 F L 94 16 125/76 125/76 95 Weight Admit Weight 128 lb Weight 125 lb Most Recent Monitor Data Heart Rate from ECG 113 NIBP 131/85 NIBP BP-Mean 100 Respiration from ECG 24 SpO2 98 I&O: 08/19/20 08/20/20 08/21/20 06:59 06:59 06:59 Intake Total 1121.8 660 1020 Output Total 1645 0 700 Balance -523.2 660 320 Result Diagrams: 08/21/20 04:02 08/21/20 04:02 EKG Reviewed by me: Yes (Sinus rhythm on telemetry) Hospitalist ROS - Review of Systems Cardiovascular: denies: chest pain, palpitations, orthopnea, paroxysmal noc. dyspnea, edema, light headedness, other Gastrointestinal: denies: nausea, vomiting, abdominal pain, diarrhea, constipation, melena, hematochezia, other - Medication Medications: Active Medications Generic Name Dose Route Start Last Admin Trade Name Freq PRN Reason Stop Dose Admin Albuterol/Ipratropium 3 ml 08/12/20 19:00 08/20/20 19:05 Ipratropium/Albuterol Sulfate 3 Ml Neb NEB 3 ml [id number] MARCUS Administration Aspirin 81 mg 08/18/20 09:00 08/20/20 05:40 Aspirin 81 Mg Enteric Coated Tablet PO 81 mg DAILY MARCUS Administration Atorvastatin Calcium 40 mg 08/15/20 21:00 08/20/20 21:21 Atorvastatin Calcium 40 Mg Tab PER TUBE 40 mg HS MARCUS Administration Carvedilol 1.5625 mg 08/20/20 17:00 08/20/20 17:41 Carvedilol 3.125 Mg Tab PO 1.5625 mg BID-WM MARCUS Administration Cefdinir 600 mg 08/19/20 09:00 08/20/20 05:40 Cefdinir 300 Mg Cap PO 600 mg DAILY MARCUS Administration Clopidogrel Bisulfate 75 mg 08/19/20 09:00 08/20/20 09:00 Clopidogrel Bisulfate 75 Mg Tab PO Not Given DAILY MARCUS Famotidine 20 mg 08/19/20 21:00 08/20/20 21:21 Famotidine 20 Mg Tab PO 20 mg BID MARCUS Administration Folic Acid 1 mg 08/17/20 09:00 08/20/20 05:40 Folic Acid 1 Mg Tab PO 1 mg DAILY MARCUS Administration Nicotine 14 mg 08/19/20 08:00 08/20/20 13:42 Nicotine 14 Mg Patch TD 14 mg Q24HR MARCUS Administration Sodium Chloride 10 ml 08/18/20 09:00 08/20/20 21:22 Flush - Normal Saline 10 Ml Syringe IVF 10 ml Q12HR MARCUS Administration Temazepam 15 mg 08/19/20 07:37 08/20/20 21:22 Temazepam 15 Mg Cap PO 15 mg HSPRN PRN Administration Insomnia Thiamine HCl 100 mg 08/17/20 09:00 08/20/20 05:40 Thiamine 100 Mg Tab PO 100 mg DAILY MARCUS Administration - Exam General Appearance: NAD Heart: RRR, no gallops Respiratory: no wheezes, no ronchi Gastrointestinal: soft, non-distended Extremities: no cyanosis Neurological: no new deficit Hosp A/P - Plan DVT proph w/SCDs Acute hypoxic hypercapnic respiratory failure/severe sepsis due to pneumonia questionable gram-negative with COPD exacerbationPOA Non-ST elevation MIPOA Lactic acidosisPOA JEMAL POA Coronary artery disease status post stent placement this admission Medication noncompliance Polysubstance abuse Anemia due to chronic disease hypertension History of CVA Electrolyte abnormality Plan: Continue dual antiplatelet therapy. Check electrolytes in a.m. and replace accordingly. Counseled on tobacco cessation. Continue low-dose beta-blockers. Continue Omnicef for pneumonia. Continue thiamine with folic acid. Plan discussed with the patient
[2020-08-21 05:05] LABS: Eosinophils 3 % (0-10); Lymphocytes 7 % (21-51); MDiff Complete? YES; Mean Corpuscular HGB CONC 33.4 g/dL (32.0-36.0); Mean Corpuscular Hemoglobin 31.6 pg (27.0-31.0); Mean Corpuscular Volume 94.4 fL (78.0-98.0); Mean Platelet Volume 9.2 fL (7.4-10.4); Monocytes 13 % (0-10); Neutrophil 77 % (42-75); Platelet Count 285 thou/uL (130-400); Platelet Morphology Comment Appears Adequate; RBC Distribution Width 13.4 % (11.5-14.5); Red Blood Cell (RBC) Count 2.85 mill/uL (4.20-5.40); White Blood Cell (WBC) Count 19.5 thou/uL (4.8-10.8)
[2020-08-21 05:24] LABS: ALT (SGPT) 11 U/L (8-55); AST (SGOT) 14 U/L (5-34); Albumin 3.2 g/dL (3.4-4.8); Alkaline Phosphatase 89 U/L (40-110); Anion Gap 12 mmol/L (10-20); BUN (Urea Nitrogen) 16 mg/dL (9.8-20.1); Bilirubin, Total 0.3 mg/dL (0.2-1.2); Calc. Creatinine Clearance 80 mL/min (70-130); Calcium 8.1 mg/dL (7.8-10.44); Carbon Dioxide 23 mmol/L (23-31); Chloride 107 mmol/L (98-107); Globulin 2.5 g/dL (2.4-3.5); Glucose 117 mg/dL (80-115); Magnesium 1.7 mg/dL (1.6-2.6); Protein, Total 5.7 g/dL (6.0-8.3); Sodium 139 mmol/L (136-145)
[2020-08-21 05:32] LABS: Potassium 2.8 mmol/L (3.5-5.1)
[2020-08-21] MEDS ORDERED: Potassium Chloride 20 MEQ TAB PO SCH (05:45)
[2020-08-21] MEDS ORDERED: Magnesium 2 GM/50 ML 2 GM in Premix Bag 1 BAG IVPB SCH (05:45)
[2020-08-21 07:45] VITALS: BP 151/82; TEMP 97.7
--- NOTE | 2020-08-21 10:11 | PDOC.DS.DS ---
Provider - Provider Date of Admission: 08/12/20 00:42 Date of Discharge: 08/21/20 Admitting Provider: Liz Spangler MD Consultations: Cardiology, Gastroentrology, Pulmonary Primary Care Physician: OUT OF TOWN Course - Hospital Course Hospital Course: Patient is 60-year-old female with coronary artery disease, hypertension and polysubstance abuse presented on 08/12 with shortness of breath along with chest discomfort. Patient was recently discharged by trauma service after open reduction and internal fixation of the right proximal tibial plateau fracture. Her work-up was consistent with acute hypoxic respiratory failure requiring mec hanical ventilation along with sepsis due to pneumonia/COPD exacerbation. CT angiogram of the chest on 08/11 showed right upper lobe pneumonia with small foci of central necrosis. The patient was monitored in the intensive care unit. She was evaluated by critical care. Her ABGs on admission showed pH of 7.23 with PCO2 52.6, PO2 of 130.6 and bicarbonate of 21.5 on mechanical ventilation. Covid testing was negative. Urine drug screen was positive for methamphetamine and benzodiazepines. She was started on empiric antibiotics with ventilation sedation protocol. She was also found to have elevated troponin of 0.875 consistent with non-ST elevation ID and was evaluated by cardiology Dr. Vance Galicia. Echocardiogram showed ejection fraction 45 to 50% with akinesis of the apical wall of the left ventricle and distal anterior wall with moderate mitral regurgitation and mild to moderate tricuspid regurgitation. After extubation she underwent cardiac catheterization on 08/20 that showed three- vessel coronary artery disease with drug-eluting stent placement to the proximal first diagonal coronary artery. The patient was also evaluated by gastroenterology due to GI bleeding. The NG tube was draining dark blood. She underwent EGD that showed normal esophageal mucosa, distal esophageal ring which was nonobstructing along with gastric and duodenal polyps. Please refer to various consultation note and progress notes for further details. Patient left AMA on 08/21 a.m. She understands the risks not limited to life-threatening complication including . She was advised to continue aspirin with Plavix. Cardiology was updated. Final diagnosis: Acute hypoxic hypercapnic respiratory failure/severe sepsis due to pneumonia questionable gram-negative with COPD exacerbationPOA Non-ST elevation MIPOA Lactic acidosisPOA JEMAL POA Coronary artery disease status post stent placement this admission Medication noncompliance Polysubstance abuse Anemia due to chronic disease hypertension History of CVA Electrolyte abnormality including hyperkalemia, hypokalemia, hypomagnesemia - Labs Lab Results: 08/21/20 04:02 08/21/20 04:02 Abnormal Lab Results - Last 48 hrs 08/20/20 11:00: Activated Clotting Time 158 H 08/21/20 04:02: Potassium 2.8 L*, Serum Total Protein 5.7 L, Albumin 3.2 L 08/21/20 04:02: WBC 19.5 H, RBC 2.85 L, Hgb 9.0 L, Hct 26.9 L, MCH 31.6 H, Neutrophils % (Manual) 77 H, Lymphocytes % (Manual) 7 L, Monocytes % (Manual) 13 H Microbiology - Entire Visit 08/11/20 22:08 Venous blood - Right Hand Blood Culture - Final NO GROWTH IN 5 DAYS 08/11/20 22:31 Venous blood - Left Arm Blood Culture - Final NO GROWTH IN 5 DAYS 08/12/20 11:00 Sputum Respiratory Culture - Final Staphylococcus aureus 08/12/20 01:30 Urine sage catheter Urine Culture - Final NO GROWTH AT 48 HOURS - Physical Exam Vitals: Vital Signs (12 hours) Temp Pulse Resp BP Pulse Ox 08/21/20 07:38 97.7 F 99 18 151/82 H 98 08/21/20 03:32 98.3 F 100 18 114/56 L 98 08/20/20 23:39 108 H 16 98 Weight Admit Weight 128 lb Weight 124 lb 4.8 oz Most Recent Monitor Data Heart Rate from ECG 113 NIBP 131/85 NIBP BP-Mean 100 Respiration from ECG 24 SpO2 98 Physical Exam: The patient was seen and examined on the day of discharge. Patient in no apparent distress. Lungs were clear to auscultation bilaterally. Heart S1-S2 presentregular. No edema in lower extremity. Plan - Discharge Medications Prescriptions: Carvedilol [Coreg] 1.5625 mg PO BID-WM #30 tab Aspirin [Ecotrin Low Strength] 81 mg PO DAILY #30 tab Atorvastatin Calcium [Lipitor] 40 mg PER TUBE HS #30 tab Cefdinir [Omnicef] 300 mg PO BID #10 cap Clopidogrel Bisulfate [Plavix] 75 mg PO DAILY #30 tab Home Medications: Medication Instructions Recorded Confirmed Type Aspirin [Ecotrin Low Strength] 81 mg PO DAILY #30 tab 08/21/20 Rx Atorvastatin Calcium [Lipitor] 40 mg PER TUBE HS #30 tab 08/21/20 Rx Carvedilol [Coreg] 1.5625 mg PO BID-WM #30 tab 08/21/20 Rx Cefdinir [Omnicef] 300 mg PO BID #10 cap 08/21/20 Rx Clopidogrel Bisulfate [Plavix] 75 mg PO DAILY #30 tab 08/21/20 Rx Folic Acid [Folvite] 1 mg PO DAILY tab 08/21/20 Rx Thiamine 100 mg PO DAILY tab 08/21/20 Rx Allergies: iodine Allergy (Verified 07/22/20 17:34) Rash - Follow up Plan Referrals: Cardiac Rehab - [place] [Outside] - 7 Days (Your doctor has ordered outpatient cardiac rehab for you to begin within 1-2 weeks after you go home from the hospital. The location nearest to you is the [place] [facility]. The front office in [place] will call you in 3-5 days to get you scheduled for your evaluation. If you do not receive a call, please reach out to them at [phone] and request an appointment. Should you have any trouble or need assistance, please call the cardiac rehab main line in [place] at [phone]) [facility],OUT OF [Primary Care Provider] - Disposition: LEFT AGAINST MEDICAL ADVICE Quality - Care Measures CORE MEASURES:: AMI - Stroke/TIA Did you prescribe antithrombotic therapy?: Yes Did you prescribe anticoagulant for A Fib/Flutter?: No Specify reason for no DC anticoagulant: Treatment not indicated Did you prescribe a statin medication?: Yes
--- NOTE | 2020-08-23 13:27 | EKG ---
Test Reason : Blood Pressure : / mmHG Vent. Rate : 134 BPM Atrial Rate : 127 BPM P-R Int : 000 ms QRS Dur : 068 ms QT Int : 382 ms P-R-T Axes : 000 103 058 degrees QTc Int : 570 ms Supraventricular tachycardia Rightward axis Anterior infarct , age undetermined Abnormal ECG Confirmed by ELIN MARLOW M.D. ([id number]), editor book CLAYTON JACK ([id number]) on 08/23/2020 1:27:25 PM Referred By: Confirmed By:ELIN MARLOW M.D.
== END 2020-08-21 07:54 | disposition left against medical advice (07) | DRG 853 ==
LOC: ERS 21:54 → CCU 08-12 00:42 → 2NO 08-19 11:10
PROVIDERS: ADMIT Internal Medicine; ATTEND Internal Medicine
PROC: 5A1955Z Respiratory Ventilation, Greater than 96 Consecutive Hours (ICD-10-PCS; 2020-08-12)
PROC: 06HY33Z Insertion of Infusion Device into Lower Vein, Percutaneous Approach (ICD-10-PCS; 2020-08-12)
PROC: 0BH17EZ Insertion of Endotracheal Airway into Trachea, Via Natural or Artificial Opening (ICD-10-PCS; 2020-08-12)
PROC: 0DH67UZ Insertion of Feeding Device into Stomach, Via Natural or Artificial Opening (ICD-10-PCS; 2020-08-12)
PROC: 3E033XZ Introduction of Vasopressor into Peripheral Vein, Percutaneous Approach (ICD-10-PCS; 2020-08-12)
PROC: 0DJ08ZZ Inspection of Upper Intestinal Tract, Via Natural or Artificial Opening Endoscopic (ICD-10-PCS; 2020-08-13)
PROC: 027034Z Dilation of Coronary Artery, One Artery with Drug-eluting Intraluminal Device, Percutaneous Approach (ICD-10-PCS; principal; 2020-08-20)
PROC: 4A023N7 Measurement of Cardiac Sampling and Pressure, Left Heart, Percutaneous Approach (ICD-10-PCS; 2020-08-20)
PROC: B2151ZZ Fluoroscopy of Left Heart using Low Osmolar Contrast (ICD-10-PCS; 2020-08-20)
PROC: B2111ZZ Fluoroscopy of Multiple Coronary Arteries using Low Osmolar Contrast (ICD-10-PCS; 2020-08-20)
DX: A41.9 Sepsis, unspecified organism (principal); J96.01 Acute respiratory failure with hypoxia; J18.9 Pneumonia, unspecified organism; I21.4 Non-ST elevation (NSTEMI) myocardial infarction; G93.41 Metabolic encephalopathy; J44.1 Chronic obstructive pulmonary disease with (acute) exacerbation; J44.0 Chronic obstructive pulmonary disease with (acute) lower respiratory infection; E87.2 Acidosis; D68.9 Coagulation defect, unspecified; K92.2 Gastrointestinal hemorrhage, unspecified; Z20.828 Contact with and (suspected) exposure to other viral communicable diseases; R65.20 Severe sepsis without septic shock; I25.10 Atherosclerotic heart disease of native coronary artery without angina pectoris; F19.10 Other psychoactive substance abuse, uncomplicated; D63.8 Anemia in other chronic diseases classified elsewhere; I10 Essential (primary) hypertension; E87.5 Hyperkalemia; E78.5 Hyperlipidemia, unspecified; F17.210 Nicotine dependence, cigarettes, uncomplicated; E78.00 Pure hypercholesterolemia, unspecified; K31.7 Polyp of stomach and duodenum; I65.29 Occlusion and stenosis of unspecified carotid artery; F10.10 Alcohol abuse, uncomplicated; F15.10 Other stimulant abuse, uncomplicated; Z53.29 Procedure and treatment not carried out because of patient's decision for other reasons; E87.6 Hypokalemia; E83.42 Hypomagnesemia; K13.79 Other lesions of oral mucosa; Z86.73 Personal history of transient ischemic attack (TIA), and cerebral infarction without residual deficits; Z91.14 Patient's other noncompliance with medication regimen; Z91.041 Radiographic dye allergy status; Z79.899 Other long term (current) drug therapy; Z79.82 Long term (current) use of aspirin; Z78.1 Physical restraint status; Z95.5 Presence of coronary angioplasty implant and graft; S82.141D Displaced bicondylar fracture of right tibia, subsequent encounter for closed fracture with routine healing
CPT/HCPCS: 31500; 36415; 36416; 36430; 36556; 36600; 51702; 70450; 71045; 71275; 80048; 80053; 80061; 80202; 80306; 81003; 82805; 83605; 83735; 84484; 85007; 85025; 85027; 85049; 85300; 85347; 85362; 85379; 85384; 85610; 85730; 86850; 86900; 86901; 87040; 87070; 87077; 87086; 87186; 87205; 92928; 93005; 93010; 93306; 93458; 94002; 94003; 94640; 94644; 96365; 96366; 96367; 96375; 96376; 99152; 99153; 99292; C1874; C9600; J0456; J0583; J0692; J1644; J1650; J2060; J2250; J2270; J2543; J2704; J2920; J2930; J3010; J3370; J3475; J3480; J3490; J7050; J7620; P9016; P9059; Q9967; S0028; U0002

== ENCOUNTER 2021-02-20 21:29 | Observation (INO) | payer SELFPAY ==
[2021-02-20 23:46] VITALS: BMI 24.0
[2021-02-21] MEDS ORDERED: Acetaminophen 325 MG TAB PO PRN (01:53)
[2021-02-21] MEDS ORDERED: Ondansetron PF 4 MG/2 ML Vial IVP PRN (01:53)
[2021-02-21 05:06] LABS: ALT (SGPT) 62 U/L (8-55); AST (SGOT) 63 U/L (5-34); Albumin 3.6 g/dL (3.4-4.8); Alkaline Phosphatase 147 U/L (40-110); Bilirubin, Direct 0.3 mg/dL (0.1-0.3); Bilirubin, Total 0.4 mg/dL (0.2-1.2); Protein, Total 6.8 g/dL (5.8-8.1)
[2021-02-21 05:07] LABS: Lactic Acid 2.7 mmol/L (0.5-2.2)
[2021-02-21 05:10] LABS: Troponin I 0.012 ng/mL (< 0.028)
[2021-02-21 05:12] LABS: Anion Gap 14 mmol/L (10-20); BUN (Urea Nitrogen) 20 mg/dL (9.8-20.1); Calc. Creatinine Clearance 55 mL/min (70-130); Calcium 8.8 mg/dL (7.8-10.44); Carbon Dioxide 25 mmol/L (23-31); Chloride 101 mmol/L (98-107); Glucose 198 mg/dL (80-115); Potassium 4.2 mmol/L (3.5-5.1); Sodium 136 mmol/L (136-145)
[2021-02-21 06:26] LABS: #Lymphocytes 0.9 thou/uL (1.20-3.40); #Monocytes 0.1 thou/uL (0.11-0.59); #Neutrophils 5.2 thou/uL (1.40-6.50); %Basophils 0.6 % (0.0-1.0); %Eosinophils 0.1 % (0.0-10.0); %Lymphocytes 13.8 % (21.0-51.0); %Monocytes 1.4 % (0.0-10.0); %Neutrophils 84.1 % (42.0-75.0); Hemoglobin 12.3 g/dL (12.0-16.0); Mean Corpuscular HGB CONC 30.9 g/dL (32.0-36.0); Mean Corpuscular Hemoglobin 28.1 pg (27.0-31.0); Mean Corpuscular Volume 90.8 fL (78.0-98.0); Mean Platelet Volume 9.7 fL (7.4-10.4); Platelet Count 240 thou/uL (130-400); RBC Distribution Width 16.2 % (11.5-14.5); Red Blood Cell (RBC) Count 4.38 mill/uL (4.20-5.40); White Blood Cell (WBC) Count 6.2 thou/uL (4.8-10.8)
[2021-02-21 06:27] LABS: Large Platelets SLIGHT; MDiff Complete? YES; Platelet Morphology Comment Appears Adequate
[2021-02-21] MEDS: Furosemide 20 MG/2 ML VIAL SLOW IVP SCH ×2 (06:31→14:04)
[2021-02-21] MEDS: methylPREDNISolone Sod Succ 40 MG VIAL IVP SCH ×2 (08:40→21:49)
[2021-02-21 08:54] LABS: Troponin I 0.016 ng/mL (< 0.028)
[2021-02-21] MEDS ORDERED: Enoxaparin Sodium 40 MG/0.4 ML SYRINGE SC SCH (09:00)
[2021-02-21] MEDS ORDERED: Folic Acid 1 MG TAB PO SCH (10:30)
[2021-02-21] MEDS ORDERED: Clopidogrel Bisulfate 75 MG TAB PO SCH (10:30)
[2021-02-21] MEDS ORDERED: Carvedilol 3.125 MG TAB PO SCH (10:30)
[2021-02-21] MEDS ORDERED: Aspirin 81 mg Enteric Coated Tablet PO SCH (10:30)
[2021-02-21] MEDS ORDERED: Famotidine 20 MG TAB PO SCH (11:00)
[2021-02-21] MEDS: Carvedilol 3.125 MG TAB PO SCH (17:19)
[2021-02-21] MEDS ORDERED: cefTRIAXone\\ROCEPHIN 1 GM in Sodium Chloride 0.9% 100 ML IVPB SCH (19:00)
[2021-02-21] MEDS ORDERED: Azithromycin 500 MG in Sodium Chloride 0.9% 250 ML 250 ML IVPB SCH (20:00)
[2021-02-21] MEDS: Famotidine 20 MG TAB PO SCH (20:34)
[2021-02-21] MEDS ORDERED: Atorvastatin Calcium 40 MG TAB PER TUBE SCH (21:00)
[2021-02-21] MEDS ORDERED: Polyethylene Glycol 3350 17 GM Packet PO SCH (22:30)
[2021-02-22 05:06] LABS: Hemoglobin 11.9 g/dL (12.0-16.0); Mean Corpuscular HGB CONC 30.5 g/dL (32.0-36.0); Mean Corpuscular Hemoglobin 28.1 pg (27.0-31.0); Mean Corpuscular Volume 92.4 fL (78.0-98.0); Mean Platelet Volume 9.8 fL (7.4-10.4); Platelet Count 232 thou/uL (130-400); RBC Distribution Width 16.2 % (11.5-14.5); Red Blood Cell (RBC) Count 4.24 mill/uL (4.20-5.40); White Blood Cell (WBC) Count 17.9 thou/uL (4.8-10.8)
[2021-02-22 05:25] LABS: Anion Gap 15 mmol/L (10-20); BUN (Urea Nitrogen) 26 mg/dL (9.8-20.1); Calc. Creatinine Clearance 54 mL/min (70-130); Calcium 8.8 mg/dL (7.8-10.44); Carbon Dioxide 24 mmol/L (23-31); Chloride 102 mmol/L (98-107); Glucose 142 mg/dL (80-115); Potassium 5.1 mmol/L (3.5-5.1); Sodium 136 mmol/L (136-145)
[2021-02-22 05:39] LABS: Band 8 % (5-11); Lymphocytes 7 % (21-51); MDiff Complete? YES; Monocytes 1 % (0-10); Neutrophil 84 % (42-75)
[2021-02-22] MEDS: Furosemide 20 MG/2 ML VIAL SLOW IVP SCH (06:51)
[2021-02-22] MEDS ORDERED: Clopidogrel Bisulfate 75 MG TAB PO SCH (09:00)
[2021-02-22] MEDS ORDERED: Folic Acid 1 MG TAB PO SCH (09:00)
[2021-02-22] MEDS ORDERED: Aspirin 81 mg Enteric Coated Tablet PO SCH (09:00)
[2021-02-22] MEDS ORDERED: Docusate 100 MG CAP PO SCH (09:00)
[2021-02-22] MEDS ORDERED: Polyethylene Glycol 3350 17 GM Packet PO SCH (09:00)
[2021-02-22] MEDS: Carvedilol 3.125 MG TAB PO SCH (09:13)
[2021-02-22] MEDS: Famotidine 20 MG TAB PO SCH ×2 (09:13→09:14)
[2021-02-22] MEDS: methylPREDNISolone Sod Succ 40 MG VIAL IVP SCH (09:14)
[2021-02-22 12:57] VITALS: BP 121/81; TEMP 97.8
== END 2021-02-22 15:30 | disposition home or self-care (01) ==
LOC: 2SW 23:29
PROVIDERS: ADMIT Internal Medicine; ATTEND Internal Medicine
DX: I11.0 Hypertensive heart disease with heart failure (principal); I50.23 Acute on chronic systolic (congestive) heart failure; J44.1 Chronic obstructive pulmonary disease with (acute) exacerbation; I25.10 Atherosclerotic heart disease of native coronary artery without angina pectoris; N39.0 Urinary tract infection, site not specified; F17.210 Nicotine dependence, cigarettes, uncomplicated; R77.8 Other specified abnormalities of plasma proteins; E87.2 Acidosis; I08.1 Rheumatic disorders of both mitral and tricuspid valves; Z79.02 Long term (current) use of antithrombotics/antiplatelets; Z79.82 Long term (current) use of aspirin; Z79.899 Other long term (current) drug therapy; Z91.041 Radiographic dye allergy status; Z20.822 Contact with and (suspected) exposure to COVID-19
CPT/HCPCS: 36415; 80048; 80076; 83605; 85025; 93306; 94640; 96365; 96367; 96375; 96376; G0378; J0456; J0696; J1940; J2920; J3490; J7050; J7620

== ENCOUNTER 2021-03-28 02:41 | Inpatient (IN) | payer SELFPAY ==
[2021-03-28 03:09] VITALS: BMI 24.7
[2021-03-28] MEDS ORDERED: Metoprolol Tartrate 5 MG/5 ML VIAL IVP SCH ×2 (03:15→09:00)
[2021-03-28] MEDS ORDERED: Acetaminophen 325 MG TAB PO PRN (05:06)
[2021-03-28] MEDS ORDERED: Ondansetron PF 4 MG/2 ML Vial IVP PRN (05:06)
[2021-03-28] MEDS ORDERED: Metoprolol Tartrate 5 MG/5 ML VIAL IVP PRN ×2 (05:28→06:26)
[2021-03-28 06:06] LABS: #Basophils 0.1 thou/uL (0.0-0.2); #Eosinphils 0.1 thou/uL (0.0-0.7); #Lymphocytes 3.3 thou/uL (1.20-3.40); #Monocytes 0.7 thou/uL (0.11-0.59); #Neutrophils 4.7 thou/uL (1.40-6.50); %Basophils 0.7 % (0.0-1.0); %Monocytes 8.4 % (0.0-10.0); Hemoglobin 12.9 g/dL (12.0-16.0); Mean Corpuscular HGB CONC 31.6 g/dL (32.0-36.0); Mean Corpuscular Hemoglobin 28.5 pg (27.0-31.0); Mean Corpuscular Volume 90.3 fL (78.0-98.0); Platelet Count 220 thou/uL (130-400); RBC Distribution Width 15.9 % (11.5-14.5); Red Blood Cell (RBC) Count 4.52 mill/uL (4.20-5.40); White Blood Cell (WBC) Count 8.9 thou/uL (4.8-10.8)
[2021-03-28 06:30] LABS: Anion Gap 17 mmol/L (10-20); BUN (Urea Nitrogen) 21 mg/dL (9.8-20.1); Calc. Creatinine Clearance 63 mL/min (70-130); Calcium 9.1 mg/dL (7.8-10.44); Carbon Dioxide 19 mmol/L (23-31); Chloride 106 mmol/L (98-107); Glucose 90 mg/dL (80-115); Magnesium 1.5 mg/dL (1.6-2.6); Potassium 4.5 mmol/L (3.5-5.1); Sodium 137 mmol/L (136-145)
[2021-03-28] MEDS ORDERED: Enoxaparin Sodium 40 MG/0.4 ML SYRINGE SC SCH (09:00)
[2021-03-28] MEDS ORDERED: Doxycycline 100 MG in Syringe 0 ML IVPB SCH (09:00)
[2021-03-28] MEDS ORDERED: Furosemide 40 MG/4 ML VIAL SLOW IVP SCH (09:00)
[2021-03-28] MEDS: Azithromycin 250 MG TAB PO SCH (09:30)
[2021-03-28] MEDS: Enoxaparin Sodium 60 MG/0.6 ML SYRINGE SC SCH ×2 (09:30→20:17)
[2021-03-28] MEDS ORDERED: PROPOFOL 20 ML ONE (10:12)
[2021-03-28] MEDS ORDERED: Lidocaine 1% PF 5 ML VIAL ONE (10:43)
[2021-03-28] MEDS ORDERED: PHENYLEPHRINE-NS 100 MCG/ML 10 ML SYRINGE ONE (10:43)
[2021-03-28] MEDS ORDERED: PROPOFOL 200 MG/20 ML VIAL ONE (10:43)
[2021-03-28] MEDS ORDERED: Aspirin 81 mg Enteric Coated Tablet PO SCH (11:00)
[2021-03-28] MEDS ORDERED: Clopidogrel Bisulfate 75 MG TAB PO SCH (11:15)
[2021-03-28 11:54] LABS: Amphetamine Not Detected (NotDetected); Barbiturates Screen Not Detected (NotDetected); Benzodiazepine Screen Not Detected (NotDetected); Cocaine Metabolite Screen Not Detected (NotDetected); Methadone Not Detected (NotDetected); Methamphetamine Detected (NotDetected); Opiate Screen Not Detected (NotDetected); Oxycodone Screen Not Detected (NotDetected); Phencyclidine (PCP) Not Detected (NotDetected); THC/Cannabinoid Screen Not Detected (NotDetected); Tricyclic Screen Not Detected (NotDetected)
[2021-03-28] MEDS ORDERED: Magnesium 2 GM/50 ML 2 GM in Premix Bag 1 BAG IVPB SCH (13:00)
[2021-03-28] MEDS: Amiodarone 200 MG TAB PO SCH ×2 (14:02→20:16)
[2021-03-28] MEDS: cefTRIAXone\\ROCEPHIN 1 GM in Sodium Chloride 0.9% 100 ML IVPB SCH (17:10)
[2021-03-28] MEDS: Carvedilol 3.125 MG TAB PO SCH (17:10)
[2021-03-28] MEDS: Atorvastatin Calcium 40 MG TAB PO SCH (20:16)
[2021-03-28] MEDS ORDERED: Calcium Carbonate 500 MG ChewTAB PO PRN (23:44)
[2021-03-29] MEDS: Cepastat Lozenges 1 LOZ PO PRN
[2021-03-29 04:30] LABS: #Basophils 0.1 thou/uL (0.0-0.2); #Eosinphils 0.1 thou/uL (0.0-0.7); #Lymphocytes 3.6 thou/uL (1.20-3.40); #Monocytes 0.9 thou/uL (0.11-0.59); #Neutrophils 5.1 thou/uL (1.40-6.50); %Monocytes 8.7 % (0.0-10.0); %Neutrophils 52.3 % (42.0-75.0); Hemoglobin 12.9 g/dL (12.0-16.0); Mean Corpuscular HGB CONC 31.8 g/dL (32.0-36.0); Mean Corpuscular Hemoglobin 28.7 pg (27.0-31.0); Mean Corpuscular Volume 90.2 fL (78.0-98.0); Mean Platelet Volume 9.9 fL (7.4-10.4); Platelet Count 211 thou/uL (130-400); RBC Distribution Width 15.9 % (11.5-14.5); Red Blood Cell (RBC) Count 4.49 mill/uL (4.20-5.40); White Blood Cell (WBC) Count 9.8 thou/uL (4.8-10.8)
[2021-03-29 04:39] LABS: Anion Gap 15 mmol/L (10-20); BUN (Urea Nitrogen) 26 mg/dL (9.8-20.1); Calc. Creatinine Clearance 43 mL/min (70-130); Calcium 9.2 mg/dL (7.8-10.44); Carbon Dioxide 21 mmol/L (23-31); Chloride 102 mmol/L (98-107); Glucose 105 mg/dL (80-115); Potassium 4.3 mmol/L (3.5-5.1); Sodium 134 mmol/L (136-145)
[2021-03-29] MEDS: Aspirin 81 mg Enteric Coated Tablet PO SCH (08:13)
[2021-03-29] MEDS: Clopidogrel Bisulfate 75 MG TAB PO SCH (08:13)
[2021-03-29] MEDS: Azithromycin 250 MG TAB PO SCH (08:13)
[2021-03-29] MEDS: Carvedilol 3.125 MG TAB PO SCH (08:14)
[2021-03-29] MEDS: Amiodarone 200 MG TAB PO SCH ×3 (08:14→20:02)
[2021-03-29] MEDS: Enoxaparin Sodium 60 MG/0.6 ML SYRINGE SC SCH ×2 (08:14→20:02)
[2021-03-29] MEDS ORDERED: Famotidine 20 MG TAB PO SCH (09:00)
[2021-03-29] MEDS ORDERED: Carvedilol 3.125 MG TAB PO SCH (09:30)
[2021-03-29] MEDS: Carvedilol 6.25 MG TAB PO SCH (17:07)
[2021-03-29] MEDS: cefTRIAXone\\ROCEPHIN 1 GM in Sodium Chloride 0.9% 100 ML IVPB SCH (17:37)
[2021-03-29] MEDS: Atorvastatin Calcium 40 MG TAB PO SCH (20:03)
[2021-03-30] MEDS: Ondansetron ODT 4 MG TAB PO PRN ×2 (04:35→15:23)
[2021-03-30] MEDS: Enoxaparin Sodium 60 MG/0.6 ML SYRINGE SC SCH ×2 (08:20→22:05)
[2021-03-30] MEDS: Carvedilol 6.25 MG TAB PO SCH ×2 (08:20→17:27)
[2021-03-30] MEDS: Famotidine 20 MG TAB PO SCH (08:21)
[2021-03-30] MEDS: Amiodarone 200 MG TAB PO SCH ×3 (08:21→22:05)
[2021-03-30] MEDS: Azithromycin 250 MG TAB PO SCH (08:21)
[2021-03-30] MEDS: Aspirin 81 mg Enteric Coated Tablet PO SCH (08:21)
[2021-03-30] MEDS: Clopidogrel Bisulfate 75 MG TAB PO SCH (08:21)
[2021-03-30] MEDS: cefTRIAXone\\ROCEPHIN 1 GM in Sodium Chloride 0.9% 100 ML IVPB SCH (17:27)
[2021-03-30] MEDS: Melatonin 3 MG TAB PO PRN (22:05)
[2021-03-30] MEDS: Atorvastatin Calcium 40 MG TAB PO SCH (22:05)
[2021-03-31] MEDS ORDERED: Labetalol HCl 100 MG/20 ML VIAL ONE (00:23)
[2021-03-31 04:31] LABS: #Basophils 0.1 thou/uL (0.0-0.2); #Eosinphils 0.1 thou/uL (0.0-0.7); #Lymphocytes 2.8 thou/uL (1.20-3.40); #Monocytes 0.9 thou/uL (0.11-0.59); #Neutrophils 4.9 thou/uL (1.40-6.50); %Basophils 0.6 % (0.0-1.0); %Eosinophils 0.7 % (0.0-10.0); %Lymphocytes 32.4 % (21.0-51.0); %Monocytes 10.3 % (0.0-10.0); Hemoglobin 12.2 g/dL (12.0-16.0); Mean Corpuscular HGB CONC 31.8 g/dL (32.0-36.0); Mean Corpuscular Hemoglobin 28.6 pg (27.0-31.0); Mean Platelet Volume 10.4 fL (7.4-10.4); Platelet Count 188 thou/uL (130-400); RBC Distribution Width 15.9 % (11.5-14.5); Red Blood Cell (RBC) Count 4.27 mill/uL (4.20-5.40); White Blood Cell (WBC) Count 8.7 thou/uL (4.8-10.8)
[2021-03-31 04:48] LABS: Anion Gap 16 mmol/L (10-20); BUN (Urea Nitrogen) 34 mg/dL (9.8-20.1); Calc. Creatinine Clearance 31 mL/min (70-130); Calcium 8.9 mg/dL (7.8-10.44); Carbon Dioxide 22 mmol/L (23-31); Cardiac Risk 7.4 (Less than 4.5); Chloride 100 mmol/L (98-107); Cholesterol 118 mg/dl (< 200 Desired); Glucose 96 mg/dL (80-115); HDL Cholesterol 16 mg/dL (>60 Neg Risk); LDL Cholesterol, Calculated 90 mg/dL; Potassium 4.7 mmol/L (3.5-5.1); Sodium 133 mmol/L (136-145); Triglycerides 60 mg/dL (Less than 150)
[2021-03-31] MEDS: Enoxaparin Sodium 60 MG/0.6 ML SYRINGE SC SCH (08:46)
[2021-03-31] MEDS: Amiodarone 200 MG TAB PO SCH ×3 (08:47→20:49)
[2021-03-31] MEDS: Clopidogrel Bisulfate 75 MG TAB PO SCH (08:47)
[2021-03-31] MEDS: Aspirin 81 mg Enteric Coated Tablet PO SCH (08:47)
[2021-03-31] MEDS: Azithromycin 250 MG TAB PO SCH (08:47)
[2021-03-31] MEDS: Famotidine 20 MG TAB PO SCH (08:47)
[2021-03-31] MEDS: Carvedilol 6.25 MG TAB PO SCH ×2 (08:47→16:06)
[2021-03-31] MEDS ORDERED: Sodium Chloride 0.9% 1,000 ML IV SCH (09:00)
[2021-03-31] MEDS ORDERED: Sodium Chloride 0.9% 500 ML IV SCH (13:45)
[2021-03-31] MEDS: cefTRIAXone\\ROCEPHIN 1 GM in Sodium Chloride 0.9% 100 ML IVPB SCH (17:14)
[2021-03-31 18:22] LABS: Albumin 3.2 g/dL (3.4-4.8); Anion Gap 16 mmol/L (10-20); BUN (Urea Nitrogen) 41 mg/dL (9.8-20.1); BUN/Creatinine Ratio 19.71; CK (CPK) 216 U/L (29-168); Calc. Creatinine Clearance 27 mL/min (70-130); Calcium 8.6 mg/dL (7.8-10.44); Carbon Dioxide 20 mmol/L (23-31); Chloride 100 mmol/L (98-107); Glucose 135 mg/dL (80-115); Sodium 131 mmol/L (136-145)
[2021-03-31] MEDS: Melatonin 3 MG TAB PO PRN (20:48)
[2021-03-31] MEDS: Atorvastatin Calcium 40 MG TAB PO SCH (20:48)
[2021-03-31] MEDS ORDERED: Sodium Bicarbonate 75 MEQ in Sodium Chloride 0.45% 1,000 ML IV ONE (21:00)
[2021-04-01] MEDS: Cepastat Lozenges 1 LOZ PO PRN (01:48)
[2021-04-01 04:43] LABS: Bilirubin Small (Negative); Blood, Urine Trace (Negative); Glucose, Urine (Dipstick) Negative (Negative); Ketone, Urine Negative (Negative); Leukocyte Negative (Negative); Nitrite Negative (Negative); Protein, Urine (Dipstick) 30 mg/dL (Neg-Trace); Urobilinogen 0.2 mg/dL (Less than 2)
[2021-04-01 04:51] LABS: Clarity Hazy (Clear)
[2021-04-01 04:52] LABS: Bacteria/HPF 1+ HPF (None Seen); RBC/HPF 0-3 HPF (0-3); Specific Gravity, Urine 1.032 (1.002-1.036); Squamous Epithelial 0-3 HPF (0-3); Urine Culture Reflex No No
[2021-04-01 05:06] LABS: Creatinine, Urine 318.48 mg/dL (47-110)
[2021-04-01] MEDS: Carvedilol 6.25 MG TAB PO SCH ×3 (08:21→18:08)
[2021-04-01] MEDS ORDERED: Sodium Bicarbonate 75 MEQ in Sodium Chloride 0.45% 1,000 ML IV SCH ×2 (08:45→14:15)
[2021-04-01] MEDS: Amiodarone 200 MG TAB PO SCH ×3 (08:48→21:41)
[2021-04-01] MEDS: Clopidogrel Bisulfate 75 MG TAB PO SCH (08:48)
[2021-04-01] MEDS: Famotidine 20 MG TAB PO SCH (08:48)
[2021-04-01] MEDS: Ezetimibe 10 MG TAB PO SCH (08:48)
[2021-04-01] MEDS: Aspirin 81 mg Enteric Coated Tablet PO SCH (08:48)
[2021-04-01] MEDS ORDERED: Enoxaparin Sodium 60 MG/0.6 ML SYRINGE SC SCH (09:00)
[2021-04-01 09:44] LABS: Albumin 3.3 g/dL (3.4-4.8); Anion Gap 16 mmol/L (10-20); BUN (Urea Nitrogen) 40 mg/dL (9.8-20.1); Calc. Creatinine Clearance 26 mL/min (70-130); Calcium 8.4 mg/dL (7.8-10.44); Carbon Dioxide 23 mmol/L (23-31); Chloride 97 mmol/L (98-107); Glucose 81 mg/dL (80-115); Phosphorus 4.6 mg/dL (2.3-4.7); Potassium 4.7 mmol/L (3.5-5.1); Sodium 131 mmol/L (136-145)
[2021-04-01 10:47] LABS: #Lymphocytes 2.1 thou/uL (1.20-3.40); #Neutrophils 5.1 thou/uL (1.40-6.50); %Basophils 0.4 % (0.0-1.0); %Eosinophils 0.3 % (0.0-10.0); %Lymphocytes 25.2 % (21.0-51.0); %Neutrophils 62.1 % (42.0-75.0); Hemoglobin 12.1 g/dL (12.0-16.0); Mean Corpuscular HGB CONC 31.7 g/dL (32.0-36.0); Mean Corpuscular Hemoglobin 28.3 pg (27.0-31.0); Mean Corpuscular Volume 89.4 fL (78.0-98.0); Mean Platelet Volume 10.7 fL (7.4-10.4); Platelet Count 193 thou/uL (130-400); RBC Distribution Width 16.1 % (11.5-14.5); Red Blood Cell (RBC) Count 4.26 mill/uL (4.20-5.40); White Blood Cell (WBC) Count 8.2 thou/uL (4.8-10.8)
[2021-04-01] MEDS ORDERED: Heparin 25,000 units/D5W 500 ML ONE (14:22)
[2021-04-01] MEDS ORDERED: Heparin 10,000 UNITS/ 10 ML VIAL ONE (14:22)
[2021-04-01] MEDS ORDERED: Isoproterenol 0.2 MG/1 ML AMP ONE (14:22)
[2021-04-01] MEDS ORDERED: Protamine Sulfate 50 MG/5 ML VIAL ONE (14:48)
[2021-04-01] MEDS ORDERED: Lidocaine 1% (PF) 30 ML VIAL ONE (15:05)
[2021-04-01] MEDS ORDERED: Fentanyl 100 MCG/2 ML VIAL ONE (15:16)
[2021-04-01] MEDS ORDERED: Phenylephrine 10 MG/ML VIAL ONE (15:23)
[2021-04-01] MEDS ORDERED: Lidocaine 1% PF 5 ML VIAL ONE (15:32)
[2021-04-01 15:39] LABS: ALT (SGPT) 206 U/L (8-55); AST (SGOT) 221 U/L (5-34); Albumin 3.3 g/dL (3.4-4.8); Alkaline Phosphatase 118 U/L (40-110); Bilirubin, Direct 0.4 mg/dL (0.1-0.3); Bilirubin, Total 0.7 mg/dL (0.2-1.2); Protein, Total 5.8 g/dL (5.8-8.1)
[2021-04-01] MEDS ORDERED: DOPamine 400 MG/D5W 250 ML 250 ML ONE (16:13)
[2021-04-01] MEDS ORDERED: Albuterol Sulfate HFA (OR ONLY) ONE (16:33)
[2021-04-01] MEDS ORDERED: Furosemide 40 MG/4 ML VIAL ONE (16:38)
[2021-04-01] MEDS ORDERED: Acetaminophen/Codeine 30-300mg Tablet PO PRN ×2 (18:00)
[2021-04-01] MEDS: Atorvastatin Calcium 40 MG TAB PO SCH (21:40)
[2021-04-01] MEDS: Melatonin 3 MG TAB PO PRN (21:41)
[2021-04-02 05:23] LABS: Albumin 3.3 g/dL (3.4-4.8); Anion Gap 12 mmol/L (10-20); BUN (Urea Nitrogen) 43 mg/dL (9.8-20.1); BUN/Creatinine Ratio 20.48; Calc. Creatinine Clearance 27 mL/min (70-130); Calcium 8.5 mg/dL (7.8-10.44); Carbon Dioxide 23 mmol/L (23-31); Chloride 98 mmol/L (98-107); Glucose 115 mg/dL (80-115); Phosphorus 4.1 mg/dL (2.3-4.7); Potassium 4.4 mmol/L (3.5-5.1); Sodium 129 mmol/L (136-145)
[2021-04-02 05:36] LABS: Hemoglobin 11.8 g/dL (12.0-16.0); Mean Corpuscular HGB CONC 31.8 g/dL (32.0-36.0); Mean Corpuscular Hemoglobin 28.3 pg (27.0-31.0); Mean Platelet Volume 10.6 fL (7.4-10.4); Platelet Count 189 thou/uL (130-400); RBC Distribution Width 15.9 % (11.5-14.5); Red Blood Cell (RBC) Count 4.16 mill/uL (4.20-5.40); White Blood Cell (WBC) Count 6.7 thou/uL (4.8-10.8)
[2021-04-02 05:37] LABS: Burr Cells SLIGHT = 2-5 cells (100X) (0-1/hpf); Eosinophils 1 % (0-10); Lymphocytes 24 % (21-51); MDiff Complete? YES; Monocytes 13 % (0-10); Neutrophil 59 % (42-75); Platelet Morphology Comment Appears Adequate; Reactive Lymphocytes 3 % (0-10)
[2021-04-02] MEDS: Ezetimibe 10 MG TAB PO SCH (09:24)
[2021-04-02] MEDS: Aspirin 81 mg Enteric Coated Tablet PO SCH (09:24)
[2021-04-02] MEDS: Clopidogrel Bisulfate 75 MG TAB PO SCH (09:24)
[2021-04-02] MEDS: Carvedilol 6.25 MG TAB PO SCH ×2 (09:25→16:27)
[2021-04-02] MEDS ORDERED: Albumin 25% 25 GM/100 ML BOT IVPB SCH (11:00)
[2021-04-02] MEDS: Atorvastatin Calcium 40 MG TAB PO SCH (21:19)
[2021-04-02] MEDS: Melatonin 3 MG TAB PO PRN (21:25)
[2021-04-03 05:35] LABS: Anion Gap 12 mmol/L (10-20); BUN (Urea Nitrogen) 34 mg/dL (9.8-20.1); Calc. Creatinine Clearance 35 mL/min (70-130); Calcium 8.6 mg/dL (7.8-10.44); Carbon Dioxide 25 mmol/L (23-31); Chloride 99 mmol/L (98-107); Glucose 105 mg/dL (80-115); Potassium 4.2 mmol/L (3.5-5.1); Sodium 132 mmol/L (136-145)
[2021-04-03 06:41] LABS: #Lymphocytes 1.8 thou/uL (1.20-3.40); #Monocytes 0.9 thou/uL (0.11-0.59); %Basophils 0.7 % (0.0-1.0); %Eosinophils 0.5 % (0.0-10.0); %Lymphocytes 26.7 % (21.0-51.0); %Monocytes 13.3 % (0.0-10.0); %Neutrophils 58.8 % (42.0-75.0); Hemoglobin 11.7 g/dL (12.0-16.0); Large Platelets SLIGHT; MDiff Complete? YES; Mean Corpuscular HGB CONC 31.7 g/dL (32.0-36.0); Mean Corpuscular Hemoglobin 28.2 pg (27.0-31.0); Mean Platelet Volume 10.6 fL (7.4-10.4); Platelet Count 165 thou/uL (130-400); Platelet Morphology Comment Appears Adequate; RBC Distribution Width 15.9 % (11.5-14.5); Red Blood Cell (RBC) Count 4.13 mill/uL (4.20-5.40); White Blood Cell (WBC) Count 6.8 thou/uL (4.8-10.8)
[2021-04-03] MEDS ORDERED: Albumin 25% 25 GM/100 ML BOT IVPB SCH (08:24)
[2021-04-03] MEDS: Carvedilol 6.25 MG TAB PO SCH ×2 (08:50→16:28)
[2021-04-03] MEDS: Clopidogrel Bisulfate 75 MG TAB PO SCH (08:52)
[2021-04-03] MEDS: Ezetimibe 10 MG TAB PO SCH (08:52)
[2021-04-03] MEDS: Aspirin 81 mg Enteric Coated Tablet PO SCH (08:52)
[2021-04-03] MEDS: Famotidine 20 MG TAB PO SCH (08:52)
[2021-04-03] MEDS ORDERED: Furosemide 40 MG/4 ML VIAL SLOW IVP SCH (15:30)
[2021-04-03] MEDS: Atorvastatin Calcium 40 MG TAB PO SCH (21:47)
[2021-04-04 04:49] LABS: Hemoglobin 12.2 g/dL (12.0-16.0); Mean Corpuscular HGB CONC 31.5 g/dL (32.0-36.0); Mean Corpuscular Hemoglobin 28.2 pg (27.0-31.0); Mean Corpuscular Volume 89.6 fL (78.0-98.0); RBC Distribution Width 15.9 % (11.5-14.5); Red Blood Cell (RBC) Count 4.33 mill/uL (4.20-5.40); White Blood Cell (WBC) Count 8.4 thou/uL (4.8-10.8)
[2021-04-04 05:14] LABS: Anion Gap 14 mmol/L (10-20); BUN (Urea Nitrogen) 32 mg/dL (9.8-20.1); Calc. Creatinine Clearance 51 mL/min (70-130); Carbon Dioxide 28 mmol/L (23-31); Chloride 97 mmol/L (98-107); Potassium 4.6 mmol/L (3.5-5.1); Sodium 134 mmol/L (136-145)
[2021-04-04 05:15] LABS: Calcium 8.8 mg/dL (7.8-10.44); Glucose 80 mg/dL (80-115)
[2021-04-04 06:11] LABS: Mean Platelet Volume 10.8 fL (7.4-10.4); Platelet Count 161 thou/uL (130-400)
[2021-04-04 06:12] LABS: Band 3 % (5-11); Eosinophils 1 % (0-10); Large Platelets SLIGHT; Lymphocytes 21 % (21-51); MDiff Complete? YES; Monocytes 5 % (0-10); Neutrophil 67 % (42-75); Platelet Morphology Comment Appears Adequate; Polychromasia SLIGHT = 2-3 cells (100X) (0-2/hpf); Reactive Lymphocytes 3 % (0-10)
[2021-04-04] MEDS: Clopidogrel Bisulfate 75 MG TAB PO SCH (08:41)
[2021-04-04] MEDS: Carvedilol 6.25 MG TAB PO SCH ×2 (08:41→17:23)
[2021-04-04] MEDS: Aspirin 81 mg Enteric Coated Tablet PO SCH (08:42)
[2021-04-04] MEDS: Ezetimibe 10 MG TAB PO SCH (08:42)
[2021-04-04] MEDS ORDERED: Spironolactone 25 MG TAB PO SCH ×2 (09:00→21:00)
[2021-04-04] MEDS: Torsemide 10 MG TAB PO SCH (09:02)
[2021-04-04] MEDS ORDERED: Torsemide 10 MG TAB PO SCH (12:45)
[2021-04-04] MEDS: Atorvastatin Calcium 40 MG TAB PO SCH (20:20)
[2021-04-05] MEDS: Cepastat Lozenges 1 LOZ PO PRN ×2 (04:13→08:32)
[2021-04-05 04:46] LABS: ALT (SGPT) 94 U/L (8-55); AST (SGOT) 53 U/L (5-34); Albumin 3.4 g/dL (3.4-4.8); Alkaline Phosphatase 131 U/L (40-110); Anion Gap 12 mmol/L (10-20); BUN (Urea Nitrogen) 28 mg/dL (9.8-20.1); Bilirubin, Total 0.6 mg/dL (0.2-1.2); Calc. Creatinine Clearance 61 mL/min (70-130); Calcium 8.4 mg/dL (7.8-10.44); Carbon Dioxide 31 mmol/L (23-31); Chloride 98 mmol/L (98-107); Globulin 2.6 g/dL (2.4-3.5); Glucose 102 mg/dL (80-115); Potassium 3.5 mmol/L (3.5-5.1); Sodium 137 mmol/L (136-145)
[2021-04-05] MEDS: Carvedilol 6.25 MG TAB PO SCH (08:31)
[2021-04-05] MEDS: Clopidogrel Bisulfate 75 MG TAB PO SCH (08:31)
[2021-04-05] MEDS: Aspirin 81 mg Enteric Coated Tablet PO SCH (08:31)
[2021-04-05] MEDS: Famotidine 20 MG TAB PO SCH (08:31)
[2021-04-05] MEDS: Ezetimibe 10 MG TAB PO SCH (08:31)
[2021-04-05] MEDS: Torsemide 10 MG TAB PO SCH (08:32)
[2021-04-05] MEDS ORDERED: Nicotine 21 MG PATCH TD SCH (09:00)
[2021-04-05] MEDS ORDERED: Spironolactone 25 MG TAB PO SCH ×2 (09:00)
[2021-04-05 12:21] VITALS: BP 101/57; TEMP 98.7
== END 2021-04-05 13:20 | disposition home or self-care (01) | DRG 273 ==
LOC: 2NO 03:01
PROVIDERS: ADMIT Student in an Organized Health Care Education/Training Program; ATTEND Internal Medicine
PROC: 5A2204Z Restoration of Cardiac Rhythm, Single (ICD-10-PCS; 2021-03-28)
PROC: 02583ZZ Destruction of Conduction Mechanism, Percutaneous Approach (ICD-10-PCS; principal; 2021-04-01)
PROC: 4A023FZ Measurement of Cardiac Rhythm, Percutaneous Approach (ICD-10-PCS; 2021-04-01)
PROC: 4A0234Z Measurement of Cardiac Electrical Activity, Percutaneous Approach (ICD-10-PCS; 2021-04-01)
DX: I48.92 Unspecified atrial flutter (principal); I50.23 Acute on chronic systolic (congestive) heart failure; J18.9 Pneumonia, unspecified organism; N17.9 Acute kidney failure, unspecified; E87.2 Acidosis; E22.2 Syndrome of inappropriate secretion of antidiuretic hormone; I47.1 Supraventricular tachycardia; I42.9 Cardiomyopathy, unspecified; I11.0 Hypertensive heart disease with heart failure; K70.31 Alcoholic cirrhosis of liver with ascites; I25.10 Atherosclerotic heart disease of native coronary artery without angina pectoris; F17.210 Nicotine dependence, cigarettes, uncomplicated; K21.9 Gastro-esophageal reflux disease without esophagitis; E87.6 Hypokalemia; I95.9 Hypotension, unspecified; F10.10 Alcohol abuse, uncomplicated; J44.9 Chronic obstructive pulmonary disease, unspecified; E86.9 Volume depletion, unspecified; R21 Rash and other nonspecific skin eruption; E86.1 Hypovolemia; F15.10 Other stimulant abuse, uncomplicated; I48.91 Unspecified atrial fibrillation; Z95.5 Presence of coronary angioplasty implant and graft; Z91.041 Radiographic dye allergy status; Z79.02 Long term (current) use of antithrombotics/antiplatelets; Z79.82 Long term (current) use of aspirin; Z79.899 Other long term (current) drug therapy; Z90.710 Acquired absence of both cervix and uterus; Z71.51 Drug abuse counseling and surveillance of drug abuser; Z86.73 Personal history of transient ischemic attack (TIA), and cerebral infarction without residual deficits
CPT/HCPCS: 36415; 71045; 76705; 76942; 80048; 80053; 80061; 80069; 80306; 81001; 82550; 82570; 83735; 83930; 83935; 84156; 84300; 84540; 85025; 87086; 93005; 93010; 93613; 93623; 93653; 93798; C1730; C1732; J0696; J1265; J1644; J1650; J1940; J2001; J2370; J2405; J2704; J2720; J3010; J3475; J3490; P9047; Q0162

== ENCOUNTER 2025-05-09 07:23 | Inpatient (IN) | payer MEDICARE ==
[2025-05-09 08:55] VITALS: BMI 19.5
[2025-05-09] MEDS ORDERED: Nitroglycerin 0.4 MG TAB (25 Tab Bottle) SL PRN (09:57)
[2025-05-09] MEDS ORDERED: Acetaminophen 500 MG TAB PO PRN (09:57)
[2025-05-09] MEDS ORDERED: Ondansetron PF 4 MG/2 ML Vial IVP PRN (09:57)
[2025-05-09] MEDS ORDERED: Albuterol 200 PUFF INH INH PRN (10:04)
[2025-05-09] MEDS: Azithromycin 250 MG TAB PO SCH (11:27)
[2025-05-09] MEDS: Carvedilol 6.25 MG TAB PO SCH (16:17)
[2025-05-09] MEDS ORDERED: Communication Order-Pharmacy FS SCH (18:45)
[2025-05-09] MEDS: Sacubitril 24MG/Valsartan 26 MG TAB PO SCH (20:55)
[2025-05-09] MEDS: Enoxaparin 60 MG (0.6 mL) SYRINGE SC SCH (20:55)
[2025-05-09] MEDS: Famotidine 20 MG TAB PO SCH (20:55)
[2025-05-09] MEDS: Benzonatate 100 MG CAP PO PRN (23:01)
[2025-05-10] MEDS: Guaifenesin DM 100-10/5 ML UDCUP PO PRN (05:24)
[2025-05-10 05:39] LABS: ALT (SGPT) 8 U/L (Less than 34); AST (SGOT) 19 U/L (11-34); Albumin 3.3 g/dL (3.1-4.5); Alkaline Phosphatase 86 U/L (40-110); Anion Gap 13 mmol/L (10-20); BUN (Urea Nitrogen) 8 mg/dL (9.8-20.1); Bilirubin, Total 0.2 mg/dL (0.3-1.2); Calc. Creatinine Clearance 75 mL/min (70-130); Calcium 9.0 mg/dL (7.8-10.44); Carbon Dioxide 25 mmol/L (23-31); Cardiac Risk 3.8 (Less than 4.5); Chloride 100 mmol/L (98-107); Cholesterol 212 mg/dl (< 200 Desired); Globulin 3.1 g/dL (2.4-3.5); Glucose 139 mg/dL (80-115); HDL Cholesterol 56 mg/dL (>60 Neg Risk); LDL Cholesterol, Calculated 141 mg/dL; Potassium 4.3 mmol/L (3.5-5.1); Sodium 134 mmol/L (136-145); Triglycerides 77 mg/dL (Less than 150)
[2025-05-10 05:41] LABS: Hematocrit 40.0 % (36.0-47.0); Hemoglobin 12.9 g/dL (12.0-16.0); Mean Corpuscular Hemoglobin 31.4 pg (27.0-31.0); Mean Corpuscular Volume 97.3 fL (78.0-98.0); Platelet Count 199 10x3/uL (130-400); Red Blood Cell (RBC) Count 4.11 mill/uL (4.20-5.40); White Blood Cell (WBC) Count 11.07 10x3/uL (4.8-10.8)
[2025-05-10 06:57] LABS: Giant Platelets 1.0 % (0-5); Platelet Adequacy Comment Platelets Normal; RBC Morphology Within Normal Limits; Smudge Cells 8.8 %
[2025-05-10] MEDS ORDERED: Iopamidol 370 76% 100 ML VIAL ONE (09:37)
[2025-05-10] MEDS: Furosemide 20 MG TAB PO SCH (10:11)
[2025-05-10] MEDS: Aspirin 81 mg Enteric Coated Tablet PO SCH (10:12)
[2025-05-10] MEDS ORDERED: EPINEPHrine 1 MG/10 ML Abboject SYRINGE ONE (13:29)
[2025-05-10] MEDS ORDERED: Lidocaine 1% (PF) 30 ML VIAL ONE (13:30)
[2025-05-10] MEDS ORDERED: Heparin 10,000 UNITS/ 10 ML VIAL ONE (13:30)
[2025-05-10] MEDS ORDERED: PHENYLEPHRINE-NS 100 MCG/ML 10 ML SYRINGE ONE (13:30)
[2025-05-10] MEDS ORDERED: Nitroglycerin 50 MG/250 ML BOT 0 ML ONE (13:30)
[2025-05-10] MEDS ORDERED: Acetaminophen/Codeine 30-300mg Tablet PO PRN (14:53)
[2025-05-11 05:09] LABS: #Basophils Less than 0.03 10x3/uL (0.0-0.2); #Eosinophils Less than 0.03 10x3/uL (0.0-0.7); #Monocytes 0.38 10x3/uL (0.11-0.59); #Neutrophils 14.98 10x3/uL (1.40-6.50); %Basophils 0.1 % (0.0-1.0); %Eosinophils 0.0 % (0.0-10.0); %Lymphocytes 5.6 % (21.0-51.0); %Monocytes 2.3 % (0.0-10.0); %Neutrophils 91.4 % (42.0-75.0); Hematocrit 42.7 % (36.0-47.0); Hemoglobin 13.9 g/dL (12.0-16.0); Mean Corpuscular Hemoglobin 32.3 pg (27.0-31.0); Mean Corpuscular Volume 99.1 fL (78.0-98.0); Platelet Count 191 10x3/uL (130-400); Red Blood Cell (RBC) Count 4.31 mill/uL (4.20-5.40); White Blood Cell (WBC) Count 16.38 10x3/uL (4.8-10.8)
[2025-05-11 05:33] LABS: ALT (SGPT) 7 U/L (Less than 34); AST (SGOT) 19 U/L (11-34); Albumin 3.4 g/dL (3.1-4.5); Alkaline Phosphatase 81 U/L (40-110); Anion Gap 14 mmol/L (10-20); BUN (Urea Nitrogen) 9 mg/dL (9.8-20.1); Bilirubin, Total 0.3 mg/dL (0.3-1.2); Calc. Creatinine Clearance 64 mL/min (70-130); Calcium 8.9 mg/dL (7.8-10.44); Carbon Dioxide 25 mmol/L (23-31); Chloride 99 mmol/L (98-107); Globulin 2.7 g/dL (2.4-3.5); Glucose 142 mg/dL (80-115); Potassium 3.9 mmol/L (3.5-5.1); Sodium 134 mmol/L (136-145)
[2025-05-11 11:57] VITALS: BP 137/73; TEMP 98.4
== END 2025-05-11 12:37 | disposition home or self-care (01) | DRG 190 ==
LOC: OBS 08:37
PROVIDERS: ADMIT Student in an Organized Health Care Education/Training Program; ATTEND Family Medicine
PROC: B2111ZZ Fluoroscopy of Multiple Coronary Arteries using Low Osmolar Contrast (ICD-10-PCS; principal; 2025-05-09)
PROC: 4A023N7 Measurement of Cardiac Sampling and Pressure, Left Heart, Percutaneous Approach (ICD-10-PCS; 2025-05-09)
DX: J44.1 Chronic obstructive pulmonary disease with (acute) exacerbation (principal); I21.A1 Myocardial infarction type 2; I42.8 Other cardiomyopathies; I48.92 Unspecified atrial flutter; J96.11 Chronic respiratory failure with hypoxia; I50.42 Chronic combined systolic (congestive) and diastolic (congestive) heart failure; I25.10 Atherosclerotic heart disease of native coronary artery without angina pectoris; F17.210 Nicotine dependence, cigarettes, uncomplicated; F10.90 Alcohol use, unspecified, uncomplicated; I25.5 Ischemic cardiomyopathy; I48.0 Paroxysmal atrial fibrillation; I11.0 Hypertensive heart disease with heart failure; E11.9 Type 2 diabetes mellitus without complications; F32.A Depression, unspecified; Z90.710 Acquired absence of both cervix and uterus; Z98.890 Other specified postprocedural states; Z95.5 Presence of coronary angioplasty implant and graft; Z79.899 Other long term (current) drug therapy; Z79.02 Long term (current) use of antithrombotics/antiplatelets; Z91.041 Radiographic dye allergy status
CPT/HCPCS: 36415; 71275; 80053; 80061; 85025; 93306; 93458; 94640; 94760; 99152; C1769; C1887; J0165; J0461; J1644; J1650; J2250; J2919; J3010; J7030; J7512; J7620; J7626; Q9967